=== PATIENT | male | born 1990 | race African-American/Black ===

== ENCOUNTER 2017-01-01 21:02 | Emergency (ER) | payer MEDICARE ==
[~2017-01-01 21:02] MED LIST: DILA4TAB10 PO; OXYC-360 PO
[2017-01-01 21:05] VITALS: BP 127/58; PULSE 98; RESP 22; TEMP 97.6; O2SAT 98
[2017-01-01 21:33] VITALS: BP 87/51; PULSE 105; RESP 23; O2SAT 92
[2017-01-01] MEDS ORDERED: SODIUM CHLOR 0.9% 1000 ML INJ 1,000 ML IV ONE (21:33)
[2017-01-01 21:36] VITALS: RESP 23; O2SAT 92
[2017-01-01] MEDS ORDERED: SODIUM CHLORIDE 0.9% FLUSH 10 ML FLUSH IVF PRN (21:45)
[2017-01-01] MEDS ORDERED: HYDROmorphone HCL PF 1 MG/ML VIAL IVS ONE (21:45)
[2017-01-01 22:04] LABS: AUTOMATED NEUTROPHIL # 13.7 TH/MM3 (1.8-7.7); BASOPHIL # 0.1 TH/MM3 (0-0.2); BASOPHIL % 0.7 % (0.0-2.0); EOSINOPHIL # 0.1 TH/MM3 (0-0.4); EOSINOPHIL % 0.3 % (0.0-4.0); HEMATOCRIT 22.1 % (39.0-51.0); LYMPH % 11.4 % (9.0-44.0); MEAN CELL VOLUME 80.8 FL (80.0-100.0); MEAN CORPUSCULAR HEMOGLOBIN 27.4 PG (27.0-34.0); MEAN CORPUSCULAR HGB CONC 33.9 % (32.0-36.0); MONO % 9.1 % (0.0-8.0); NEUT % 78.5 % (16.0-70.0); PLATELET COUNT 313 TH/MM3 (150-450); RED BLOOD COUNT 2.73 MIL/MM3 (4.50-5.90); RED CELL DISTRIBUTION WIDTH 21.6 % (11.6-17.2); RETIC % 10.3 % (0.4-3.0); WHITE BLOOD COUNT 17.5 TH/MM3 (4.0-11.0)
[2017-01-01 22:06] LABS: HEMO FLAGS AUTO DIFF; REVIEW FLAG AUTO DIFF
[2017-01-01 22:23] LABS: ANION GAP 8 MEQ/L (5-15); AST (GOT) 105 U/L (15-37); BICARBONATE 25.2 MEQ/L (21.0-32.0); BLOOD UREA NITROGEN 6 MG/DL (7-18); CHLORIDE 105 MEQ/L (98-107); GLOMERULAR FILTRATION RATE 139 ML/MIN (>89); POTASSIUM 3.8 MEQ/L (3.5-5.1); SODIUM (NA) 138 MEQ/L (136-145)
[2017-01-01 22:28] LABS: ALKALINE PHOSPHATASE 114 U/L (45-117); ALT (GPT) 90 U/L (12-78); TOTAL BILIRUBIN ADULT 3.7 MG/DL (0.2-1.0)
[2017-01-01 22:53] LABS: BANDS 3 % (0-6); CORRECTED NUCLEATED RBC 12 /100 WBC (0-0); NEUTROPHIL # MANUAL DIFF 15.2 TH/MM3 (1.8-7.7); POLYS (SEG NEUTROPHILS) 84 % (16-70); WBC DIFF SAMPLE 100
[2017-01-01 22:54] LABS: OVALOCYTES 1+ (NORMAL); PLATELET ESTIMATE SMEAR NORMAL (NORMAL); PLATELET MORPHOLOGY NORMAL (NORMAL); SCAN/DIFF FINAL DIFF MANUAL; SICKLE CELLS 2+ (NORMAL); TARGET CELLS 1+ (NORMAL); TEARDROP RBCS 1+ (NORMAL)
[2017-01-01] MEDS ORDERED: HYDROmorphone HCL PF 1 MG/ML VIAL IV PUSH ONE (23:30)
[2017-01-02] VITALS: BP 124/66; PULSE 89; RESP 19; O2SAT 96
--- NOTE | 2017-01-02 00:12 | PD ---
HPI Chief Complaint: Sickle Cell Time Seen by Provider: 21:23 Travel History International Travel<30 days: No Contact w/Intl Traveler<30days: No Traveled to known affect area: No History of Present Illness HPI This is a 26-year-old male who has a history of sickle cell disease who presents to the emergency department with pain all over his body, worse in his joints, constant, severe that been going on for 2 days. Patient says he was taking Percocet at home but that wasn't helping. He denies any shortness of breath, chest pain or fever. 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 PFSH Past Medical History Anemia: Yes Blood Disorders: No Anxiety: No Depression: No Cancer: No Cardiovascular Problems: No Diabetes: No Endocrine: No Gastrointestinal Disorders: No Genitourinary: No Immune Disorder: No Implanted Vascular Access Dvce: No Musculoskeletal: No Neurologic: No Psychiatric: No Reproductive: No Respiratory: No Immunizations Current: Yes Sickle Cell Disease: Yes PNEUMOCCOCAL Vaccine (Year): 2 Past Surgical History Cholecystectomy: Yes Other Surgery: No Social History Alcohol Use: No Tobacco Use: No Substance Use: Yes (MARIJUANA) Allergies-Medications (Allergen,Severity, Reaction): Coded Allergies: No Known Allergies (Verified , 11/30/15) Reported Meds & Prescriptions Reported Meds & Active Scripts Active No Active Prescriptions or Reported Medications Review of Systems Except as stated in HPI: all other systems reviewed are Neg Physical Exam Narrative GENERAL: Uncomfortable appearing. SKIN: Focused skin assessment warm and dry. HEAD: Atraumatic. Normocephalic. EYES: Pupils equal and round. No injection or drainage. ENT: Moist mucous membranes NECK: Trachea midline. CARDIOVASCULAR: Regular rate and rhythm. No murmur appreciated. RESPIRATORY: 3/6 systolic murmur. GASTROINTESTINAL: Abdomen soft, non-tender, nondistended. MUSCULOSKELETAL: No obvious deformities. NEUROLOGICAL: Awake and alert. No obvious cranial nerve deficits. Moving all extremities. PSYCHIATRIC: Appropriate mood and affect; insight and judgment normal. Data Data Last Documented VS Vital Signs Date Time Temp Pulse Resp B/P Pulse Ox O2 Delivery O2 Flow Rate FiO2 01/01/17 21:36 23 92 Room Air 01/01/17 21:33 105 87/51 01/01/17 21:05 97.6 Orders Complete Blood Count With Diff (01/01/17 21:33) Comprehensive Metabolic Panel (01/01/17 21:33) Retic Count (01/01/17 21:33) Ecg Monitoring (01/01/17 21:33) Iv Access Insert/Monitor (01/01/17 21:33) Oximetry (01/01/17 21:33) Sodium Chloride 0.9% Flush (Ns Flush) (01/01/17 21:45) Sodium Chlor 0.9% 1000 Ml Inj (Ns 1000 M (01/01/17 21:33) Hydromorphone Pf Inj (Dilaudid Pf Inj) (01/01/17 21:45) Hydromorphone Pf Inj (Dilaudid Pf Inj) (01/01/17 23:30) Chest, Single Ap (01/02/17 ) Urinalysis - C+S If Indicated (01/02/17 00:12) Sodium Chlor 0.9% 1000 Ml Inj (Ns 1000 M (01/02/17 00:15) Lactic Acid (01/02/17 00:12) Cath For Specimen (01/02/17 01:16) Labs Laboratory Tests Test 01/01/17 01/02/17 01/02/17 21:30 00:25 01:15 White Blood Count 17.5 TH/MM3 Red Blood Count 2.73 MIL/MM3 Hemoglobin 7.5 GM/DL Hematocrit 22.1 % Mean Corpuscular Volume 80.8 FL Mean Corpuscular Hemoglobin 27.4 PG Mean Corpuscular Hemoglobin 33.9 % Concent Red Cell Distribution Width 21.6 % Platelet Count 313 TH/MM3 Mean Platelet Volume 9.3 FL Neutrophils (%) (Auto) 78.5 % Lymphocytes (%) (Auto) 11.4 % Monocytes (%) (Auto) 9.1 % Eosinophils (%) (Auto) 0.3 % Basophils (%) (Auto) 0.7 % Neutrophils # (Auto) 13.7 TH/MM3 Lymphocytes # (Auto) 2.0 TH/MM3 Monocytes # (Auto) 1.6 TH/MM3 Eosinophils # (Auto) 0.1 TH/MM3 Basophils # (Auto) 0.1 TH/MM3 CBC Comment AUTO DIFF Differential Total Cells 100 Counted Neutrophils % (Manual) 84 % Band Neutrophils % 3 % Lymphocytes % 9 % Monocytes % 4 % Neutrophils # (Manual) 15.2 TH/MM3 Nucleated Red Blood Cells 12 /100 WBC Differential Comment FINAL DIFF MANUAL Platelet Estimate NORMAL Platelet Morphology Comment NORMAL Sickle Cells 2+ Target Cells 1+ Tear Drop Cells 1+ Ovalocytes 1+ Reticulocyte Count 10.3 % Absolute Reticulocyte Count 280.5 MIL/L Sodium Level 138 MEQ/L Potassium Level 3.8 MEQ/L Chloride Level 105 MEQ/L Carbon Dioxide Level 25.2 MEQ/L Anion Gap 8 MEQ/L Blood Urea Nitrogen 6 MG/DL Creatinine 0.81 MG/DL Estimat Glomerular Filtration 139 ML/MIN Rate Random Glucose 127 MG/DL Calcium Level 8.7 MG/DL Total Bilirubin 3.7 MG/DL Aspartate Amino Transf 105 U/L (AST/SGOT) Alanine Aminotransferase 90 U/L (ALT/SGPT) Alkaline Phosphatase 114 U/L Total Protein 7.7 GM/DL Albumin 4.0 GM/DL Lactic Acid Level 0.8 mmol/L Urine Color YELLOW Urine Turbidity CLEAR Urine pH 6.5 Urine Specific Scott 1.008 Urine Protein NEG mg/dL Urine Glucose (UA) NEG mg/dL Urine Ketones NEG mg/dL Urine Occult Blood TRACE Urine Nitrite NEG Urine Bilirubin NEG Urine Urobilinogen LESS THAN 2.0 MG/DL Urine Leukocyte Esterase NEG Urine RBC LESS THAN 1 /hpf Urine WBC 1 /hpf Microscopic Urinalysis Comment CULT NOT INDICATED MDM Medical Decision Making Medical Screen Exam Complete: Yes Emergency Medical Condition: Yes Interpretation(s) Leukocytosis, likely stress response in the absence of fever or localized infectious symptoms Hemoglobin is 7.5 Total bilirubin is 3.7 Mild transaminitis Differential Diagnosis Sickle cell vaso-occlusive crisis, acute chest syndrome, sepsis Narrative Course This is a 26-year-old male who presents to the emergency department with pain all over his body in the setting of a sickle cell crisis. He was placed on a monitor and an IV was established. Labs demonstrate a leukocytosis which I suspect his stress response. He is afebrile, has a normal chest x-ray and a normal urinalysis with no localizing infectious symptoms. Patient was given IV fluids. He received 2 doses of IV Dilaudid and his symptoms improved. Patient will be discharged home on pain control. Diagnosis Primary Impression: Vaso-occlusive sickle cell crisis Patient Instructions: General Instructions Additional Instructions: If you develop severe chest pain, shortness of breath, sweating, lightheadedness , dizziness or difficulty breathing return to the emergency department immediately. Followup with your primary care physician in 2-3 days if your symptoms are not resolved. Med/Other Pt SpecificInfo: Prescription(s) given Scripts Ondansetron Odt (Zofran Odt)4 Mg Tab4 Mg SL Q6HR PRN (Nausea/Vomiting) #14 TAB Ref 0 Prov:Marta Morales MD 01/02/17 Oxycodone-Acetaminophen (Percocet)5-325 mg Tab1-2 Tab PO Q6H PRN (PAIN) #15 TAB Ref 0 Prov:Marta Morales MD 01/02/17 Disposition: 01 DISCHARGE HOME Condition: Stable Marta Morales MD January 02, 2017 00:11
[2017-01-02] MEDS ORDERED: SODIUM CHLOR 0.9% 1000 ML INJ 1,000 ML IV ONE (00:15)
--- NOTE | 2017-01-02 01:12 | RADRPT ---
EXAM DATE/TIME: 01/02/2017 00:29 [facility] COMPARISON: CHEST SINGLE AP, August 21, 2014, 7:01. INDICATIONS : Chest and body pain. MEDICAL HISTORY : Sickle Cell disease. SURGICAL HISTORY : None. ENCOUNTER: Initial ACUITY: 1 day PAIN SCORE: 10/10 LOCATION: Bilateral chest FINDINGS: A single view of the chest demonstrates the lungs to be symmetrically aerated without evidence of mas s, infiltrate or effusion. The cardiomediastinal contours are unremarkable. Osseous structures are intact. CONCLUSION: Normal examination. Brandin Masters Jr., MD on January 02, 2017 at 1:11 Board Certified Radiologist. This report was verified electronically.
[2017-01-02 01:28] LABS: BLOOD, URINE TRACE (NEG); GLUCOSE,URINE NEG (NEG); KETONE, URINE NEG (NEG); NITRITE,URINE NEG (NEG); PH, URINE 6.5 (5.0-8.5); URINE COLOR YELLOW (YELLW/STRAW)
[2017-01-02 01:38] LABS: COMMENT (UR) CULT NOT INDICATED; CULTURE IF INDICATED CULT NOT INDICATED
[2017-01-02] MEDS ORDERED: HYDROmorphone HCL PF 1 MG/ML VIAL IV PUSH ONE (01:45)
[2017-01-02] MEDS ORDERED: PERC5TAB12 PO (01:46)
[2017-01-02] MEDS ORDERED: ZOFR4TAB3 SL (01:46)
[2017-01-02 02:00] VITALS: BP 112/59; PULSE 98; RESP 20; O2SAT 98
== END 2017-01-02 02:27 | disposition home or self-care (01) ==
LOC: NEPC 21:02
DX: D57.00 Hb-SS disease with crisis, unspecified (principal)
CPT/HCPCS: 71010; 80053; 81001; 83605; 85007; 85027; 85044; 96361; 96374; 96376; 99285; J1170; J7030

== ENCOUNTER 2017-01-02 10:36 | Inpatient (IN) | payer MEDICARE ==
[~2017-01-02] VITALS: Ht 165.1 cm; Wt 50.3 kg
[2017-01-02] VITALS (7 sets, daily range): BP systolic 104–139; BP diastolic 51–62; PULSE 88–161; RESP 14–18; TEMP 97.8–102.1; O2SAT 92–100
[~2017-01-02 10:36] MED LIST changes: -DILA4TAB10 PO; -OXYC-360 PO; +PERC5TAB12 PO; +ZOFR4TAB3 SL
[2017-01-02] MEDS ORDERED: HYDROmorphone HCL PF 1 MG/ML VIAL IV PUSH ONE ×2 (11:00→13:00)
[2017-01-02] MEDS ORDERED: SODIUM CHLOR 0.9% 1000 ML INJ 1,000 ML IV ONE (11:00)
[2017-01-02 11:32] LABS: AUTOMATED NEUTROPHIL # 10.7 TH/MM3 (1.8-7.7); BASOPHIL # 0.1 TH/MM3 (0-0.2); BASOPHIL % 0.6 % (0.0-2.0); EOSINOPHIL # 0.1 TH/MM3 (0-0.4); EOSINOPHIL % 0.5 % (0.0-4.0); HEMATOCRIT 22.8 % (39.0-51.0); LYMPH % 15.9 % (9.0-44.0); LYMPHOCYTE # 2.4 TH/MM3 (1.0-4.8); MEAN CELL VOLUME 80.7 FL (80.0-100.0); MEAN CORPUSCULAR HEMOGLOBIN 27.7 PG (27.0-34.0); MEAN CORPUSCULAR HGB CONC 34.3 % (32.0-36.0); MONO % 10.8 % (0.0-8.0); NEUT % 72.2 % (16.0-70.0); PLATELET COUNT 311 TH/MM3 (150-450); RED BLOOD COUNT 2.82 MIL/MM3 (4.50-5.90); RED CELL DISTRIBUTION WIDTH 21.8 % (11.6-17.2); RETIC % 12.5 % (0.4-3.0); WHITE BLOOD COUNT 14.9 TH/MM3 (4.0-11.0)
[2017-01-02 11:36] LABS: HEMO FLAGS AUTO DIFF
[2017-01-02 11:43] LABS: BICARBONATE 24.4 MEQ/L (21.0-32.0); POTASSIUM 3.7 MEQ/L (3.5-5.1)
--- NOTE | 2017-01-02 12:31 | PD ---
HPI Chief Complaint: Sickle Cell Time Seen by Provider: 10:42 Travel History International Travel<30 days: No Contact w/Intl Traveler<30days: No Traveled to known affect area: No History of Present Illness HPI 26yo M with PMH of sickle cell disease presents to the ED with c/o generalized pain. Pt was just discharged from [place] this morning after 2 doses of dilaudid. Pt states he was instructed to return to the ED if pain returned. Denies any fever, chest pain, sob, n/v, abdominal pain, focal weakness or numbness. PFSH Past Medical History Anemia: Yes (SICKLE CELL ANEMIA) Blood Disorders: No Anxiety: No Depression: No Cancer: No Cardiovascular Problems: No Diabetes: No Endocrine: No Gastrointestinal Disorders: No Genitourinary: No Immune Disorder: No Implanted Vascular Access Dvce: No Musculoskeletal: No Neurologic: No Psychiatric: No Reproductive: No Respiratory: No Immunizations Current: Yes Sickle Cell Disease: Yes Influenza Vaccination: No PNEUMOCCOCAL Vaccine (Year): 2 ?: Not Past Surgical History Cholecystectomy: Yes Other Surgery: No Social History Alcohol Use: No Tobacco Use: No Substance Use: Yes (MARIJUANA) Allergies-Medications (Allergen,Severity, Reaction): Coded Allergies: No Known Allergies (Verified , 01/02/17) Reported Meds & Prescriptions Reported Meds & Active Scripts Active Zofran Odt (Ondansetron Odt) 4 Mg Tab 4 Mg SL Q6HR PRN Percocet (Oxycodone-Acetaminophen) 5-325 mg Tab 1-2 Tab PO Q6H PRN Review of Systems Except as stated in HPI: all other systems reviewed are Neg Physical Exam Narrative GENERAL: 26yo M in moderate distress. SKIN: Focused skin assessment warm/dry. HEAD: Atraumatic. Normocephalic. CARDIOVASCULAR: Regular rate and rhythm. No murmur appreciated. RESPIRATORY: No accessory muscle use. Clear to auscultation. Breath sounds equal bilaterally. GASTROINTESTINAL: Abdomen soft, non-tender, nondistended. No rebound tenderness or guarding. MUSCULOSKELETAL: No obvious deformities. No clubbing. No cyanosis. No edema. NEUROLOGICAL: Awake and alert. No obvious cranial nerve deficits. Motor grossly within normal limits. Normal speech. PSYCHIATRIC: Appropriate mood and affect; insight and judgment normal. Data Data Last Documented VS Vital Signs Date Time Temp Pulse Resp B/P Pulse Ox O2 Delivery O2 Flow Rate FiO2 01/02/17 11:38 93 14 118/62 99 Nasal Cannula 2 01/02/17 10:37 97.8 Orders Hydromorphone Pf Inj (Dilaudid Pf Inj) (01/02/17 11:00) Sodium Chlor 0.9% 1000 Ml Inj (Ns 1000 M (01/02/17 11:00) Basic Metabolic Panel (Bmp) (01/02/17 10:52) Complete Blood Count With Diff (01/02/17 10:52) Retic Count (01/02/17 10:52) Admit Order (Ed Use Only) (01/02/17 12:50) Hydromorphone Pf Inj (Dilaudid Pf Inj) (01/02/17 13:00) Labs Laboratory Tests Test 01/02/17 11:00 White Blood Count 14.9 TH/MM3 Red Blood Count 2.82 MIL/MM3 Hemoglobin 7.8 GM/DL Hematocrit 22.8 % Mean Corpuscular Volume 80.7 FL Mean Corpuscular Hemoglobin 27.7 PG Mean Corpuscular Hemoglobin 34.3 % Concent Red Cell Distribution Width 21.8 % Platelet Count 311 TH/MM3 Mean Platelet Volume 9.6 FL Neutrophils (%) (Auto) 72.2 % Lymphocytes (%) (Auto) 15.9 % Monocytes (%) (Auto) 10.8 % Eosinophils (%) (Auto) 0.5 % Basophils (%) (Auto) 0.6 % Neutrophils # (Auto) 10.7 TH/MM3 Lymphocytes # (Auto) 2.4 TH/MM3 Monocytes # (Auto) 1.6 TH/MM3 Eosinophils # (Auto) 0.1 TH/MM3 Basophils # (Auto) 0.1 TH/MM3 CBC Comment AUTO DIFF Differential Total Cells 100 Counted Neutrophils % (Manual) 59 % Band Neutrophils % 3 % Lymphocytes % 29 % Monocytes % 8 % Eosinophils % 1 % Neutrophils # (Manual) 9.2 TH/MM3 Nucleated Red Blood Cells 9 /100 WBC Differential Comment FINAL DIFF MANUAL Platelet Estimate NORMAL Platelet Morphology Comment NORMAL Polychromasia 2.4 % Sickle Cells 1+ Target Cells 2+ Red Cell Morphology Comment Reticulocyte Count 12.5 % Absolute Reticulocyte Count 351.5 MIL/L Sodium Level 138 MEQ/L Potassium Level 3.7 MEQ/L Chloride Level 105 MEQ/L Carbon Dioxide Level 24.4 MEQ/L Anion Gap 9 MEQ/L Blood Urea Nitrogen 5 MG/DL Creatinine 0.64 MG/DL Estimat Glomerular Filtration 182 ML/MIN Rate Random Glucose 101 MG/DL Calcium Level 8.6 MG/DL Total Bilirubin 5.1 MG/DL Direct Bilirubin 0.8 MG/DL Indirect Bilirubin 4.3 MG/DL Aspartate Amino Transf 91 U/L (AST/SGOT) Alanine Aminotransferase 80 U/L (ALT/SGPT) Alkaline Phosphatase 114 U/L Total Protein 7.2 GM/DL Albumin 3.6 GM/DL 25-Hydroxy Vitamin D Total 5.9 ng/ML MDM Medical Decision Making Medical Screen Exam Complete: Yes Emergency Medical Condition: Yes Differential Diagnosis Vasoocclusive crisis Narrative Course 26yo M with sickle cell disease here with generalized pain that feels like his sickle cell. Pt was here today and had negative CXR and UA. Labs reviewed, leukocytosis at 14.9 which is improved from 17.5 yesterday. H/H is at baseline at 7.8/22.8. Pt does have elevated absolute reticulocyte count at 351.5. Pt given dilaudid 1mg IV and NS IVF. Pt reevaluated at bedside and states he is still in pain. Pt given another dose of dilaudid IV. Discussed case with resident physician. Will admit for observation for vasoocclusive crisis. Diagnosis Primary Impression: Vaso-occlusive sickle cell crisis Admitting Information Admitting Physician Requests: Observation Krupa Phelps DO January 02, 2017 12:31
[2017-01-02 12:32] LABS: BANDS 3 % (0-6); CORRECTED NUCLEATED RBC 9 /100 WBC (0-0); EOSINOPHILS 1 % (0-4); NEUTROPHIL # MANUAL DIFF 9.2 TH/MM3 (1.8-7.7); PLATELET ESTIMATE SMEAR NORMAL (NORMAL); POLYS (SEG NEUTROPHILS) 59 % (16-70); SICKLE CELLS 1+ (NORMAL); WBC DIFF SAMPLE 100
[2017-01-02 12:33] LABS: PLATELET MORPHOLOGY NORMAL (NORMAL); POLYCHROMASIA 2.4 % (0.0-1.9); SCAN/DIFF FINAL DIFF MANUAL; TARGET CELLS 2+ (NORMAL)
[2017-01-02] MEDS ORDERED: ACETAMINOPHEN 325 MG TAB PO PRN (13:00)
[2017-01-02] MEDS ORDERED: ONDANSETRON HCL 4 MG/2 ML VIAL IV PRN (13:00)
[2017-01-02] MEDS ORDERED: HYDROmorphone HCL PF 1 MG/ML VIAL IV PRN (13:00)
[2017-01-02] MEDS: SODIUM CHLOR 0.9% 1000 ML INJ 1,000 ML IV SCH ×2 (13:34→21:54)
[2017-01-02] MEDS: HEPARIN SODIUM - SQ 10,000 UNITS/ML VIAL SQ SCH ×2 (13:34→21:53)
--- NOTE | 2017-01-02 13:46 | HHI.HP ---
HPI Service Family Medicine Primary Care Physician Unknown Admission Diagnosis Vasooclussive crisis Diagnoses: International Travel<30 Days: No Contact w/Intl Traveler<30days: No Known Affected Area: No History of Present Illness Patient is a 26 year old male with history of sickle cell disease who presents with an possibly 2 day history of extremity and low back pain. He states the pain is localized to his knees bilaterally, elbows bilaterally, and lower back. He has had multiple vaso-occlusive crises in the past and his has occurred in multiple locations and this feels similar. No chest pain, shortness of breath. No recent illnesses. No sick contacts. He also denies headache, vision changes, dizziness, abdominal pain. He did have Percocet from a previous hospitalization at [facility] and he states taking 12 of these over the day's time prior to presenting to [facility] yesterday. He presented to the [facility] ED on 01/01 for the symptoms, received 2 doses of IV Dilaudid, and was discharged early this morning. He was given prescription for Percocet 5s but he did not fill this. The pain did not subside despite so he decided to return to the hospital. He states that between his vaso -occlusive crises he doesn't generally take much pain medication so he does not know what his baseline requirements are. In regard to his sickle cell history, patient did not have his first episode of crisis center after high school. He is unsure of the preventative measures that were taken when he was a child, and it is unknown if he has been. He is currently not on any medications aside from occasional pain medications. He denies having history of acute chest, stroke, ACS. 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 (Terri Wilson MD R1) Review of Systems Constitutional: DENIES: Fever, Weight loss, Chills, Dizziness, Change in appetite Endocrine: DENIES: Polyuria Eyes: DENIES: Blurred vision, Diplopia, Eye pain Ears, nose, mouth, throat: DENIES: Hearing loss, Vertigo Respiratory: DENIES: Cough, Snoring, Wheezing, Sputum production, Shortness of breath Cardiovascular: DENIES: Chest pain, Syncope Gastrointestinal: DENIES: Abdominal pain, Black stools, Bloody stools, Constipation, Diarrhea, Nausea, Vomiting Genitourinary: DENIES: Urinary frequency, Urgency, Hematuria, Dysuria Musculoskeletal: COMPLAINS OF: Joint pain (knees, elbows, lower back), Back pain, DENIES: Stiffness Integumentary: DENIES: Pruritus, Rash Neurologic: DENIES: Abnormal gait, Headache, Localized weakness Psychiatric: DENIES: Anxiety, Mood changes, Depression (Terri Wilson MD R1) Past Family Social History Past Medical History Sickle Cell Disease Past Surgical History Cholecystectomy age 12 Still has his spleen Reported Medications Reported Meds & Active Scripts Active Zofran Odt (Ondansetron Odt) 4 Mg Tab 4 Mg SL Q6HR PRN Percocet (Oxycodone-Acetaminophen) 5-325 mg Tab 1-2 Tab PO Q6H PRN (Terri Wilson MD R1) Allergies: Coded Allergies: No Known Allergies (Verified , 01/02/17) Family History Maternal Cousin with SSD Social History Cigarettes: never Alcohol: occasional Illicit: marijuana Lives with mom (Terri Wilson MD R1) Physical Exam Vital Signs Vital Signs Date Time Temp Pulse Resp B/P Pulse Ox O2 Delivery O2 Flow Rate FiO2 01/02/17 11:38 93 14 118/62 99 Nasal Cannula 2 01/02/17 11:02 93 16 104/51 100 Nasal Cannula 2 01/02/17 10:37 97.8 89 16 113/57 99 Physical Exam GENERAL: Thin -Burmese male lying in bed with eyes closed, not moving. He is alert but appears to be in pain. SKIN: Warm and dry. No rashes or bruises. HEAD: Atraumatic. Normocephalic. EYES: PERRL. scleral icterus noted, mild. No injection or drainage. Conjunctival pallor noted. ENT: No nasal bleeding or discharge. Mucous membranes pink and moist. NECK: Trachea midline. No JVD. CARDIOVASCULAR: Regular rate and rhythm. NICKI noted throughout cardiac field. 2+ pulses noted in the upper extremities bilaterally. RESPIRATORY: No accessory muscle use. Clear to auscultation. No wheezes, rales, or rhonchi noted. GASTROINTESTINAL: Abdomen soft, think, non-tender, nondistended. Hepatic and splenic margins not palpable. : Hemoconcentrated urine. MUSCULOSKELETAL: Joint exam is unremarkable with no evidence of swelling, erythema, warmth, or pain. Extremities without clubbing, cyanosis, or edema. No obvious deformities. NEUROLOGICAL: Awake and alert. No obvious cranial nerve deficits. Motor grossly within normal limits. Five out of 5 muscle strength in the arms and legs. Normal speech. PSYCHIATRIC: Appropriate mood and affect; insight and judgment normal. Laboratory Laboratory Tests Test 01/02/17 11:00 White Blood Count 14.9 Red Blood Count 2.82 Hemoglobin 7.8 Hematocrit 22.8 Mean Corpuscular Volume 80.7 Mean Corpuscular Hemoglobin 27.7 Mean Corpuscular Hemoglobin 34.3 Concent Red Cell Distribution Width 21.8 Platelet Count 311 Mean Platelet Volume 9.6 Neutrophils (%) (Auto) 72.2 Lymphocytes (%) (Auto) 15.9 Monocytes (%) (Auto) 10.8 Eosinophils (%) (Auto) 0.5 Basophils (%) (Auto) 0.6 Neutrophils # (Auto) 10.7 Lymphocytes # (Auto) 2.4 Monocytes # (Auto) 1.6 Eosinophils # (Auto) 0.1 Basophils # (Auto) 0.1 CBC Comment AUTO DIFF Differential Total Cells 100 Counted Neutrophils % (Manual) 59 Band Neutrophils % 3 Lymphocytes % 29 Monocytes % 8 Eosinophils % 1 Neutrophils # (Manual) 9.2 Nucleated Red Blood Cells 9 Differential Comment FINAL DIFF MANUAL Platelet Estimate NORMAL Platelet Morphology Comment NORMAL Polychromasia 2.4 Sickle Cells 1+ Target Cells 2+ Red Cell Morphology Comment Reticulocyte Count 12.5 Absolute Reticulocyte Count 351.5 Sodium Level 138 Potassium Level 3.7 Chloride Level 105 Carbon Dioxide Level 24.4 Anion Gap 9 Blood Urea Nitrogen 5 Creatinine 0.64 Estimat Glomerular Filtration 182 Rate Random Glucose 101 Calcium Level 8.6 (Terri Wilson MD R1) Result Diagram: 01/02/17 1100 01/02/17 1100 Imaging CXR performed 01/02 at 0029 - normal examination (Terri Wilson MD R1) Assessment and Plan Assessment and Plan 26-year-old male with a history of sickle cell anemia who presents with acute vaso-occlusive crisis without evidence of stroke, ACS, or acute chest syndrome. Admit to inpatient for further monitoring and pain control. Code Status Full code Discussed Condition With Seen and discussed with Dr. Hinson and Dr. Elena (Terri Wilson MD R1) Attending Attestation Patient seen and examined. Case reviewed and discussed with the resident team. Agree with plan of care as discussed with me and documented in the resident note. pt seen on admission in the ED (Cheyenne Hinson MD) Problem List: (1) Vaso-occlusive sickle cell crisis Status: Acute Plan: Patient presents with acute vaso-occlusive crisis. His reticulocyte count is noted to be greater than 15, and it is increased from evaluation yesterday. His H&H is 7.8/22.8. On review of EMR, it appears patient's baseline is approximately 78. Highest hemoglobin on record is 9.4 after transfusion. CXR performed early this morning was unremarkable. CBC to be at approximately patient's baseline. There is no evidence of infection on patient's history or physical exam. Plan: * Aggressive IV fluid resuscitation is indicated-->isotonic IV fluids at 100 mL/ h, may decrease in the next 24h or as needed. * Monitor H&H. Avoid transfusions given increased mortality with these * Pain management with Dilaudid 0.5 mg IV q4h for pain 1-5, Dilaudid 1 mg IV q4h for pain 6-10. We'll give laxative and antiemetics to manage side effects * Hematology consult. Patient has not had any outpatient follow-up in adulthood , likely would benefit from vaccinations and Hydroxyurea * Case management consult to assist in setting up with PCP * Hepatic function panel ordered given patient has mild jaundice (2) Fluids/Electrolytes/Nutrition/Prophylaxis Status: Acute Plan: Fluids: NS @ 100ml/hr Electrolytes: monitor and replete as needed Nutrition: Regular diet DVT Prophylaxis: Heparin 5000U subQ q8hr/bilateral SCDs GI Prophylaxis: None indicated (Terri Wilson MD R1) Physician Certification 2 Midnight Certification Type: Admission for Inpatient Services Order for Inpatient Services The services are ordered in accordance with Medicare regulations or non- Medicare payer requirements, as applicable. In the case of services not specified as inpatient-only, they are appropriately provided as inpatient services in accordance with the 2-midnight benchmark. Estimated LOS (days): 3 days is the estimated time the patient will need to remain in the hospital, assuming treatment plan goals are met and no additional complications. Post-Hospital Plan: Home (Terri Wilson MD R1) Terri Wilson MD R1 January 02, 2017 13:46 Cheyenne Hinson MD January 03, 2017 10:44
[2017-01-02] MEDS: HYDROmorphone HCL PF 2 MG/ML VIAL IV PRN ×2 (15:00→19:45)
[2017-01-02 16:47] LABS: TOTAL BILIRUBIN ADULT 5.1 MG/DL (0.2-1.0)
[2017-01-02 16:51] LABS: INDIRECT BILIRUBIN 4.3 MG/DL (0.0-0.8)
[2017-01-02] MEDS: SODIUM CHLORIDE 0.9% FLUSH 10 ML FLUSH IV FLUSH SCH (19:46)
--- NOTE | 2017-01-02 21:08 | HHI.FPPN ---
Addendum to progress note ADDENDUM Reason for addendum: Additonal documentation Additional information S: Paged regarding oral temperature of 102.1F. Patient was seen and examined. Patient was resting comfortably in bed. Denied any new symptoms since presenting to the ED. Denied feeling feverish, denied malaise, chest pain, shortness of breath, cough, sputum production, belly pain, headache, visual changes, urinary symptoms, denied any new pain around body. He stated his pain was better controlled now at a 4/10 improved from 8/10 on admission. O: GENERAL: -Kittitian male lying in bed in NAD SKIN: Warm and dry. No rashes or bruises. EYES: Mild scleral icterus. No injection or drainage. Conjunctival pallor. CARDIOVASCULAR: Regular rate and rhythm. NICKI noted throughout cardiac field. Peripheral pulses 2+. RESPIRATORY: No accessory muscle use. Clear to auscultation throughout. No wheezes, rales, or rhonchi. GASTROINTESTINAL: Abdomen soft, non-tender, nondistended, +BS. Hepatic and splenic margins not palpable. MUSCULOSKELETAL: Joint exam is unremarkable with no evidence of swelling, erythema, warmth, or pain. Extremities without edema. No obvious deformities. NEUROLOGICAL: Awake and alert. criminalist technician grossly intact. Motor grossly within normal limits. Normal speech. A/P: Patient is a 26 year old male with sickle cell anemia presented with acute vaso-occlusive crisis without evidence of stroke, ACS, or acute chest syndrome now with a febrile episode up to 102.1F - Patient is well-appearing with no acute symptoms - Exam is reassuring at this time with clear lung oates, benign abdomen and no new bony pain - Patient does have a leukocytosis to 14.9 but improved from 17.5 on previous presentation yesterday, will continue to monitor - Will obtain blood cultures and urine culture - Instructed patient that if he have any new symptoms particularly fever, chest pain, SOB, cough, BISHOP, neck stiffness, localized weakness, abdominal pain to let his nurse know and patient will be reevaluated Aramis Izquierdo MD R1 January 02, 2017 21:08
[2017-01-02] MEDS: DOCUSATE SODIUM 100 MG CAP PO SCH (21:54)
[2017-01-02 22:55] LABS: BLOOD, URINE NEG (NEG); GLUCOSE,URINE NEG (NEG); KETONE, URINE NEG (NEG); NITRITE,URINE NEG (NEG); URINE COLOR YELLOW (YELLW/STRAW)
[2017-01-02 22:56] LABS: COMMENT (UR) CULT NOT INDICATED; CULTURE IF INDICATED CULT NOT INDICATED
[2017-01-02] MEDS: HYDROmorphone HCL PF 1 MG/ML VIAL IV PUSH PRN (23:44)
[2017-01-02] MEDS: SODIUM CHLORIDE 0.9% FLUSH 10 ML FLUSH IV FLUSH PRN (23:46)
[2017-01-03] VITALS (10 sets, daily range): BP systolic 108–144; BP diastolic 53–65; PULSE 74–108; RESP 16–18; TEMP 98.8–102.3; O2SAT 96–99
[2017-01-03] MEDS: HYDROmorphone HCL PF 1 MG/ML VIAL IV PUSH PRN ×5 (04:42→23:31)
[2017-01-03] MEDS: HEPARIN SODIUM - SQ 10,000 UNITS/ML VIAL SQ SCH ×3 (04:42→20:03)
[2017-01-03 07:05] LABS: RETIC % 14.8 % (0.4-3.0)
[2017-01-03 07:07] LABS: AUTOMATED NEUTROPHIL # 8.5 TH/MM3 (1.8-7.7); BASOPHIL # 0.1 TH/MM3 (0-0.2); BASOPHIL % 0.6 % (0.0-2.0); EOSINOPHIL # 0.1 TH/MM3 (0-0.4); EOSINOPHIL % 0.5 % (0.0-4.0); LYMPH % 17.2 % (9.0-44.0); LYMPHOCYTE # 2.2 TH/MM3 (1.0-4.8); MEAN CELL VOLUME 82.5 FL (80.0-100.0); MEAN CORPUSCULAR HEMOGLOBIN 27.2 PG (27.0-34.0); MEAN CORPUSCULAR HGB CONC 32.9 % (32.0-36.0); MONO % 14.8 % (0.0-8.0); NEUT % 66.9 % (16.0-70.0); PLATELET COUNT 263 TH/MM3 (150-450); RED CELL DISTRIBUTION WIDTH 20.2 % (11.6-17.2); WHITE BLOOD COUNT 12.8 TH/MM3 (4.0-11.0)
[2017-01-03 07:09] LABS: REVIEW FLAG FINAL
[2017-01-03] MEDS: SODIUM CHLOR 0.9% 1000 ML INJ 1,000 ML IV SCH ×2 (07:10→18:10)
[2017-01-03 07:15] LABS: HEMO FLAGS AUTO DIFF
[2017-01-03 07:20] LABS: HEMATOCRIT 21.5 % (39.0-51.0)
--- NOTE | 2017-01-03 07:30 | MB ---
cc: ANGELA BARGER M.D. DATE OF CONSULTATION 01/02/2017 REASON FOR CONSULTATION Consult requested by family practice resident for evaluation of sickle cell painful crisis. HISTORY OF PRESENT ILLNESS Codie is a 26-year-old male. He has a history of sickle-cell disease with multiple painful crisis. He does not have any local ply cutter. He states that he goes to the emergency room whenever he gets the painful crisis. He states that he gets a painful crisis three to four times a year. He came to the emergency room complaining of back pain and leg pain consistent with his painful crisis. The patient is now admitted to the hospital. I have been asked to see him for further evaluation. The patient is not taking any Hydrea or any folic acid. He uses narcotics whenever he can get it from the emergency room. He is not established with any primary physician as well. The patient denies any chest pain. He denies any fevers. The rest of the review of systems is negative. PAST MEDICAL HISTORY Sickle-cell disease with multiple painful crisis. PAST SURGICAL HISTORY Cholecystectomy at age of 12. ALLERGIES None MEDICATIONS Prior to coming to the hospital: 1. Percocet 2. Zofran FAMILY HISTORY Maternal cousin has sickle-cell disease. SOCIAL HISTORY The patient does not smoke cigarettes and does not drink alcohol. PHYSICAL EXAM This is a well-developed Afro-Q[place] male in moderate distress due to the pain. VITAL SIGNS: Temperature 100, heart rate is 88, blood pressure 139/55, O2 suture saturation 98% on room air. HEENT: PERRLA, EOMI, sclerae is deeply icteric. Oral mucosa is dry. NECK: No lymphadenopathy noted. LUNGS: Clear. No wheezing or rales. HEART: Regular rate and rhythm. ABDOMEN: Soft and nontender. No hepatosplenomegaly. EXTREMITIES: No pedal edema. NEUROLOGIC: Awake, alert, and oriented times three. SKIN: No significant lesions are noted. ASSESSMENT 1. History of sickle-cell disease now admitted with a painful crisis. 2. Hemolytic painful crisis. PLAN I have reviewed his available records and I have discussed with the patient regarding the painful crisis. His CBC today showed a white count of 14.9, hemoglobin 7.8, hematocrit 22.8, platelet count is 311. The compressive metabolic profile is significant for bilirubin of 5.1 and direct lumen 4.3, AST is 91, ALT is 80. The patient has hemolytic anemia. The patient is receiving hydration, folic acid, and Dilaudid. I agree with the present management. He does not require any blood transfusion. I will give him one unit of blood transfusion if his hemoglobin dropped below seven. I will get the hemoglobin electrophoresis to confirm sickle-cell disease as well as to evaluate for the hemoglobin F. If the hemoglobin-F is low, then I recommend Hydrea to decrease the incidence of painful crisis. Further recommendations based on his hospital stay. Thank you for asking my opinion. MD RIANNA Henderson/ESPERANZA /7:30 PM /7:23 AM
[2017-01-03 07:39] LABS: POTASSIUM 3.4 MEQ/L (3.5-5.1)
--- NOTE | 2017-01-03 08:53 | PD.ONC.PN ---
Subjective Subjective Remarks Tmax 102.3 overnight. Blood cutures, UA pending. Pt c/o lower back pain Overall pain minimally improved Denies SOB, chest pain Objective Data Date Time Temp Pulse Resp B/P Pulse Ox O2 Delivery O2 Flow Rate FiO2 01/03/17 05:00 99.5 79 16 122/55 99 01/03/17 03:54 96 21 01/03/17 00:17 107 01/03/17 00:00 102.3 108 18 108/53 96 01/02/17 23:28 161 01/02/17 20:00 102.1 98 16 117/58 94 01/02/17 20:00 100 01/02/17 18:00 92 21 01/02/17 16:00 100.0 88 18 139/55 98 01/02/17 11:38 93 14 118/62 99 Nasal Cannula 2 01/02/17 11:02 93 16 104/51 100 Nasal Cannula 2 01/02/17 10:37 97.8 89 16 113/57 99 Result Diagram: 01/03/17 0613 01/03/1713 Laboratory Results Laboratory Tests Test 01/02/17 01/02/17 01/03/17 11:00 21:50 06:13 White Blood Count 14.9 TH/MM3 12.8 TH/MM3 Red Blood Count 2.82 MIL/MM3 2.60 MIL/MM3 Hemoglobin 7.8 GM/DL 7.1 GM/DL Hematocrit 22.8 % 21.5 % Mean Corpuscular Volume 80.7 FL 82.5 FL Mean Corpuscular Hemoglobin 27.7 PG 27.2 PG Mean Corpuscular Hemoglobin 34.3 % 32.9 % Concent Red Cell Distribution Width 21.8 % 20.2 % Platelet Count 311 TH/MM3 263 TH/MM3 Mean Platelet Volume 9.6 FL 9.6 FL Neutrophils (%) (Auto) 72.2 % 66.9 % Lymphocytes (%) (Auto) 15.9 % 17.2 % Monocytes (%) (Auto) 10.8 % 14.8 % Eosinophils (%) (Auto) 0.5 % 0.5 % Basophils (%) (Auto) 0.6 % 0.6 % Neutrophils # (Auto) 10.7 TH/MM3 8.5 TH/MM3 Lymphocytes # (Auto) 2.4 TH/MM3 2.2 TH/MM3 Monocytes # (Auto) 1.6 TH/MM3 1.9 TH/MM3 Eosinophils # (Auto) 0.1 TH/MM3 0.1 TH/MM3 Basophils # (Auto) 0.1 TH/MM3 0.1 TH/MM3 CBC Comment AUTO DIFF AUTO DIFF Differential Total Cells 100 Counted Neutrophils % (Manual) 59 % Band Neutrophils % 3 % Lymphocytes % 29 % Monocytes % 8 % Eosinophils % 1 % Neutrophils # (Manual) 9.2 TH/MM3 Nucleated Red Blood Cells 9 /100 WBC Differential Comment FINAL DIFF MANUAL Platelet Estimate NORMAL Platelet Morphology Comment NORMAL Polychromasia 2.4 % Sickle Cells 1+ Target Cells 2+ Red Cell Morphology Comment Reticulocyte Count 12.5 % 14.8 % Absolute Reticulocyte Count 351.5 MIL/L 377.9 MIL/L Sodium Level 138 MEQ/L 141 MEQ/L Potassium Level 3.7 MEQ/L 3.4 MEQ/L Chloride Level 105 MEQ/L 106 MEQ/L Carbon Dioxide Level 24.4 MEQ/L 27.0 MEQ/L Anion Gap 9 MEQ/L 8 MEQ/L Blood Urea Nitrogen 5 MG/DL 5 MG/DL Creatinine 0.64 MG/DL 0.58 MG/DL Estimat Glomerular Filtration 182 ML/MIN 204 ML/MIN Rate Random Glucose 101 MG/DL 104 MG/DL Calcium Level 8.6 MG/DL 8.4 MG/DL Total Bilirubin 5.1 MG/DL Direct Bilirubin 0.8 MG/DL Indirect Bilirubin 4.3 MG/DL Aspartate Amino Transf 91 U/L (AST/SGOT) Alanine Aminotransferase 80 U/L (ALT/SGPT) Alkaline Phosphatase 114 U/L Total Protein 7.2 GM/DL Albumin 3.6 GM/DL 25-Hydroxy Vitamin D Total 5.9 ng/ML Urine Color YELLOW Urine Turbidity CLEAR Urine pH 7.0 Urine Specific [place] 1.005 Urine Protein NEG mg/dL Urine Glucose (UA) NEG mg/dL Urine Ketones NEG mg/dL Urine Occult Blood NEG Urine Nitrite NEG Urine Bilirubin NEG Urine Urobilinogen 2.0 MG/DL Urine Leukocyte Esterase NEG Urine WBC LESS THAN 1 /hpf Microscopic Urinalysis Comment CULT NOT INDICATED Culture Results Microbiology Date/Time Procedure Status Source Growth 01/02/17 21:50 Urine Culture Received Urine Clean Catch Pending 01/02/17 22:25 Aerobic Blood Culture Received Blood Peripheral Pending 01/02/17 22:25 Anaerobic Blood Culture Received Blood Peripheral Pending 01/02/17 22:30 Aerobic Blood Culture Received Blood Peripheral Pending 01/02/17 22:30 Anaerobic Blood Culture Received Blood Peripheral Pending Administered Medications Medications (Trade) Dose Ordered Sig/Jorge Luis Route PRN Reason Start Time Stop Time Status Last Admin Dose Admin Sodium Chloride (NS 1000 ml Inj) 1,000 ml @ 100 mls/hr Q10H IV 01/02/17 13:00 01/03/17 07:10 Sodium Chloride (NS Flush) 2 ml UNSCH PRN IV FLUSH FLUSH AFTER USING IV ACCESS 01/02/17 13:00 01/02/17 23:46 Sodium Chloride (NS Flush) 2 ml BID IV FLUSH 01/02/17 21:00 01/02/17 19:46 Acetaminophen (Tylenol) 650 mg Q4H PRN PO FEVER 01/02/17 13:00 01/02/17 23:41 Docusate Sodium (Colace) 100 mg BID PO 01/02/17 21:00 01/02/17 21:54 Heparin Sodium (Porcine) (Heparin Inj) 5,000 units Q8H SQ 01/02/17 13:00 01/03/17 04:42 Hydromorphone HCl (Dilaudid Pf Inj) 1 mg Q4H PRN IV PUSH PAIN SCALE 6 TO 10 01/02/17 23:40 01/03/17 04:42 Objective Remarks GENERAL: Young male, asleep in bed on approach. Awakens easily. SKIN: Warm and dry. HEAD: Normocephalic. EYES: No injection or drainage. NECK: Supple, trachea midline. No JVD or lymphadenopathy. CARDIOVASCULAR: Regular rate and rhythm without murmurs. RESPIRATORY: Breath sounds equal bilaterally. No accessory muscle use. GASTROINTESTINAL: Abdomen soft, non-tender, nondistended. EXTREMITIES: No cyanosis, or edema. NEUROLOGICAL: Awakens easily. Moving all extremities. Normal speech. Assessment/Plan Problem List: (1) Vaso-occlusive sickle cell crisis Status: Acute Plan: 01/03/17: Continue IVF, pain medications. Await results of blood cultures, UA and Hgb electrophoresis. Pain is overall slightly improved. Plan to transfuse for Hgb less than 7. Assessment 26 y/o male with history of sickle cell disease presents to the ER with c/o acute vasoocclusive pain crises. Attending Statement c/o back pain Control with dilaudid 1 mg q 4hrs. Does not want to increase it. D/W about hydrea. BC result pending. The exam, history, and the medical decision-making described in the above note were completed with the assistance of the mid-level provider. I reviewed and agree with the findings presented. I attest that I had a [id number] encounter with the patient on the same day, and personally performed and documented my assessment and findings in the medical record. Lisa Pickard January 03, 2017 08:53 Dominic Land MD January 03, 2017 22:08
[2017-01-03] MEDS: MULTIVITAMIN TAB PO SCH (08:54)
[2017-01-03] MEDS: DOCUSATE SODIUM 100 MG CAP PO SCH ×2 (08:54→20:02)
[2017-01-03] MEDS: FOLIC ACID 1 MG TAB PO SCH (08:54)
[2017-01-03] MEDS: SODIUM CHLORIDE 0.9% FLUSH 10 ML FLUSH IV FLUSH SCH ×2 (08:58→20:05)
[2017-01-03 09:17] LABS: BANDS 13 % (0-6); CORRECTED NUCLEATED RBC 3 /100 WBC (0-0); EOSINOPHILS 1 % (0-4); HOWELL-JOLLY BODIES PRESENT (NONE SEEN); NEUTROPHIL # MANUAL DIFF 8.2 TH/MM3 (1.8-7.7); POLYCHROMASIA 2.9 % (0.0-1.9); POLYS (SEG NEUTROPHILS) 51 % (16-70); SICKLE CELLS 2+ (NORMAL); TARGET CELLS 2+ (NORMAL); WBC DIFF SAMPLE 100
[2017-01-03 09:18] LABS: PLATELET ESTIMATE SMEAR NORMAL (NORMAL); PLATELET MORPHOLOGY NORMAL (NORMAL); SCAN/DIFF FINAL DIFF MANUAL
--- NOTE | 2017-01-03 10:30 | HHI.HP ---
[facility] Service Family Medicine Primary Care Physician Unknown Admission Diagnosis Vasooclussive crisis Diagnoses: (1) Vaso-occlusive sickle cell crisis Diagnosis: Principal (2) Fluids/Electrolytes/Nutrition/Prophylaxis Diagnosis: Principal International Travel<30 Days: No Contact w/Intl Traveler<30days: No Known Affected Area: No History of Present Illness Mr Shaw is a 26 year old male with history of sickle cell disease who presented with a 2 day history of extremity and low back pain. He states the pain is localized to his knees bilaterally, elbows bilaterally, and lower back and shoulders bilaterally. He has had multiple vaso-occlusive crises in the past and his has occurred in multiple locations and this feels similar. No chest pain, shortness of breath. No recent illnesses. No sick contacts. He also denies headache, vision changes, dizziness, abdominal pain. He did have Percocet from a previous hospitalization at [facility] and he states taking 12 of these over the day's time prior to presenting to [facility] yesterday. He presented to the [facility] ED on 01/01 for the symptoms, received 2 doses of IV Dilaudid, and was discharged early the morning of admission. He was given prescription for Percocet 5s but he did not fill this. The pain did not subside so he decided to return to the hospital. He states that between his vaso -occlusive crises he doesn't generally take much pain medication so he does not know what his baseline requirements are. In regard to his sickle cell history, patient did not have his first episode of crisis center after high school. He is unsure of the preventative measures that were taken when he was a child, and it is unknown if he has been. He is currently not on any medications aside from occasional pain medications. He denies having history of acute chest, stroke, ACS. He currently has no PCP or animal nutrition teacher with which he follows. He reports feeling improved overnight with the pain meds. However, they only last about 3 hours instead of 4. He declines changes to his pain regimen at this time though a GRAPHICS EDIT TECHNICIAN pump was suggested, toradol or po meds plus iv. His pain is mainly low back and shoulders at this time. He has a fever overnight but no cough or chest sxs. Review of Systems Other Constitutional: DENIES: Fever, Weight loss, Chills, Dizziness, Change in appetite Endocrine: DENIES: Polyuria Eyes: DENIES: Blurred vision, Diplopia, Eye pain Ears, nose, mouth, throat: DENIES: Hearing loss, Vertigo Respiratory: DENIES: Cough, Snoring, Wheezing, Sputum production, Shortness of breath Cardiovascular: DENIES: Chest pain, Syncope Gastrointestinal: DENIES: Abdominal pain, Black stools, Bloody stools, Constipation, Diarrhea, Nausea, Vomiting Genitourinary: DENIES: Urinary frequency, Urgency, Hematuria, Dysuria Musculoskeletal: COMPLAINS OF: Joint pain (knees, elbows, lower back), Back pain, DENIES: Stiffness Integumentary: DENIES: Pruritus, Rash Neurologic: DENIES: Abnormal gait, Headache, Localized weakness Psychiatric: DENIES: Anxiety, Mood changes, Depression Past Family Social History Past Medical History Sickle Cell Disease Past Surgical History Cholecystectomy age 12 Still has his spleen Allergies: Coded Allergies: No Known Allergies (Verified , 01/02/17) Family History Maternal Cousin with SSD Social History Cigarettes: never Alcohol: occasional Illicit: marijuana Lives with mom Physical Exam Vital Signs Vital Signs Date Time Temp Pulse Resp B/P Pulse Ox O2 Delivery O2 Flow Rate FiO2 01/03/17 08:00 99.8 105 16 144/65 99 01/03/17 05:00 99.5 79 16 122/55 99 01/03/17 03:54 96 21 01/03/17 00:17 107 01/03/17 00:00 102.3 108 18 108/53 96 01/02/17 23:28 161 01/02/17 20:00 102.1 98 16 117/58 94 01/02/17 20:00 100 01/02/17 18:00 92 21 01/02/17 16:00 100.0 88 18 139/55 98 01/02/17 11:38 93 14 118/62 99 Nasal Cannula 2 01/02/17 11:02 93 16 104/51 100 Nasal Cannula 2 01/02/17 10:37 97.8 89 16 113/57 99 Physical Exam GENERAL: Thin -Scottish male lying in bed with eyes closed, not moving in position. He is alert but appears to be in some pain. SKIN: Warm and dry. No rashes or bruises. HEAD: Atraumatic. Normocephalic. EYES: PERRL. scleral icterus noted, mild. No injection or drainage. Conjunctival pallor noted. ENT: No nasal bleeding or discharge. Mucous membranes pink and moist. NECK: Trachea midline. No JVD. CARDIOVASCULAR: Regular rate and rhythm. NICKI noted throughout cardiac field. 2+ pulses noted in the upper extremities bilaterally. RESPIRATORY: No accessory muscle use. Clear to auscultation. No wheezes, rales, or rhonchi noted. GASTROINTESTINAL: Abdomen soft, think, non-tender, nondistended. Hepatic and splenic margins not palpable. : Hemoconcentrated urine. MUSCULOSKELETAL: Joint exam is unremarkable with no evidence of swelling, erythema, warmth, or pain. Extremities without clubbing, cyanosis, or edema. No obvious deformities. NEUROLOGICAL: Awake and alert. No obvious cranial nerve deficits. Motor grossly within normal limits. Five out of 5 muscle strength in the arms and legs. Normal speech. PSYCHIATRIC: Appropriate mood and affect; insight and judgment normal. Laboratory Laboratory Tests Test 01/02/17 01/02/17 01/03/17 11:00 21:50 06:13 White Blood Count 14.9 12.8 Red Blood Count 2.82 2.60 Hemoglobin 7.8 7.1 Hematocrit 22.8 21.5 Mean Corpuscular Volume 80.7 82.5 Mean Corpuscular Hemoglobin 27.7 27.2 Mean Corpuscular Hemoglobin 34.3 32.9 Concent Red Cell Distribution Width 21.8 20.2 Platelet Count 311 263 Mean Platelet Volume 9.6 9.6 Neutrophils (%) (Auto) 72.2 66.9 Lymphocytes (%) (Auto) 15.9 17.2 Monocytes (%) (Auto) 10.8 14.8 Eosinophils (%) (Auto) 0.5 0.5 Basophils (%) (Auto) 0.6 0.6 Neutrophils # (Auto) 10.7 8.5 Lymphocytes # (Auto) 2.4 2.2 Monocytes # (Auto) 1.6 1.9 Eosinophils # (Auto) 0.1 0.1 Basophils # (Auto) 0.1 0.1 CBC Comment AUTO DIFF AUTO DIFF Differential Total Cells 100 100 Counted Neutrophils % (Manual) 59 51 Band Neutrophils % 3 13 Lymphocytes % 29 25 Monocytes % 8 10 Eosinophils % 1 1 Neutrophils # (Manual) 9.2 8.2 Nucleated Red Blood Cells 9 3 Differential Comment FINAL DIFF FINAL DIFF MANUAL MANUAL Platelet Estimate NORMAL NORMAL Platelet Morphology Comment NORMAL NORMAL Polychromasia 2.4 2.9 Sickle Cells 1+ 2+ Target Cells 2+ 2+ Red Cell Morphology Comment Reticulocyte Count 12.5 14.8 Absolute Reticulocyte Count 351.5 377.9 Sodium Level 138 141 Potassium Level 3.7 3.4 Chloride Level 105 106 Carbon Dioxide Level 24.4 27.0 Anion Gap 9 8 Blood Urea Nitrogen 5 5 Creatinine 0.64 0.58 Estimat Glomerular Filtration 182 204 Rate Random Glucose 101 104 Calcium Level 8.6 8.4 Total Bilirubin 5.1 Direct Bilirubin 0.8 Indirect Bilirubin 4.3 Aspartate Amino Transf 91 (AST/SGOT) Alanine Aminotransferase 80 (ALT/SGPT) Alkaline Phosphatase 114 Total Protein 7.2 Albumin 3.6 25-Hydroxy Vitamin D Total 5.9 Urine Color YELLOW Urine Turbidity CLEAR Urine pH 7.0 Urine Specific [place] 1.005 Urine Protein NEG Urine Glucose (UA) NEG Urine Ketones NEG Urine Occult Blood NEG Urine Nitrite NEG Urine Bilirubin NEG Urine Urobilinogen 2.0 Urine Leukocyte Esterase NEG Urine WBC LESS THAN 1 Microscopic Urinalysis Comment CULT NOT INDICATED Street-[place] Bodies PRESENT Date/Time Procedure Status Source Growth 01/02/17 22:30 Aerobic Blood Culture Received Blood Peripheral Pending 01/02/17 22:30 Anaerobic Blood Culture Received Blood Peripheral Pending 01/02/17 21:50 Urine Culture Received Urine Clean Catch Pending Result Diagram: 01/03/17 0613 01/03/17 0613 Imaging CXR performed 01/02 at 0029 - normal examination Assessment and Plan Assessment and Plan 26-year-old male with a history of sickle cell anemia who presents with acute vaso-occlusive crisis without evidence of stroke, ACS, or acute chest syndrome. Admit to inpatient for further monitoring and pain control. Problem List: (1) Vaso-occlusive sickle cell crisis Status: Acute Plan: Patient presents with acute vaso-occlusive crisis. His reticulocyte count is noted to be greater than 15, and it is increased from evaluation yesterday. His H&H is 7.8/22.8. On review of EMR, it appears patient's baseline is approximately 78. Highest hemoglobin on record is 9.4 after transfusion. CXR performed early this morning was unremarkable. CBC to be at approximately patient's baseline. There is no evidence of infection on patient's history or physical exam. Plan: * Aggressive IV fluid resuscitation is indicated-->isotonic IV fluids at 100 mL/ h, may decrease in the next 24h or as needed. * Monitor H&H. Avoid transfusions given increased mortality with these * Pain management with Dilaudid 0.5 mg IV q4h for pain 1-5, Dilaudid 1 mg IV q4h for pain 6-10. We'll give laxative and antiemetics to manage side effects. discussed pain options for him and will respect his wishes to continue current pain regimen * Hematology consult. Patient has not had any outpatient follow-up in adulthood , likely would benefit from vaccinations and Hydroxyurea * Case management consult to assist in setting up with PCP * Hepatic function panel ordered given patient has mild jaundice (2) Fluids/Electrolytes/Nutrition/Prophylaxis Status: Acute Plan: Fluids: NS @ 100ml/hr Electrolytes: monitor and replete as needed Nutrition: Regular diet DVT Prophylaxis: Heparin 5000U subQ q8hr/bilateral SCDs GI Prophylaxis: None indicated Physician Certification 2 Midnight Certification Type: Admission for Inpatient Services Order for Inpatient Services The services are ordered in accordance with Medicare regulations or non- Medicare payer requirements, as applicable. In the case of services not specified as inpatient-only, they are appropriately provided as inpatient services in accordance with the 2-midnight benchmark. Estimated LOS (days): 3 3 days is the estimated time the patient will need to remain in the hospital, assuming treatment plan goals are met and no additional complications. Post-Hospital Plan: Home Cheyenne Hinson MD January 03, 2017 10:30
[2017-01-03] MEDS: CHOLECALCIFEROL (VIT D3) 5000 UNIT CAP PO SCH (18:10)
[2017-01-03] MEDS: SODIUM CHLORIDE 0.9% FLUSH 10 ML FLUSH IV FLUSH PRN (23:36)
[2017-01-04] VITALS (10 sets, daily range): BP systolic 105–129; BP diastolic 52–57; PULSE 60–88; RESP 16–20; TEMP 96.7–99.8; O2SAT 95–99
[2017-01-04] MEDS: HYDROmorphone HCL PF 1 MG/ML VIAL IV PUSH PRN ×7 (02:35→21:18)
[2017-01-04] MEDS: SODIUM CHLOR 0.9% 1000 ML INJ 1,000 ML IV SCH ×2 (02:38→23:42)
[2017-01-04] MEDS: HEPARIN SODIUM - SQ 10,000 UNITS/ML VIAL SQ SCH ×3 (05:37→19:46)
[2017-01-04 07:59] LABS: AUTOMATED NEUTROPHIL # 5.2 TH/MM3 (1.8-7.7); BASOPHIL # 0.1 TH/MM3 (0-0.2); BASOPHIL % 0.9 % (0.0-2.0); EOSINOPHIL # 0.3 TH/MM3 (0-0.4); LYMPH % 39.9 % (9.0-44.0); LYMPHOCYTE # 4.5 TH/MM3 (1.0-4.8); MEAN CELL VOLUME 82.7 FL (80.0-100.0); MEAN CORPUSCULAR HEMOGLOBIN 26.8 PG (27.0-34.0); MEAN CORPUSCULAR HGB CONC 32.4 % (32.0-36.0); MONO % 10.2 % (0.0-8.0); PLATELET COUNT 245 TH/MM3 (150-450); RED BLOOD COUNT 2.42 MIL/MM3 (4.50-5.90); RED CELL DISTRIBUTION WIDTH 18.9 % (11.6-17.2); RETIC % 14.9 % (0.4-3.0); WHITE BLOOD COUNT 11.3 TH/MM3 (4.0-11.0)
[2017-01-04 08:13] LABS: HEMO FLAGS AUTO DIFF; REVIEW FLAG FINAL
[2017-01-04 08:31] LABS: ALKALINE PHOSPHATASE 137 U/L (45-117); ALT (GPT) 90 U/L (12-78); ANION GAP 7 MEQ/L (5-15); AST (GOT) 69 U/L (15-37); BICARBONATE 26.7 MEQ/L (21.0-32.0); BLOOD UREA NITROGEN 3 MG/DL (7-18); CHLORIDE 106 MEQ/L (98-107); GLOMERULAR FILTRATION RATE 266 ML/MIN (>89); POTASSIUM 3.4 MEQ/L (3.5-5.1); SODIUM (NA) 140 MEQ/L (136-145); TOTAL BILIRUBIN ADULT 3.1 MG/DL (0.2-1.0)
[2017-01-04] MEDS ORDERED: ACETAMINOPHEN 325 MG TAB PO PRN (09:00)
[2017-01-04] MEDS ORDERED: diphenhydrAMINE HCL 25 MG CAP PO PRN (09:00)
[2017-01-04] MEDS ORDERED: SODIUM CHLOR 0.9% 250 ML INJ 250 ML IV ONE (09:00)
[2017-01-04] MEDS: MULTIVITAMIN TAB PO SCH (09:12)
[2017-01-04] MEDS: DOCUSATE SODIUM 100 MG CAP PO SCH ×2 (09:13→19:46)
[2017-01-04] MEDS: FOLIC ACID 1 MG TAB PO SCH (09:13)
[2017-01-04] MEDS: CHOLECALCIFEROL (VIT D3) 5000 UNIT CAP PO SCH (09:13)
[2017-01-04] MEDS: SODIUM CHLORIDE 0.9% FLUSH 10 ML FLUSH IV FLUSH SCH ×2 (09:14→19:48)
[2017-01-04] MEDS: POTASSIUM CHLORIDE 20 MEQ CONTROLLED RELEASE TAB PO ONE ×2 (09:17→09:19)
[2017-01-04] MEDS ORDERED: ACETAMINOPHEN/HYDROcodone 325 MG/5 MG TAB PO PRN (09:45)
[2017-01-04 09:50] LABS: SICKLE CELLS 1+ (NORMAL); TARGET CELLS 2+ (NORMAL)
--- NOTE | 2017-01-04 09:50 | HHI.FPPN ---
Subjective Remarks Patient seen and examined this morning. Vital signs stable. Still complaining of pain. Able to sleep after pain medication, now every 3 hours. Appetite is good. Review of systems: Positive: pain Negative: headache, shortness of breath, chest pain, nausea, diarrhea (Crispin Elena MD R2) Objective Vitals Vital Signs Date Time Temp Pulse Resp B/P Pulse Ox O2 Delivery O2 Flow Rate FiO2 01/04/17 08:14 84 01/04/17 07:50 99.2 86 20 112/56 96 01/04/17 07:22 98 21 01/04/17 04:00 98.6 69 16 118/52 98 01/04/17 00:30 99.8 88 16 112/55 96 01/03/17 20:05 95 01/03/17 20:00 99.5 74 16 113/53 99 01/03/17 17:25 99 21 01/03/17 16:00 98.8 98 18 125/59 99 01/03/17 12:00 99.5 96 18 126/58 97 I/O 01/03/17 01/03/17 01/03/17 01/04/17 01/04/17 01/04/17 07:00 15:00 23:00 07:00 15:00 23:00 Intake Total 1305 ml 480 ml 2164 ml 1370 ml Output Total 1650 ml 1925 ml 800 ml 1300 ml Balance -345 ml -1445 ml 1364 ml 70 ml Intake Oral 480 ml 480 ml 480 ml 580 ml IV Total 825 ml 1684 ml 790 ml Output Urine Total 1650 ml 1925 ml 800 ml 1300 ml (Crispin Elena MD R2) Result Diagram: 01/04/1762601/04/17626 Objective Remarks GENERAL: Thin -Honduran male lying in bed with eyes closed, not moving. He is alert but appears to be in pain. SKIN: Warm and dry. No rashes or bruises. HEAD: Atraumatic. Normocephalic. EYES: PERRL. scleral icterus noted, mild. No injection or drainage. Conjunctival pallor noted. ENT: No nasal bleeding or discharge. Mucous membranes pink and moist. NECK: Trachea midline. No JVD. CARDIOVASCULAR: Regular rate and rhythm. NICKI noted throughout cardiac field. 2+ pulses noted in the upper extremities bilaterally. RESPIRATORY: No accessory muscle use. Clear to auscultation. No wheezes, rales, or rhonchi noted. GASTROINTESTINAL: Abdomen soft, think, non-tender, nondistended. Hepatic and splenic margins not palpable. : Hemoconcentrated urine. MUSCULOSKELETAL: Joint exam is unremarkable with no evidence of swelling, erythema, warmth, or pain. Extremities without clubbing, cyanosis, or edema. No obvious deformities. NEUROLOGICAL: Awake and alert. No obvious cranial nerve deficits. Motor grossly within normal limits. Five out of 5 muscle strength in the arms and legs. Normal speech. PSYCHIATRIC: Appropriate mood and affect; insight and judgment normal. Medications and IVs Current Medications Medications (Trade) Dose Ordered Sig/Jorge Luis Route Start Time Stop Time Status Last Admin (NS 1000 ml Inj) 1,000 ml @ 100 mls/hr Q10H IV 01/02/17 13:00 01/04/17 02:38 (NS Flush) 2 ml UNSCH PRN IV FLUSH 01/02/17 13:00 01/03/17 23:36 (NS Flush) 2 ml BID IV FLUSH 01/02/17 21:00 01/03/17 08:58 (Dilaudid Pf Inj) 0.5 mg Q4H PRN IV 01/02/17 13:00 01/03/17 12:42 (Zofran Inj) 4 mg Q6H PRN IV 01/02/17 13:00 (Tylenol) 650 mg Q4H PRN PO 01/02/17 13:00 01/02/17 23:41 (Folate) 1 mg DAILY PO 01/03/17 09:00 01/04/17 09:13 (Theragran) 1 tab DAILY PO 01/03/17 09:00 01/04/17 09:12 (Colace) 100 mg BID PO 01/02/17 21:00 01/04/17 09:13 (Heparin Inj) 5,000 units Q8H SQ 01/02/17 13:00 01/04/17 05:37 (Vitamin D3) 5,000 units DAILY PO 01/03/17 11:00 01/04/17 09:13 Hydromorphone HCl 1 mg 1 mg Q3HR PRN IV PUSH 01/03/17 20:23 01/04/17 09:26 (NS 250 ml Inj) 250 ml @ 15 mls/hr ONCE ONCE IV 01/04/17 09:00 01/05/17 01:39 (Tylenol) 650 mg Q4H PRN PO 01/04/17 09:00 01/04/17 13:01 (Benadryl) 25 mg Q4H PRN PO 01/04/17 09:00 01/04/17 13:01 (Crispin Elena MD R2) A/P Assessment and Plan 26-year-old male with a history of sickle cell anemia who presents with acute vaso-occlusive crisis without evidence of stroke, ACS, or acute chest syndrome. Admit to inpatient for further monitoring and pain control. Discharge Planning Anticipate discharge in next 1-2 days (Crispin Elena MD R2) Attending Attestation Patient seen and examined. Case reviewed and discussed with the resident team. Agree with plan of care as discussed with me and documented in the resident note. improved today with more energy and less pain overall (Cheyenne Hinson MD) Problem List: (1) Vaso-occlusive sickle cell crisis Status: Acute Plan: Patient presents with acute vaso-occlusive crisis. His reticulocyte count is noted to be greater than 15, and it is increased from evaluation yesterday. His H&H is 7.8/22.8. On review of EMR, it appears patient's baseline is approximately 78. Highest hemoglobin on record is 9.4 after transfusion. CXR performed early this morning was unremarkable. CBC to be at approximately patient's baseline. There is no evidence of infection on patient's history or physical exam. Plan: * Aggressive IV fluid resuscitation is indicated-->isotonic IV fluids at 100 mL/ h, may decrease in the next 24h or as needed. * Monitor H&H. Avoid transfusions given increased mortality with these * Pain management with [place] 5/325 for pain 1-5, [place] 10/325 for pain 6-10, Dilaudid 1mg q3 for breakthrough pain. * Hematology consult. Patient has not had any outpatient follow-up in adulthood , likely would benefit from vaccinations and Hydroxyurea * Case management consult to assist in setting up with PCP * Hepatic function panel ordered given patient has mild jaundice (2) Fluids/Electrolytes/Nutrition/Prophylaxis Status: Acute Plan: Fluids: NS @ 100ml/hr Electrolytes: monitor and replete as needed Nutrition: Regular diet DVT Prophylaxis: Heparin 5000U subQ q8hr/bilateral SCDs GI Prophylaxis: None indicated (Crispin Elena MD R2) Crispin Elena MD R2 January 04, 2017 09:50 Cheyenne Hinson MD January 05, 2017 13:03
[2017-01-04 09:51] LABS: PLATELET ESTIMATE SMEAR NORMAL (NORMAL); PLATELET MORPHOLOGY ENLARGED (NORMAL); SCAN/DIFF AUTO DIFF CONFIRMED
[2017-01-04] MEDS ORDERED: FOLI1TAB4 PO (11:23)
[2017-01-04] MEDS ORDERED: THERTAB15 PO (11:23)
[2017-01-04] MEDS ORDERED: HYDR-3516 PO (11:23)
--- NOTE | 2017-01-04 11:24 | HHI.DCPOC ---
Discharge Care Plan Diagnosis: (1) Sickle cell crisis (2) Vaso-occlusive sickle cell crisis (3) Anemia Goals to Promote Your Health * To prevent worsening of your condition and complications * To maintain your health at the optimal level Follow up with Hematology Directions to Meet Your Goals Take your medications as prescribed Follow your dietary instruction Follow activity as directed Keep your appointments as scheduled Take your immunizations and boosters as scheduled If your symptoms worsen call your PCP, if no PCP go to Urgent Care Center or Emergency Room Smoking is Dangerous to Your Health. Avoid second hand smoke Call the 24-hour hour crisis hotline for domestic abuse at Crispin Elena MD R2 January 04, 2017 11:24
[2017-01-04] MEDS: ACETAMINOPHEN/HYDROcodone 325 MG/10 MG TAB PO PRN ×4 (11:43→23:47)
--- NOTE | 2017-01-04 13:35 | PD.ONC.PN ---
Subjective Subjective Remarks Tmax 99.8 overnight. Pt resting in bed in no distress. He is currently getting his PRBC infusion. He continues to have pain. Denies worsening pain or SOB. Objective Data Date Time Temp Pulse Resp B/P Pulse Ox O2 Delivery O2 Flow Rate FiO2 01/04/17 12:55 96.9 60 16 110/53 95 01/04/17 08:14 84 01/04/17 07:50 99.2 86 20 112/56 96 01/04/17 07:22 98 21 01/04/17 04:00 98.6 69 16 118/52 98 01/04/17 00:30 99.8 88 16 112/55 96 01/03/17 20:05 95 01/03/17 20:00 99.5 74 16 113/53 99 01/03/17 17:25 99 21 01/03/17 16:00 98.8 98 18 125/59 99 01/04/17 01/04/17 01/04/17 07:00 15:00 23:00 Intake Total 1370 ml Output Total 1300 ml Balance 70 ml Result Diagram: 01/04/17 0627 01/04/1727 Laboratory Results Laboratory Tests Test 01/04/17 01/04/17 06:27 10:53 White Blood Count 11.3 TH/MM3 Red Blood Count 2.42 MIL/MM3 Hemoglobin 6.5 GM/DL Hematocrit 20.0 % Mean Corpuscular Volume 82.7 FL Mean Corpuscular Hemoglobin 26.8 PG Mean Corpuscular Hemoglobin 32.4 % Concent Red Cell Distribution Width 18.9 % Platelet Count 245 TH/MM3 Mean Platelet Volume 10.2 FL Neutrophils (%) (Auto) 46.0 % Lymphocytes (%) (Auto) 39.9 % Monocytes (%) (Auto) 10.2 % Eosinophils (%) (Auto) 3.0 % Basophils (%) (Auto) 0.9 % Neutrophils # (Auto) 5.2 TH/MM3 Lymphocytes # (Auto) 4.5 TH/MM3 Monocytes # (Auto) 1.1 TH/MM3 Eosinophils # (Auto) 0.3 TH/MM3 Basophils # (Auto) 0.1 TH/MM3 CBC Comment AUTO DIFF Differential Comment AUTO DIFF CONFIRMED Platelet Estimate NORMAL Platelet Morphology Comment ENLARGED Polychromasia 2.0 % Sickle Cells 1+ Target Cells 2+ Red Cell Morphology Comment Reticulocyte Count 14.9 % Absolute Reticulocyte Count 359.9 MIL/L Sodium Level 140 MEQ/L Potassium Level 3.4 MEQ/L Chloride Level 106 MEQ/L Carbon Dioxide Level 26.7 MEQ/L Anion Gap 7 MEQ/L Blood Urea Nitrogen 3 MG/DL Creatinine 0.46 MG/DL Estimat Glomerular Filtration 266 ML/MIN Rate Random Glucose 67 MG/DL Calcium Level 8.4 MG/DL Total Bilirubin 3.1 MG/DL Aspartate Amino Transf 69 U/L (AST/SGOT) Alanine Aminotransferase 90 U/L (ALT/SGPT) Alkaline Phosphatase 137 U/L Total Protein 6.6 GM/DL Albumin 3.0 GM/DL Blood Type O POSITIVE Antibody Screen NEGATIVE Crossmatch Leukocyte-Reduced Red Blood Cells Blood Bank Comment Culture Results Microbiology Date/Time Procedure Status Source Growth 01/02/17 21:50 Urine Culture - Final Complete Urine Clean Catch 10-50,000 CFU/ML MIXED GRAM POSITIVE ... 01/02/17 22:25 Aerobic Blood Culture - Preliminary Resulted Blood Peripheral NO GROWTH IN 2 DAYS 01/02/17 22:25 Anaerobic Blood Culture - Preliminary Resulted Blood Peripheral NO GROWTH IN 2 DAYS 01/02/17 22:30 Aerobic Blood Culture - Preliminary Resulted Blood Peripheral NO GROWTH IN 2 DAYS 01/02/17 22:30 Anaerobic Blood Culture - Preliminary Resulted Blood Peripheral NO GROWTH IN 2 DAYS Administered Medications Medications (Trade) Dose Ordered Sig/Jorge Luis Route PRN Reason Start Time Stop Time Status Last Admin Dose Admin Sodium Chloride (NS 1000 ml Inj) 1,000 ml @ 100 mls/hr Q10H IV 01/02/17 13:00 01/04/17 02:38 Sodium Chloride (NS Flush) 2 ml UNSCH PRN IV FLUSH FLUSH AFTER USING IV ACCESS 01/02/17 13:00 01/03/17 23:36 Sodium Chloride (NS Flush) 2 ml BID IV FLUSH 01/02/17 21:00 01/03/17 08:58 Acetaminophen (Tylenol) 650 mg Q4H PRN PO FEVER 01/02/17 13:00 01/02/17 23:41 Folic Acid (Folate) 1 mg DAILY PO 01/03/17 09:00 01/04/17 09:13 Multivitamins (Theragran) 1 tab DAILY PO 01/03/17 09:00 01/04/17 09:12 Docusate Sodium (Colace) 100 mg BID PO 01/02/17 21:00 01/04/17 09:13 Heparin Sodium (Porcine) (Heparin Inj) 5,000 units Q8H SQ 01/02/17 13:00 01/04/17 12:49 Cholecalciferol (Vitamin D3) 5,000 units DAILY PO 01/03/17 11:00 01/04/17 09:13 Hydromorphone HCl (Dilaudid Pf Inj) 1 mg Q3HR PRN IV PUSH BREAKTHROUGH PAIN 01/03/17 20:23 01/04/17 12:48 Acetaminophen/ Hydrocodone Bitart ([place] 10-325 Mg) 1 tab Q4H PRN PO PAIN SCALE 6 TO 10 01/04/17 09:45 01/04/17 11:43 Objective Remarks GENERAL: Young male, resting in bed getting PRBC infusion. SKIN: Warm and dry. HEAD: Normocephalic. EYES: No injection or drainage. NECK: Supple, trachea midline. No JVD or lymphadenopathy. CARDIOVASCULAR: Regular rate and rhythm without murmurs. RESPIRATORY: Breath sounds equal bilaterally. No accessory muscle use. GASTROINTESTINAL: Abdomen soft, non-tender, nondistended. EXTREMITIES: No cyanosis, or edema. NEUROLOGICAL: Awakens easily. Moving all extremities. Normal speech. Assessment/Plan Problem List: (1) Vaso-occlusive sickle cell crisis Status: Acute Plan: 01/04/17: Will give 1 unit PRBC's today for Hgb of 6.5. No SOB. Will continue with IVF. BC show no growth. 01/03/17: Continue IVF, pain medications. Await results of blood cultures, UA and Hgb electrophoresis. Pain is overall slightly improved. Plan to transfuse for Hgb less than 7. Assessment 26 y/o male with history of sickle cell disease presents to the ER with c/o acute vasoocclusive pain crises. Attending Statement wants to go home Pain after PRBC continue dilaudid, hydration and a/b HB electro pending The exam, history, and the medical decision-making described in the above note were completed with the assistance of the mid-level provider. I reviewed and agree with the findings presented. I attest that I had a [id number] encounter with the patient on the same day, and personally performed and documented my assessment and findings in the medical record. Lisa Pickard January 04, 2017 13:35 Dominic Land MD January 04, 2017 22:17
[2017-01-05] VITALS: BP_SYST 110; BP_SYST 171; BP_DIAS 55; BP_DIAS 90; PULSE 71; PULSE 93; RESP 16; RESP 18; TEMP 98.1; TEMP 99; O2SAT 96; O2SAT 99
[2017-01-05] MEDS: HYDROmorphone HCL PF 1 MG/ML VIAL IV PUSH PRN ×3 (01:19→08:50)
[2017-01-05] MEDS: ACETAMINOPHEN/HYDROcodone 325 MG/10 MG TAB PO PRN ×2 (03:44→07:46)
[2017-01-05 04:00] VITALS: BP 108/45; PULSE 61; RESP 16; TEMP 97.4; O2SAT 98
[2017-01-05] MEDS: HEPARIN SODIUM - SQ 10,000 UNITS/ML VIAL SQ SCH (05:00)
[2017-01-05 07:15] VITALS: BP 110/56; PULSE 53; RESP 20; TEMP 96.6; O2SAT 99
[2017-01-05 08:28] VITALS: PULSE 74
[2017-01-05] MEDS: FOLIC ACID 1 MG TAB PO SCH (08:49)
[2017-01-05] MEDS: SODIUM CHLORIDE 0.9% FLUSH 10 ML FLUSH IV FLUSH SCH (08:49)
[2017-01-05] MEDS: CHOLECALCIFEROL (VIT D3) 5000 UNIT CAP PO SCH (08:49)
[2017-01-05] MEDS: MULTIVITAMIN TAB PO SCH (08:49)
[2017-01-05] MEDS: DOCUSATE SODIUM 100 MG CAP PO SCH (08:51)
[2017-01-05 09:16] LABS: HEMATOCRIT 23.2 % (39.0-51.0); MEAN CELL VOLUME 81.9 FL (80.0-100.0); MEAN CORPUSCULAR HEMOGLOBIN 28.1 PG (27.0-34.0); MEAN CORPUSCULAR HGB CONC 34.3 % (32.0-36.0); PLATELET COUNT 265 TH/MM3 (150-450); RED BLOOD COUNT 2.83 MIL/MM3 (4.50-5.90); RED CELL DISTRIBUTION WIDTH 18.1 % (11.6-17.2); REVIEW FLAG FINAL
--- NOTE | 2017-01-05 09:25 | HHI.FPPN ---
Subjective Remarks Patient was seen and examined this morning. He says he wants to go home today. He denies any new fevers, chills, nausea, vomiting, chest pain, shortness of breath, joint pains. He is eating without difficulty. No issues voiding. ( Terri Wilson MD R1) Objective Vitals Vital Signs Date Time Temp Pulse Resp B/P Pulse Ox O2 Delivery O2 Flow Rate FiO2 01/05/17 07:15 96.6 53 20 110/56 99 01/05/17 04:00 97.4 61 16 108/45 98 01/05/17 00:00 98.1 71 16 110/55 99 01/04/17 20:09 72 01/04/17 20:00 98.1 69 16 129/57 98 01/04/17 15:50 96.7 62 20 105/55 99 01/04/17 12:55 96.9 60 16 110/53 95 01/04/17 11:50 97.7 76 20 115/56 98 I/O 01/04/17 01/04/17 01/04/17 01/05/17 01/05/17 01/05/17 06:59 14:59 22:59 06:59 14:59 22:59 Intake Total 1370 ml 947 ml 720 ml 1841 ml Output Total 1300 ml 1000 ml Balance 70 ml -53 ml 720 ml 1841 ml Intake Oral 580 ml 240 ml 720 ml 480 ml IV Total 790 ml 707 ml 1361 ml Output Urine Total 1300 ml 1000 ml # Voids 3 2 # Bowel Movements 0 (Terri Wilson MD R1) Result Diagram: 01/05/17 0734 01/04/17 0627 Objective Remarks GENERAL: Thin -Panamanian male lying in bed comfortably. He is in good spirits and joking. SKIN: Warm and dry. No rashes or bruises. HEAD: Atraumatic. Normocephalic. EYES: PERRL. scleral icterus noted, mild. No injection or drainage. Conjunctival pallor noted. ENT: No nasal bleeding or discharge. Mucous membranes pink and moist. NECK: Trachea midline. No JVD. CARDIOVASCULAR: Regular rate and rhythm. NICKI noted throughout cardiac field. 2+ pulses noted in the upper extremities bilaterally. RESPIRATORY: No accessory muscle use. Clear to auscultation. No wheezes, rales, or rhonchi noted. GASTROINTESTINAL: Abdomen soft, think, non-tender, nondistended. Hepatic and splenic margins not palpable. : Patient still has dark urine. NS at 100 mL/h noted to be running MUSCULOSKELETAL: Joint exam is unremarkable with no evidence of swelling, erythema, warmth, or pain. Extremities without clubbing, cyanosis, or edema. No obvious deformities. NEUROLOGICAL: Awake and alert. No obvious cranial nerve deficits. Motor grossly within normal limits. Five out of 5 muscle strength in the arms and legs. Normal speech. PSYCHIATRIC: Appropriate mood and affect; insight and judgment normal. Medications and IVs Inpatient Medications Acetaminophen (Tylenol) 650 mg Q4H PRN PO SEE LABEL COMMENTS Last administered on 01/04/17 11:44; Start 01/04/17 at 09:00; Stop 01/04/17 at 13:01; Status DC Acetaminophen/ Hydrocodone Bitart ([place] 5-325 Mg) 1 tab Q4H PRN PO PAIN SCALE 1 TO 5; Start 01/04/17 at 09:45 Acetaminophen/ Hydrocodone Bitart ([place] 10-325 Mg) 1 tab Q4H PRN PO PAIN SCALE 6 TO 10 Last administered on 01/05/17 07:46; Start 01/04/17 at 09:45 Cholecalciferol (Vitamin D3) 5,000 units DAILY PO Last administered on 09:13; Start 01/03/17 at 11:00 Diphenhydramine HCl (Benadryl) 25 mg Q4H PRN PO SEE LABEL COMMENTS Last administered on 01/04/17 11:44; Start 01/04/17 at 09:00; Stop 01/04/17 at 13:01 ; Status DC Docusate Sodium (Colace) 100 mg BID PO Last administered on 01/05/17 08:51; Start 01/02/17 at 21:00 Folic Acid (Folate) 1 mg DAILY PO Last administered on 01/04/17 09:13; Start 01/03/17 at 09:00 Heparin Sodium (Porcine) (Heparin Inj) 5,000 units Q8H SQ Last administered on 01/04/17 19:46; Start 01/02/17 at 13:00 Hydromorphone HCl (Dilaudid Pf Inj) 1 mg Q4H PRN IV PUSH PAIN SCALE 6 TO 10 Last administered on 01/03/17 17:16; Start 01/02/17 at 23:40; Stop 01/03/17 at 20: 24; Status DC Hydromorphone HCl 1 mg 1 mg Q3HR PRN IV PUSH BREAKTHROUGH PAIN Last administered on 01/05/17 08:50; Start 01/03/17 at 20:23 Multivitamins (Theragran) 1 tab DAILY PO Last administered on 01/04/17 09:12; Start 01/03/17 at 09:00 Ondansetron HCl (Zofran Inj) 4 mg Q6H PRN IV NAUSEA; Start 01/02/17 at 13:00 Potassium Chloride (KCl) 20 meq ONCE ONCE PO ; Start 01/04/17 at 09:00; Stop at 09:01; Status DC Sodium Chloride (NS 1000 ml Inj) 1,000 ml @ 100 mls/hr Q10H IV Last administered on 01/05/17 11:15; Start 01/02/17 at 13:00 Sodium Chloride (NS 250 ml Inj) 250 ml @ 15 mls/hr ONCE ONCE IV ; Start at 09:00; Stop 01/05/17 at 01:39; Status DC Sodium Chloride (NS Flush) 2 ml BID IV FLUSH Last administered on 01/03/17 08: 58; Start 01/02/17 at 21:00 (Terri Wilson MD R1) Urinary Catheter: No (Terri Wilson MD R1) Vascular Central Line Catheter: No (Terri Wilson MD R1) A/P Assessment and Plan 26-year-old male with a history of sickle cell anemia who presents with acute vaso-occlusive crisis without evidence of stroke, ACS, or acute chest syndrome. Admitted to inpatient for further monitoring and pain control. Discharge Planning Discharge home today with PO pain medications. He is to follow up with hematology in 1 week. (Terri Wilson MD R1) Attending Attestation Patient seen and examined. Case reviewed and discussed with the resident team. Agree with plan of care as discussed with me and documented in the resident note. agree with D/C as he is active and feeling well. he agrees to follow up with Hematology (Cheyenne Hinson MD) Problem List: (1) Vaso-occlusive sickle cell crisis Status: Acute Plan: Pain is now well controlled and patient wants to go home this morning. His reticulocyte count was stable on evaluation yesterday. His H&H improved to 8 /23.2 this morning after 1U PRBC yesterday. Plan: Discharge home today. He will follow-up with hematology and establish with a PCP within the next 1-2 weeks. Hospital Course: * Patient presented with acute vaso-occlusive crisis. * IVF isotonic at 100 mL/h * Monitor H&H. Avoid transfusions with goal H/H >7. S/p 1 U PRBC on 01/04/17 * Pain management with [place] 5/325 for pain 1-5, [place] 10/325 for pain 6-10, Dilaudid 1mg q3 for breakthrough pain. D/c with [place] 10 prescription * Hematology consulted, recommended conservative mgmt. Patient has not had any outpatient follow-up in adulthood, likely would benefit from vaccinations and Hydroxyurea. * Case management consult to assist in setting up with PCP. * Hepatic function panel ordered given patient has mild jaundice. * On review of EMR, it appears patient's baseline is approximately 78. Highest hemoglobin on record is 9.4 after transfusion. * CXR performed 01/02 was unremarkable. * CBC noted initially to be at approximately patient's baseline. * There is no evidence of infection on patient's history or physical exam. (2) Fluids/Electrolytes/Nutrition/Prophylaxis Status: Acute Plan: Fluids: NS @ 100ml/hr Electrolytes: monitor and replete as needed Nutrition: Regular diet DVT Prophylaxis: Heparin 5000U subQ q8hr/bilateral SCDs GI Prophylaxis: None indicated (Terri Wilson MD R1) Terri Wilson MD R1 January 05, 2017 09:25 Cheyenne Hinson MD January 05, 2017 13:06
[2017-01-05 09:42] LABS: BICARBONATE 27.6 MEQ/L (21.0-32.0); POTASSIUM 3.4 MEQ/L (3.5-5.1)
[2017-01-05] MEDS: SODIUM CHLOR 0.9% 1000 ML INJ 1,000 ML IV SCH (11:15)
[2017-01-05] MEDS ORDERED: PERC10TA27 PO (11:21)
[2017-01-05] MEDS ORDERED: HYDR-3583 PO (11:22)
--- NOTE | 2017-01-05 11:43 | PD.PN.STU ---
Subjective Remarks Patient seen and examined today. Vital signs stable. No new complaints. Pain better than yesterday. Able to sleep. Eating regular diet. Desires to go home today. ROS: Positive: None Negative: headache, chest pain, shortness of breath, cough, nausea, diarrhea Objective Vitals Vital Signs Date Time Temp Pulse Resp B/P Pulse Ox O2 Delivery O2 Flow Rate FiO2 01/05/17 08:28 74 01/05/17 07:15 96.6 53 20 110/56 99 01/05/17 04:00 97.4 61 16 108/45 98 01/05/17 00:00 98.1 71 16 110/55 99 01/04/17 20:09 72 01/04/17 20:00 98.1 69 16 129/57 98 01/04/17 15:50 96.7 62 20 105/55 99 01/04/17 12:55 96.9 60 16 110/53 95 01/04/17 11:50 97.7 76 20 115/56 98 I/O 01/04/17 01/04/17 01/04/17 01/05/17 01/05/17 01/05/17 06:59 14:59 22:59 06:59 14:59 22:59 Intake Total 1370 ml 947 ml 720 ml 1841 ml Output Total 1300 ml 1000 ml Balance 70 ml -53 ml 720 ml 1841 ml Intake Oral 580 ml 240 ml 720 ml 480 ml IV Total 790 ml 707 ml 1361 ml Output Urine Total 1300 ml 1000 ml # Voids 3 2 # Bowel Movements 0 Result Diagram: 01/05/17 0734 01/05/17 0734 Objective Remarks GENERAL: Thin -Portuguese male lying in bed, appears comfortable. SKIN: Warm and dry. No rashes or bruises. HEAD: Atraumatic. Normocephalic. EYES: PERRL. scleral icterus noted, mild. No injection or drainage. Conjunctival pallor noted. ENT: No nasal bleeding or discharge. Mucous membranes pink and moist. NECK: Trachea midline. No JVD. CARDIOVASCULAR: Regular rate and rhythm. NICKI noted throughout cardiac field. 2+ pulses noted in the upper extremities bilaterally. RESPIRATORY: No accessory muscle use. Clear to auscultation. No wheezes, rales, or rhonchi noted. GASTROINTESTINAL: Abdomen soft, think, non-tender, nondistended. Hepatic and splenic margins not palpable. : Hemoconcentrated urine. MUSCULOSKELETAL: Joint exam is unremarkable with no evidence of swelling, erythema, warmth, or pain. Extremities without clubbing, cyanosis, or edema. No obvious deformities. NEUROLOGICAL: Awake and alert. No obvious cranial nerve deficits. Motor grossly within normal limits. Five out of 5 muscle strength in the arms and legs. Normal speech. PSYCHIATRIC: Appropriate mood and affect; insight and judgment normal. Medications and IVs Current Medications Medications (Trade) Dose Ordered Sig/Jorge Luis Route Start Time Stop Time Status Last Admin (NS 1000 ml Inj) 1,000 ml @ 100 mls/hr Q10H IV 01/02/17 13:00 01/05/17 11:15 (NS Flush) 2 ml UNSCH PRN IV FLUSH 01/02/17 13:00 01/03/17 23:36 (NS Flush) 2 ml BID IV FLUSH 01/02/17 21:00 01/03/17 08:58 (Zofran Inj) 4 mg Q6H PRN IV 01/02/17 13:00 (Tylenol) 650 mg Q4H PRN PO 01/02/17 13:00 01/02/17 23:41 (Folate) 1 mg DAILY PO 01/03/17 09:00 01/04/17 09:13 (Theragran) 1 tab DAILY PO 01/03/17 09:00 01/04/17 09:12 (Colace) 100 mg BID PO 01/02/17 21:00 01/05/17 08:51 (Heparin Inj) 5,000 units Q8H SQ 01/02/17 13:00 01/04/17 19:46 (Vitamin D3) 5,000 units DAILY PO 01/03/17 11:00 01/04/17 09:13 (Dilaudid Pf Inj) 1 mg Q3HR PRN IV PUSH 01/03/17 20:23 01/05/17 08:50 ([place] 5-325 Mg) 1 tab Q4H PRN PO 01/04/17 09:45 ([place] 10-325 Mg) 1 tab Q4H PRN PO 01/04/17 09:45 01/05/17 07:46 A/P Assessment and Plan Patient seen and examined. Case reviewed and discussed with the resident team. Agree with plan of care as discussed with me and documented in the resident note. Sickle Cell Crisis- Pain improving, no longer requiring IV pain medications, taking [place] 10/325 PO as needed for pain Anemia: Improving, last Hemoglobin 8.0 Disharge to home today. Follow up with PCP and Hematology in 1 week. Discharge Planning Home today Senia Lock January 05, 2017 11:43 Cheyenne Hinson MD January 05, 2017 13:05
[2017-01-05 11:52] VITALS: BP 113/53; PULSE 65; RESP 20; TEMP 97.2; O2SAT 100
--- NOTE | 2017-01-05 16:12 | HHI.DS ---
Discharge Summary Admission Date January 02, 2017 at 13:44 Discharge Date: January 05, 2017 Admitting Diagnosis Vasooclussive crisis (1) Vaso-occlusive sickle cell crisis Diagnosis: Principal Plan: Pain is now well controlled and patient wants to go home this morning. His reticulocyte count was stable on evaluation yesterday. His H&H improved to 8 /23.2 this morning after 1U PRBC yesterday. Plan: Discharge home today. He will follow-up with hematology and establish with a PCP within the next 1-2 weeks. Hospital Course: * Patient presented with acute vaso-occlusive crisis. * IVF isotonic at 100 mL/h * Monitor H&H. Avoid transfusions with goal H/H >7. S/p 1 U PRBC on 01/04/17 * Pain management with [facility] 5/325 for pain 1-5, [facility] 10/325 for pain 6-10, Dilaudid 1mg q3 for breakthrough pain. D/c with [facility] 10 prescription * Hematology consulted, recommended conservative mgmt. Patient has not had any outpatient follow-up in adulthood, likely would benefit from vaccinations and Hydroxyurea. * Case management consult to assist in setting up with PCP. * Hepatic function panel ordered given patient has mild jaundice. * On review of EMR, it appears patient's baseline is approximately 78. Highest hemoglobin on record is 9.4 after transfusion. * CXR performed 01/02 was unremarkable. * CBC noted initially to be at approximately patient's baseline. * There is no evidence of infection on patient's history or physical exam. (2) Fluids/Electrolytes/Nutrition/Prophylaxis Diagnosis: Secondary Plan: Fluids: NS @ 100ml/hr Electrolytes: monitor and replete as needed Nutrition: Regular diet DVT Prophylaxis: Heparin 5000U subQ q8hr/bilateral SCDs GI Prophylaxis: None indicated Consultants Hematology Brief History Mr Shaw is a 26 year old male with history of sickle cell disease who presented with a 2 day history of extremity and low back pain. He states the pain is localized to his knees bilaterally, elbows bilaterally, and lower back and shoulders bilaterally. He has had multiple vaso-occlusive crises in the past and his has occurred in multiple locations and this feels similar. No chest pain, shortness of breath. No recent illnesses. No sick contacts. He also denies headache, vision changes, dizziness, abdominal pain. He did have Percocet from a previous hospitalization at [facility] and he states taking 12 of these over the day's time prior to presenting to [facility] yesterday. He presented to the [facility] ED on 01/01 for the symptoms, received 2 doses of IV Dilaudid, and was discharged early the morning of admission. He was given prescription for Percocet 5s but he did not fill this. The pain did not subside so he decided to return to the hospital. He states that between his vaso -occlusive crises he doesn't generally take much pain medication so he does not know what his baseline requirements are. In regard to his sickle cell history, patient did not have his first episode of crisis center after high school. He is unsure of the preventative measures that were taken when he was a child, and it is unknown if he has been. He is currently not on any medications aside from occasional pain medications. He denies having history of acute chest, stroke, ACS. 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 He reports feeling improved overnight with the pain meds. However, they only last about 3 hours instead of 4. He declines changes to his pain regimen at this time though a SEE SUPERVISOR pump was suggested, toradol or po meds plus iv. His pain is mainly low back and shoulders at this time. He has a fever overnight but no cough or chest sxs. CBC/BMP: 01/05/17 0734 01/05/17 0734 Significant Findings Laboratory Tests Test 01/03/17 01/04/17 01/05/17 06:13 06:27 07:34 White Blood Count 12.8 TH/MM3 11.3 TH/MM3 (4.0-11.0) (4.0-11.0) Red Blood Count 2.60 MIL/MM3 2.42 MIL/MM3 2.83 MIL/MM3 (4.50-5.90) (4.50-5.90) (4.50-5.90) Hemoglobin 7.1 GM/DL 6.5 GM/DL 8.0 GM/DL (13.0-17.0) (13.0-17.0) (13.0-17.0) Hematocrit 21.5 % 20.0 % 23.2 % (39.0-51.0) (39.0-51.0) (39.0-51.0) Red Cell Distribution Width 20.2 % 18.9 % 18.1 % (11.6-17.2) (11.6-17.2) (11.6-17.2) Monocytes (%) (Auto) 14.8 % 10.2 % (0.0-8.0) (0.0-8.0) Neutrophils # (Auto) 8.5 TH/MM3 (1.8-7.7) Monocytes # (Auto) 1.9 TH/MM3 1.1 TH/MM3 (0-0.9) (0-0.9) Band Neutrophils % 13 % (0-6) Monocytes % 10 % (0-8) Neutrophils # (Manual) 8.2 TH/MM3 (1.8-7.7) Nucleated Red Blood Cells 3 /100 WBC (0-0) Polychromasia 2.9 % (0.0-1.9) 2.0 % (0.0-1.9) Sickle Cells 2+ (NORMAL) 1+ (NORMAL) Target Cells 2+ (NORMAL) 2+ (NORMAL) Reticulocyte Count 14.8 % 14.9 % (0.4-3.0) (0.4-3.0) Absolute Reticulocyte Count 377.9 MIL/L 359.9 MIL/L (20.0-150.0) (20.0-150.0) Potassium Level 3.4 MEQ/L 3.4 MEQ/L 3.4 MEQ/L (3.5-5.1) (3.5-5.1) (3.5-5.1) Blood Urea Nitrogen 5 MG/DL (7-18) 3 MG/DL (7-18) 3 MG/DL (7-18) Creatinine 0.58 MG/DL 0.46 MG/DL 0.56 MG/DL (0.60-1.30) (0.60-1.30) (0.60-1.30) Calcium Level 8.4 MG/DL 8.4 MG/DL (8.5-10.1) (8.5-10.1) Mean Corpuscular Hemoglobin 26.8 PG (27.0-34.0) Platelet Morphology Comment ENLARGED (NORMAL) Random Glucose 67 MG/DL 67 MG/DL (74-106) (74-106) Total Bilirubin 3.1 MG/DL (0.2-1.0) Aspartate Amino Transf 69 U/L (15-37) (AST/SGOT) Alanine Aminotransferase 90 U/L (12-78) (ALT/SGPT) Alkaline Phosphatase 137 U/L (45-117) Albumin 3.0 GM/DL (3.4-5.0) PE at Discharge GENERAL: Thin -[place] male lying in bed comfortably. He is in good spirits and joking. SKIN: Warm and dry. No rashes or bruises. HEAD: Atraumatic. Normocephalic. EYES: PERRL. scleral icterus noted, mild. No injection or drainage. Conjunctival pallor noted. ENT: No nasal bleeding or discharge. Mucous membranes pink and moist. NECK: Trachea midline. No JVD. CARDIOVASCULAR: Regular rate and rhythm. NICKI noted throughout cardiac field. 2+ pulses noted in the upper extremities bilaterally. RESPIRATORY: No accessory muscle use. Clear to auscultation. No wheezes, rales, or rhonchi noted. GASTROINTESTINAL: Abdomen soft, think, non-tender, nondistended. Hepatic and splenic margins not palpable. : Patient still has dark urine. NS at 100 mL/h noted to be running MUSCULOSKELETAL: Joint exam is unremarkable with no evidence of swelling, erythema, warmth, or pain. Extremities without clubbing, cyanosis, or edema. No obvious deformities. NEUROLOGICAL: Awake and alert. No obvious cranial nerve deficits. Motor grossly within normal limits. Five out of 5 muscle strength in the arms and legs. Normal speech. PSYCHIATRIC: Appropriate mood and affect; insight and judgment normal. Hospital Course Patient was admitted for pain management related to vaso-occlusive crisis. Initial workup revealed anemia baseline, elevated reticulocyte count, and pain not well controlled on by mouth medications. He was seen in the ED the night before admission, and he returned to the ED when his pain was not well controlled on the by mouth medications. On admission he was started on IV Dilaudid and transition to by mouth [facility] on day 3. He tolerated this transition well. He was hydrated aggressively with IV and by mouth fluids. He had a temperature on day 2 and blood cultures were collected which showed no growth in 3 days at time of discharge summary drafting. Hematology was consulted given the patient had not establish care as an outpatient and to prevent readmission episodes. Recommendation was to obtain hemoglobin electrophoresis to monitor hemoglobin F levels; he may be optimized on medical management as outpatient possibly to include hydroxyurea pending the results of the hemoglobin electrophoresis study. Patient was discharged on day 4 after optimization of medical management in stable condition. He was given pressures are for [facility] 10/325mg. He is to follow up with hematology in one week. Pt Condition on Discharge: Stable Discharge Disposition: Discharge Home Discharge Instructions DIET: Follow Instructions for: As Tolerated, No Restrictions Activities you can perform: Regular-No Restrictions Follow up Referrals: Hematology - 1 Week with Dominic Land MD PCP Follow-up - 1 Week New Medications: Hydrocodone-Acetaminophen (Hydrocodone-Acetaminophen) 10-325 mg Tab 1 TAB PO Q6H PRN PAIN #30 Ref 0 TAB Folic Acid (Folate) 1 Mg Tab 1 MG PO DAILY #15 TAB Multiple Vitamin (Thera/Beta-Carotene) 1 Tab Tab 1 TAB PO DAILY #30 TAB Continued Medications: Ondansetron Odt (Zofran Odt) 4 Mg Tab 4 MG SL Q6HR PRN Nausea/Vomiting #14 Ref 0 TAB Discontinued Medications: Oxycodone-Acetaminophen (Percocet) 5-325 mg Tab 1-2 TAB PO Q6H PRN PAIN #15 Ref 0 TAB Terri Wilson MD R1 January 05, 2017 16:12
[2017-01-06 19:36] LABS: HEMOGLOBIN A 1.7 % (95.8-98.0); HEMOGLOBIN A2 4.2 % (2.0-3.3); HEMOGLOBIN F 4.4 % (0.0-0.9)
== END 2017-01-05 12:40 | disposition home or self-care (01) | DRG 812 ==
LOC: NEPC 10:36 → NEDA 12:52 → OBSVTOIN 13:44 → NEPFCDU 14:02 → HOCA 19:03
PROVIDERS: ADMIT Family Medicine; ATTEND Family Medicine
PROC: 30253N1 (ICD-10-PCS; principal; 2017-01-02)
DX: D57.00 Hb-SS disease with crisis, unspecified (principal); R17 Unspecified jaundice; D72.829 Elevated white blood cell count, unspecified
CPT/HCPCS: 36430; 71010; 80048; 80053; 80076; 81001; 82306; 83020; 83605; 85007; 85025; 85027; 85044; 85660; 86850; 86900; 86901; 86920; 87040; 87086; 94150; 96361; 96365; 96374; 96375; 96376; J1170; J1644; J7030; P9016

== ENCOUNTER 2017-03-18 23:20 | Emergency (ER) | payer MEDICARE ==
[~2017-03-18] VITALS: Ht 165.1 cm; Wt 50.0 kg
[~2017-03-18 23:20] MED LIST changes: +FOLI1TAB4 PO; +HYDR-3583 PO; -PERC5TAB12 PO; +THERTAB15 PO
[2017-03-18 23:24] VITALS: BP 134/63; PULSE 128; RESP 16; TEMP 98.4
--- NOTE | 2017-03-19 01:41 | PD ---
HPI Chief Complaint: Sickle Cell Time Seen by Provider: 01:34 Travel History International Travel<30 days: No Contact w/Intl Traveler<30days: No Traveled to known affect area: No History of Present Illness HPI 27-year-old male presents to the emergency department for complaint of sickle cell crisis. Patient complains of chest pain and his typical back pain and wrist pain. Patient states he does not take we have chest pain. Symptoms have been present since yesterday at 2 PM. 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 Patient states he gets his medications and management to the emergency department. No report of fever chills cough congestion shortness of breath nausea vomiting abdominal pain flank pain or generalized weakness. Pain is described as 9/10 in intensity. Patient is unable to identify exacerbating or alleviating factors. 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 Anemia: Yes (SICKLE CELL ANEMIA) Blood Disorders: Yes (Sickle Cell Disease) Anxiety: No Depression: No Cancer: No Cardiovascular Problems: No Diabetes: No Endocrine: No Gastrointestinal Disorders: Yes (cholecystectomy) Genitourinary: No Immune Disorder: No Implanted Vascular Access Dvce: No Musculoskeletal: No Neurologic: No Psychiatric: No Reproductive: No Respiratory: No Immunizations Current: Yes Sickle Cell Disease: Yes PNEUMOCCOCAL Vaccine (Year): 2 Past Surgical History Cholecystectomy: Yes Other Surgery: Yes (cholecystectomy ) Social History Alcohol Use: No Tobacco Use: No Substance Use: Yes (MARIJUANA) Allergies-Medications (Allergen,Severity, Reaction): Coded Allergies: No Known Allergies (Verified , 03/19/17) Reported Meds & Prescriptions Reported Meds & Active Scripts Active No Active Prescriptions or Reported Medications Review of Systems Except as stated in HPI: all other systems reviewed are Neg General / Constitutional: No: Fever, Chills HENT: No: Congestion Cardiovascular: Positive: Chest Pain or Discomfort Respiratory: No: Shortness of Breath Gastrointestinal: No: Abdominal Pain Genitourinary: No: Flank Pain Musculoskeletal: Positive: Myalgias, Arthralgias Skin: No Rash Neurologic: No: Weakness Psychiatric: No: Mood Disorder Hematologic/Lymphatic: No: Lymph Node Enlargement Physical Exam Narrative GENERAL: Well-developed well-nourished thin male in no apparent distress no respiratory distress; GCS 15 SKIN: Warm and dry. HEAD: Normocephalic. EYES: No scleral icterus. No injection or drainage. NECK: Supple, trachea midline. No JVD or lymphadenopathy. CARDIOVASCULAR: Regular rate and rhythm without murmurs, gallops, or rubs. chest wall: Nontender to direct palpation RESPIRATORY: Breath sounds equal bilaterally. No accessory muscle use. GASTROINTESTINAL: Abdomen soft, non-tender, nondistended. MUSCULOSKELETAL: No cyanosis, or edema. BACK: Nontender without obvious deformity. No CVA tenderness. Data Data Last Documented VS Vital Signs Date Time Temp Pulse Resp B/P Pulse Ox O2 Delivery O2 Flow Rate FiO2 03/19/17 05:33 70 18 119/57 100 Nasal Cannula 2 03/18/17 23:24 98.4 Orders Complete Blood Count With Diff (03/19/17 01:34) Retic Count (03/19/17 01:34) Iv Access Insert/Monitor (03/19/17 01:34) C-Reactive Protein (Crp) (03/19/17 01:34) Comprehensive Metabolic Panel (03/19/17 01:34) Urinalysis - C+S If Indicated (03/19/17 01:34) Chest, Single Ap (03/19/17 01:34) Ecg Monitoring (03/19/17 01:34) Oximetry (03/19/17 01:34) Ondansetron Inj (Zofran Inj) (03/19/17 01:45) Sodium Chloride 0.9% Flush (Ns Flush) (03/19/17 01:45) Hydromorphone Pf Inj (Dilaudid Pf Inj) (03/19/17 01:45) Diphenhydramine Inj (Benadryl Inj) (03/19/17 01:45) Electrocardiogram (03/19/17 ) Troponin I (03/19/17 01:34) Ckmb (Isoenzyme) Profile (03/19/17 01:34) Magnesium (Mg) (03/19/17 01:34) Sodium Chlor 0.9% 1000 Ml Inj (Ns 1000 M (03/19/17 01:45) Hydromorphone Pf Inj (Dilaudid Pf Inj) (03/19/17 02:30) Aspirin Chew (Aspirin Chew) (03/19/17 09:00) Nitroglycerin Sl (Nitrostat Sl) (03/19/17 03:00) D-Dimer (03/19/17 03:00) Sodium Chlor 0.9% 1000 Ml Inj (Ns 1000 M (03/19/17 03:00) Ct Pulmonary Angiogram (03/19/17 ) Aspirin Chew (Aspirin Chew) (03/19/17 09:00) Aspirin Chew (Aspirin Chew) (03/19/17 04:20) Iohexol 350 Inj (Omnipaque 350 Inj) (03/19/17 04:52) Labs Laboratory Tests Test 03/19/17 03/19/17 03/19/17 01:48 03:28 04:30 White Blood Count 15.8 TH/MM3 Red Blood Count 3.09 MIL/MM3 Hemoglobin 8.9 GM/DL Hematocrit 25.2 % Mean Corpuscular Volume 81.5 FL Mean Corpuscular Hemoglobin 28.8 PG Mean Corpuscular Hemoglobin 35.3 % Concent Red Cell Distribution Width 18.7 % Platelet Count 278 TH/MM3 Mean Platelet Volume 9.8 FL Neutrophils (%) (Auto) 58.3 % Lymphocytes (%) (Auto) 25.0 % Monocytes (%) (Auto) 8.4 % Eosinophils (%) (Auto) 7.2 % Basophils (%) (Auto) 1.1 % Neutrophils # (Auto) 9.2 TH/MM3 Lymphocytes # (Auto) 4.0 TH/MM3 Monocytes # (Auto) 1.3 TH/MM3 Eosinophils # (Auto) 1.1 TH/MM3 Basophils # (Auto) 0.2 TH/MM3 CBC Comment AUTO DIFF Differential Comment Reticulocyte Count 10.2 % Absolute Reticulocyte Count 316.4 MIL/L Sodium Level 143 MEQ/L Potassium Level 3.6 MEQ/L Chloride Level 107 MEQ/L Carbon Dioxide Level 27.4 MEQ/L Anion Gap 9 MEQ/L Blood Urea Nitrogen 4 MG/DL Creatinine 0.68 MG/DL Estimat Glomerular Filtration 168 ML/MIN Rate Random Glucose 73 MG/DL Calcium Level 8.4 MG/DL Magnesium Level 1.7 MG/DL Total Bilirubin 3.0 MG/DL Aspartate Amino Transf 34 U/L (AST/SGOT) Alanine Aminotransferase 24 U/L (ALT/SGPT) Alkaline Phosphatase 91 U/L Total Creatine Kinase 75 U/L Troponin I LESS THAN 0.02 NG/ML C-Reactive Protein 0.30 MG/DL Total Protein 7.3 GM/DL Albumin 3.8 GM/DL D-Dimer Quantitative (PE/DVT) 2.10 MG/L FEU Urine Color YELLOW Urine Turbidity CLEAR Urine pH 6.5 Urine Specific Smilax 1.008 Urine Protein NEG mg/dL Urine Glucose (UA) NEG mg/dL Urine Ketones NEG mg/dL Urine Occult Blood NEG Urine Nitrite NEG Urine Bilirubin NEG Urine Urobilinogen LESS THAN 2.0 MG/DL Urine Leukocyte Esterase NEG Urine WBC 1 /hpf Urine Bacteria RARE /hpf Microscopic Urinalysis Comment CULT NOT INDICATED MDM Medical Decision Making Medical Screen Exam Complete: Yes Emergency Medical Condition: Yes Medical Record Reviewed: Yes Interpretation(s) EKG sinus bradycardia rate 59 LVH by voltage criteria and nonspecific ST-T wave change especially anteriorly biphasic in V3 no acute ST elevation or injury pattern change identified and no comparison EKG available CBC & BMP Diagram 03/19/17 01:48 Vital Signs Date Time Temp Pulse Resp B/P Pulse Ox O2 Delivery O2 Flow Rate FiO2 03/19/17 01:43 98 Room Air 03/18/17 23:24 98.4 128 16 134/[address] pulmonary angiogram: CONCLUSION: No evidence of pulmonary embolism Ashwin Albarran MD on March 19, 2017 at 6:10 Board Certified Radiologist. This report was verified electronically. Differential Diagnosis Chest pain, ACS, sickle cell crisis, vaso-occlusive crisis, PE, atypical chest pain Narrative Course Patient placed on court recording monitor EKG performed which reveals sinus rhythm rate of 60 voltage criterion for LVH nonspecific ST-T changes no acute ST elevation or injury pattern biphasic T-wave in V3 anteriorly no comparison EKG; IV access obtained specimens collected and sent for resulting patient administered 1 L normal saline along with Zofran 4 mg IV Benadryl 25 mg IV and Dilaudid 1 mg IV Patient given additional dose of Dilaudid 1 mg IV It is now 3:00 in the morning and patient states she continues to have discomfort therefore will be administered aspirin 162 mg by mouth one sublingual nitroglycerin 0.4 mg additional IV fluids patient's EKG shows no acute injury pattern change and his first set of cardiac enzymes after having pain for greater than 12 hours shows no elevation of the troponin or the CK. Suspect that this is all related to his sickle cell pain without evidence of ACS or ischemia. We'll also administer additional IV fluids and obtain a d- dimer patient's reticulocyte count is only 10.2% with absolute reticulocyte value 316 these eyes are elevated but not in comparison to recent admission basic was of crisis values. Hemoglobin remained stable at 8.9. Total bilirubin is mildly elevated at 2.0 otherwise other values are normal range. Chest x-ray reveals no lobar infiltrate. Diagnosis Primary Impression: Sickle cell crisis Referrals: [facility] call for appointment Primary Care Physician call for appointment Patient Instructions: Narcotic given in the ED, General Instructions, Sickle Cell Crisis (ED) Additional Instructions: Increase fluid hydration Continue chronic pain medication as presently prescribed Return to the emergency department for any concerns or change in condition Follow-up with primary care provider through [facility] or clinic or through the hematology Department Take acetaminophen as needed for fever 100.4F or greater Med/Other Pt SpecificInfo: Prescription(s) given Scripts Hydrocodone-Acetaminophen (Lortab)10-325 Mg Tab1 Tab PO Q6H PRN (PAIN) #10 TAB Ref 0 Prov:Laure Meyers MD 03/19/17 Disposition: 01 DISCHARGE HOME Condition: Stable Laure Meyers MD Mar 19, 2017 01:41
[2017-03-19 01:43] VITALS: O2SAT 98
[2017-03-19] MEDS ORDERED: diphenhydrAMINE HCL 50 MG/ML VIAL IV ONE (01:45)
[2017-03-19] MEDS ORDERED: SODIUM CHLORIDE 0.9% FLUSH 10 ML FLUSH IVF PRN (01:45)
[2017-03-19] MEDS ORDERED: ONDANSETRON HCL 4 MG/2 ML VIAL IVP ONE (01:45)
[2017-03-19] MEDS ORDERED: SODIUM CHLOR 0.9% 1000 ML INJ 1,000 ML IV ONE ×2 (01:45→03:00)
[2017-03-19] MEDS ORDERED: HYDROmorphone HCL PF 1 MG/ML VIAL IVS ONE (01:45)
[2017-03-19 02:01] LABS: AUTOMATED NEUTROPHIL # 9.2 TH/MM3 (1.8-7.7); BASOPHIL # 0.2 TH/MM3 (0-0.2); BASOPHIL % 1.1 % (0.0-2.0); EOSINOPHIL # 1.1 TH/MM3 (0-0.4); EOSINOPHIL % 7.2 % (0.0-4.0); HEMATOCRIT 25.2 % (39.0-51.0); MEAN CELL VOLUME 81.5 FL (80.0-100.0); MEAN CORPUSCULAR HEMOGLOBIN 28.8 PG (27.0-34.0); MEAN CORPUSCULAR HGB CONC 35.3 % (32.0-36.0); MONO % 8.4 % (0.0-8.0); NEUT % 58.3 % (16.0-70.0); PLATELET COUNT 278 TH/MM3 (150-450); RED BLOOD COUNT 3.09 MIL/MM3 (4.50-5.90); RED CELL DISTRIBUTION WIDTH 18.7 % (11.6-17.2); RETIC % 10.2 % (0.4-3.0); WHITE BLOOD COUNT 15.8 TH/MM3 (4.0-11.0)
[2017-03-19 02:05] VITALS: BP 144/78; PULSE 112; RESP 16
[2017-03-19 02:18] LABS: ALKALINE PHOSPHATASE 91 U/L (45-117); ALT (GPT) 24 U/L (12-78); ANION GAP 9 MEQ/L (5-15); AST (GOT) 34 U/L (15-37); BICARBONATE 27.4 MEQ/L (21.0-32.0); BLOOD UREA NITROGEN 4 MG/DL (7-18); CHLORIDE 107 MEQ/L (98-107); GLOMERULAR FILTRATION RATE 168 ML/MIN (>89); MAGNESIUM 1.7 MG/DL (1.5-2.5); POTASSIUM 3.6 MEQ/L (3.5-5.1); SODIUM (NA) 143 MEQ/L (136-145)
[2017-03-19 02:19] LABS: CREATINE KINASE 75 U/L (39-308)
[2017-03-19 02:25] LABS: HEMO FLAGS AUTO DIFF; REVIEW FLAG AUTO DIFF
[2017-03-19] MEDS ORDERED: HYDROmorphone HCL PF 1 MG/ML VIAL IV PUSH ONE (02:30)
--- NOTE | 2017-03-19 02:54 | RADRPT ---
EXAM DATE/TIME: 03/19/2017 01:46 [facility] COMPARISON: CHEST SINGLE AP, January 02, 2017, 0:29. INDICATIONS : Sickle cell crisis. Chest pain. MEDICAL HISTORY : Sickle Cell disease. SURGICAL HISTORY : None. ENCOUNTER: Initial ACUITY: 2 days PAIN SCORE: 8/10 LOCATION: Bilateral chest FINDINGS: A single view of the chest demonstrates the lungs to be symmetrically aerated without evidence of mas s, infiltrate or effusion. The cardiomediastinal contours are unremarkable. Osseous structures are intact. CONCLUSION: No acute disease. Ashwin Albarran MD on March 19, 2017 at 2:41 Board Certified Radiologist. This report was verified electronically.
[2017-03-19 03:00] VITALS: BP 130/66; PULSE 104; RESP 14
[2017-03-19] MEDS ORDERED: NITROGLYCERIN 0.4 MG SL 25 TABS/BTL SL ONE (03:00)
[2017-03-19 04:05] VITALS: BP 128/60; PULSE 99; RESP 14
[2017-03-19] MEDS ORDERED: ASPIRIN 81 MG CHEW TAB ONE (04:20)
[2017-03-19 04:39] LABS: BACTERIA, URINE RARE /hpf; BLOOD, URINE NEG (NEG); COMMENT (UR) CULT NOT INDICATED; CULTURE IF INDICATED CULT NOT INDICATED; GLUCOSE,URINE NEG (NEG); KETONE, URINE NEG (NEG); NITRITE,URINE NEG (NEG); PH, URINE 6.5 (5.0-8.5); URINE COLOR YELLOW (YELLW/STRAW)
[2017-03-19] MEDS ORDERED: IOHEXOL 350 MG/ML 10 ML VIAL (for RAD DIAG) IV ONE (04:52)
[2017-03-19 05:33] VITALS: BP 119/57; PULSE 70; RESP 18; O2SAT 100
--- NOTE | 2017-03-19 06:14 | RADRPT ---
EXAM DATE/TIME: 03/19/2017 04:51 [facility] COMPARISON: No previous studies available for comparison. INDICATIONS : Chest pain. IV CONTRAST: 73 cc Omnipaque 350 (iohexol) IV RADIATION DOSE: 21.55 CTDIvol (mGy) MEDICAL HISTORY : Sickle cell disease. SURGICAL HISTORY : Cholecystectomy. ENCOUNTER: Initial ACUITY: 1 day PAIN SCALE: 5/10 LOCATION: chest TECHNIQUE: Volumetric scanning of the chest was performed using a pulmonary embolism protocol MIP images were re constructed. Using automated exposure control and adjustment of the mA and/or kV according to patien t size, radiation dose was kept as low as reasonably achievable to obtain optimal diagnostic quality images. DICOM format image data is available electronically for review and comparison. Follow-up recommendations for incidentally detected pulmonary nodules are based at a minimum on nodul e size and patient risk factors according to Fleischner Society Guidelines. FINDINGS: PULMONARY ARTERIES: No filling defects are seen in the pulmonary arteries through the segmental level. LUNGS: There is mild atelectasis or scarring in the posterolateral right lower lobe. PLEURAE: There is no pleural thickening or pleural effusion. MEDIASTINUM: Heart is enlarged. There is good visualization of the great vessels of the middle mediastinum. No ev idence of mediastinal or hilar adenopathy/mass. MUSCULOSKELETAL: Within normal limits for patient age. MISCELLANEOUS: The visualized upper abdominal organs demonstrate no acute abnormality. CONCLUSION: No evidence of pulmonary embolism Ashwin Albarran MD on March 19, 2017 at 6:10 Board Certified Radiologist. This report was verified electronically.
[2017-03-19] MEDS ORDERED: HYDR-3535 PO (06:18)
[2017-03-19] MEDS ORDERED: ASPIRIN 81 MG CHEW TAB CHEW SCH ×2 (09:00)
--- NOTE | 2017-03-19 18:11 | EKG ---
Date Performed: 03/19/2017 Time Performed: 01:12:23 PTAGE: 27 years EKG: SINUS BRADYCARDIA VOLTAGE CRITERIA FOR LVH NONSPECIFIC ST & T-WAVE ABNORMALITY ABNORMAL ECG INTERPRETATION BASED ON A DEFAULT AGE OF 40 YEARS NO PREVIOUS TRACING DOCTOR: Ashvin Louis Interpretating Date/Time 03/19/2017 18:10:14
== END 2017-03-19 07:05 | disposition home or self-care (01) ==
LOC: NEPC 23:20
DX: D57.00 Hb-SS disease with crisis, unspecified (principal); R07.9 Chest pain, unspecified; R00.1 Bradycardia, unspecified
CPT/HCPCS: 71010; 71275; 80053; 81001; 82550; 83735; 84484; 85044; 85379; 86140; 93005; 96361; 96374; 96375; 96376; 99285; J1170; J1200; J2405; J7030; Q9967

== ENCOUNTER 2017-04-19 14:20 | Inpatient (IN) | payer MEDICARE ==
[~2017-04-19] VITALS: Ht 165.1 cm; Wt 51.3 kg
[~2017-04-19 14:20] MED LIST changes: -FOLI1TAB4 PO; +HYDR-3535 PO; -HYDR-3583 PO; -THERTAB15 PO; -ZOFR4TAB3 SL
[2017-04-19 14:22] VITALS: BP 130/59; PULSE 112; RESP 20; TEMP 97.3; O2SAT 94
--- NOTE | 2017-04-19 14:25 | PD ---
Physical Exam Date Seen by Provider: Apr 19, 2017 Time Seen by Provider: 14:24 Narrative 27 yo male here for sickle cell pain crisis. History of sickle cell. pain to back. Going on since today. No other medical complains. Pain is 8/10. Vitals are stable. Awaiting bed placement. Data Data Last Documented VS Vital Signs Date Time Temp Pulse Resp B/P (MAP) Pulse Ox O2 Delivery O2 Flow Rate FiO2 04/19/17 14:22 97.3 112 20 130/59 (82) 94 Room Air [facility] Medical Record Reviewed: Yes Supervised Visit with CARLOS: Carlos A Marquez Apr 19, 2017 14:25
--- NOTE | 2017-04-19 15:25 | PD ---
HPI Chief Complaint: Sickle Cell Time Seen by Provider: 15:16 Travel History International Travel<30 days: No Contact w/Intl Traveler<30days: No Traveled to known affect area: No History of Present Illness HPI This is a 27-year-old male who has a history of sickle cell disease who presents to the emergency department with severe pain in his hips and lower back , constant, waking him up from sleep at 10 AM, with no associated chest pain, shortness of breath, fevers or chills. This feels similar to his sickle crises in the past. He says he takes nothing at home for pain. PFSH Past Medical History Anemia: Yes (SICKLE CELL ANEMIA) Blood Disorders: Yes (Sickle Cell Disease) Anxiety: No Depression: No Cancer: No Cardiovascular Problems: No Diabetes: No Endocrine: No Gastrointestinal Disorders: Yes (cholecystectomy) Genitourinary: No Immune Disorder: No Implanted Vascular Access Dvce: No Musculoskeletal: No Neurologic: No Psychiatric: No Reproductive: No Respiratory: No Immunizations Current: Yes Sickle Cell Disease: Yes PNEUMOCCOCAL Vaccine (Year): 2 Past Surgical History Cholecystectomy: Yes Other Surgery: Yes (cholecystectomy ) Social History Alcohol Use: No Tobacco Use: No Substance Use: Yes (MARIJUANA) Allergies-Medications (Allergen,Severity, Reaction): Coded Allergies: No Known Allergies (Verified , 03/19/17) Reported Meds & Prescriptions Reported Meds & Active Scripts Active Lortab (Hydrocodone-Acetaminophen) 10-325 Mg Tab 1 Tab PO Q6H PRN Review of Systems Except as stated in HPI: all other systems reviewed are Neg Physical Exam Narrative GENERAL: Writhing in pain SKIN: Focused skin assessment warm and dry. HEAD: Atraumatic. Normocephalic. EYES: Pupils equal and round. No injection or drainage. ENT: Moist mucous membranes NECK: Trachea midline. CARDIOVASCULAR: Regular rate and rhythm. No murmur appreciated. RESPIRATORY: Clear to auscultation. Breath sounds equal bilaterally. GASTROINTESTINAL: Abdomen soft, non-tender, nondistended. MUSCULOSKELETAL: No obvious deformities. NEUROLOGICAL: Awake and alert. No obvious cranial nerve deficits. Moving all extremities. PSYCHIATRIC: Appropriate mood and affect; insight and judgment normal. Data Data Last Documented VS Vital Signs Date Time Temp Pulse Resp B/P (MAP) Pulse Ox O2 Delivery O2 Flow Rate FiO2 04/19/17 16:37 17 04/19/17 15:28 96 Room Air 04/19/17 14:22 97.3 112 130/59 (82) Orders Orders Basic Metabolic Panel (Bmp) (04/19/17 14:25) Complete Blood Count With Diff (04/19/17 14:25) Retic Count (04/19/17 14:25) Hydromorphone Pf Inj (Dilaudid Pf Inj) (04/19/17 15:30) Sodium Chlor 0.9% 1000 Ml Inj (Ns 1000 M (04/19/17 15:30) Ondansetron Inj (Zofran Inj) (04/19/17 15:30) Hydromorphone Pf Inj (Dilaudid Pf Inj) (04/19/17 15:45) Labs Laboratory Tests Test 04/19/17 15:31 White Blood Count 14.3 TH/MM3 Red Blood Count 2.55 MIL/MM3 Hemoglobin 7.0 GM/DL Hematocrit 21.4 % Mean Corpuscular Volume 83.8 FL Mean Corpuscular Hemoglobin 27.6 PG Mean Corpuscular Hemoglobin Concent 32.9 % Red Cell Distribution Width 22.0 % Platelet Count 228 TH/MM3 Mean Platelet Volume 9.5 FL Neutrophils (%) (Auto) 71.0 % Lymphocytes (%) (Auto) 17.6 % Monocytes (%) (Auto) 6.5 % Eosinophils (%) (Auto) 3.9 % Basophils (%) (Auto) 1.0 % Neutrophils # (Auto) 10.1 TH/MM3 Lymphocytes # (Auto) 2.5 TH/MM3 Monocytes # (Auto) 0.9 TH/MM3 Eosinophils # (Auto) 0.6 TH/MM3 Basophils # (Auto) 0.1 TH/MM3 CBC Comment AUTO DIFF Reticulocyte Count 15.4 % Absolute Reticulocyte Count 392.2 MIL/L MDM Medical Decision Making Medical Screen Exam Complete: Yes Emergency Medical Condition: Yes Interpretation(s) Afebrile, tachycardic, normotensive Mild leukocytosis Anemia Reticulocyte count is elevated Differential Diagnosis Vaso-occlusive crisis, acute chest syndrome, septic arthritis Narrative Course This is a 27-year-old male who has a history of sickle cell disease who presents to the emergency department with pain. An IV was established and the patient was placed on a monitor. Patient was found to be anemic. Reticulocyte count was elevated. White blood cell count is 14 which is likely a stress response as he has no localizing signs of infection. Patient was given IV Dilaudid. He'll be reassessed by oncoming provider for discharge. Marta Morales MD Apr 19, 2017 15:25
[2017-04-19] MEDS ORDERED: SODIUM CHLOR 0.9% 1000 ML INJ 1,000 ML IV ONE ×3 (15:30→20:00)
[2017-04-19] MEDS ORDERED: ONDANSETRON HCL 4 MG/2 ML VIAL IV PUSH ONE (15:30)
[2017-04-19] MEDS ORDERED: HYDROmorphone HCL PF 1 MG/ML VIAL IV PUSH ONE ×6 (15:30→22:30)
[2017-04-19 16:12] LABS: AUTOMATED NEUTROPHIL # 10.1 TH/MM3 (1.8-7.7); BASOPHIL # 0.1 TH/MM3 (0-0.2); EOSINOPHIL # 0.6 TH/MM3 (0-0.4); EOSINOPHIL % 3.9 % (0.0-4.0); HEMATOCRIT 21.4 % (39.0-51.0); LYMPH % 17.6 % (9.0-44.0); LYMPHOCYTE # 2.5 TH/MM3 (1.0-4.8); MEAN CELL VOLUME 83.8 FL (80.0-100.0); MEAN CORPUSCULAR HEMOGLOBIN 27.6 PG (27.0-34.0); MEAN CORPUSCULAR HGB CONC 32.9 % (32.0-36.0); MONO % 6.5 % (0.0-8.0); PLATELET COUNT 228 TH/MM3 (150-450); RED BLOOD COUNT 2.55 MIL/MM3 (4.50-5.90); RETIC % 15.4 % (0.4-3.0); WHITE BLOOD COUNT 14.3 TH/MM3 (4.0-11.0)
[2017-04-19 16:31] LABS: HEMO FLAGS AUTO DIFF; REVIEW FLAG AUTO DIFF
[2017-04-19 17:14] VITALS: BP 142/65; PULSE 107; RESP 17; O2SAT 96
[2017-04-19 17:20] LABS: BANDS 2 % (0-6); BASOPHILS 1 % (0-2); CORRECTED NUCLEATED RBC 2 /100 WBC (0-0); EOSINOPHILS 4 % (0-4); METAMYELOCYTES 1 % (0-1); POLYS (SEG NEUTROPHILS) 67 % (16-70); WBC DIFF SAMPLE 100
[2017-04-19 17:22] LABS: POLYCHROMASIA 3.2 % (0.0-1.9); SICKLE CELLS 2+ (NORMAL); TARGET CELLS 1+ (NORMAL)
[2017-04-19 17:23] LABS: PLATELET ESTIMATE SMEAR NORMAL (NORMAL); PLATELET MORPHOLOGY ENLARGED (NORMAL); SCAN/DIFF FINAL DIFF MANUAL
[2017-04-19 17:48] LABS: POTASSIUM 4.1 MEQ/L (3.5-5.1)
[2017-04-19 18:25] VITALS: BP 123/57; PULSE 109; RESP 18; O2SAT 100
--- NOTE | 2017-04-19 18:50 | PD ---
Physical Exam Narrative Received sign out from previous team to reevaluated patient. 27yo M with sickle cell disease where with lower back and hip pain that feels like his sickle cell crisis. Denies any fever, chest pain, sob. Labs reviewed, mild leukocytosis at 14.3. H/H is low at 7/21.4. Increased reticulocyte count. Pt given dilaudid 2mg IV and NS IVF by previous provider. I also gave him another dilaudid 2mg IV and NS IVF. Pt reevaluated at bedside and is still in a lot of pain. Will admit pt for vasoocclusive crisis. Will give another dilaudid 1mg IV and a third liter of NS IVF. Discussed with Dr. Dasilva and accepted to her service. Data Data Last Documented VS Vital Signs Date Time Temp Pulse Resp B/P (MAP) Pulse Ox O2 Delivery O2 Flow Rate FiO2 04/19/17 19:47 112 18 126/64 (84) 99 Room Air 04/19/17 18:25 2.00 04/19/17 14:22 97.3 Orders Orders Basic Metabolic Panel (Bmp) (04/19/17 14:25) Complete Blood Count With Diff (04/19/17 14:25) Retic Count (04/19/17 14:25) Hydromorphone Pf Inj (Dilaudid Pf Inj) (04/19/17 15:30) Sodium Chlor 0.9% 1000 Ml Inj (Ns 1000 M (04/19/17 15:30) Ondansetron Inj (Zofran Inj) (04/19/17 15:30) Hydromorphone Pf Inj (Dilaudid Pf Inj) (04/19/17 15:45) Hydromorphone Pf Inj (Dilaudid Pf Inj) (04/19/17 17:15) Hydromorphone Pf Inj (Dilaudid Pf Inj) (04/19/17 19:00) Sodium Chlor 0.9% 1000 Ml Inj (Ns 1000 M (04/19/17 19:00) Sodium Chlor 0.9% 1000 Ml Inj (Ns 1000 M (04/19/17 20:00) Admit Order (Ed Use Only) (04/19/17 20:05) Admit To Inpatient (04/19/17 ) Vital Signs (Adult) Q4H (04/19/17 20:04) Activity Oob With Assistance (04/19/17 20:04) Beverage Manager / Telemetry .CONTINUOUS (04/19/17 20:04) Diet Heart Healthy (04/20/17 Breakfast) Sodium Chlor 0.9% 1000 Ml Inj (Ns 1000 M (04/19/17 20:04) Sodium Chloride 0.9% Flush (Ns Flush) (04/19/17 20:15) Sodium Chloride 0.9% Flush (Ns Flush) (04/19/17 21:00) Comprehensive Metabolic Panel (04/20/17 06:00) Complete Blood Count With Diff (04/20/17 06:00) Naloxone Inj (Narcan Inj) (04/19/17 20:15) Inpatient Certification (04/19/17 ) Hydromorphone Pf Inj (Dilaudid Pf Inj) (04/19/17 20:15) Labs Laboratory Tests Test 04/19/17 15:31 04/19/17 16:37 White Blood Count 14.3 TH/MM3 Red Blood Count 2.55 MIL/MM3 Hemoglobin 7.0 GM/DL Hematocrit 21.4 % Mean Corpuscular Volume 83.8 FL Mean Corpuscular Hemoglobin 27.6 PG Mean Corpuscular Hemoglobin Concent 32.9 % Red Cell Distribution Width 22.0 % Platelet Count 228 TH/MM3 Mean Platelet Volume 9.5 FL Neutrophils (%) (Auto) 71.0 % Lymphocytes (%) (Auto) 17.6 % Monocytes (%) (Auto) 6.5 % Eosinophils (%) (Auto) 3.9 % Basophils (%) (Auto) 1.0 % Neutrophils # (Auto) 10.1 TH/MM3 Lymphocytes # (Auto) 2.5 TH/MM3 Monocytes # (Auto) 0.9 TH/MM3 Eosinophils # (Auto) 0.6 TH/MM3 Basophils # (Auto) 0.1 TH/MM3 CBC Comment AUTO DIFF Differential Total Cells Counted 100 Neutrophils % (Manual) 67 % Band Neutrophils % 2 % Lymphocytes % 18 % Monocytes % 7 % Eosinophils % 4 % Basophils % 1 % Neutrophils # (Manual) 10.0 TH/MM3 Metamyelocytes 1 % Nucleated Red Blood Cells 2 /100 WBC Differential Comment FINAL DIFF MANUAL Platelet Estimate NORMAL Platelet Morphology Comment ENLARGED Polychromasia 3.2 % Sickle Cells 2+ Target Cells 1+ Reticulocyte Count 15.4 % Absolute Reticulocyte Count 392.2 MIL/L Blood Urea Nitrogen 4 MG/DL Creatinine 0.73 MG/DL Random Glucose 111 MG/DL Calcium Level 8.4 MG/DL Sodium Level 139 MEQ/L Potassium Level 4.1 MEQ/L Chloride Level 107 MEQ/L Carbon Dioxide Level 24.0 MEQ/L Anion Gap 8 MEQ/L Estimat Glomerular Filtration Rate 155 ML/MIN MDM Supervised Visit with CARLOS: No Diagnosis Primary Impression: Vaso-occlusive sickle cell crisis Admitting Information Admitting Physician Requests: Observation Krupa Phelps DO Apr 19, 2017 18:50
[2017-04-19 19:47] VITALS: BP 126/64; PULSE 112; RESP 18; O2SAT 99
[2017-04-19] MEDS ORDERED: NALOXONE HCL 0.4 MG/ML AMP IV PRN (20:15)
[2017-04-19] MEDS: SODIUM CHLOR 0.9% 1000 ML INJ 1,000 ML IV SCH (21:42)
[2017-04-19] MEDS: SODIUM CHLORIDE 0.9% FLUSH 10 ML FLUSH IV FLUSH SCH (21:42)
[2017-04-19] MEDS: oxyCODONE/ACETAMINOPHEN 5 MG/325 MG TAB PO PRN (21:46)
[2017-04-19] MEDS: SODIUM CHLORIDE 0.9% FLUSH 10 ML FLUSH IV FLUSH PRN (22:53)
[2017-04-20] VITALS (7 sets, daily range): BP systolic 104–130; BP diastolic 56–60; PULSE 100–125; RESP 16–20; TEMP 97.9–101.2; O2SAT 90–98
[2017-04-20] MEDS: HYDROmorphone HCL PF 1 MG/ML VIAL IV PUSH PRN ×4 (01:02→15:30)
[2017-04-20] MEDS: SODIUM CHLORIDE 0.9% FLUSH 10 ML FLUSH IV FLUSH PRN (01:03)
[2017-04-20] MEDS: SODIUM CHLOR 0.9% 1000 ML INJ 1,000 ML IV SCH ×4 (03:00→21:52)
[2017-04-20] MEDS: oxyCODONE/ACETAMINOPHEN 5 MG/325 MG TAB PO PRN ×4 (03:46→20:33)
[2017-04-20 07:52] LABS: AUTOMATED NEUTROPHIL # 9.7 TH/MM3 (1.8-7.7); BASOPHIL % 0.4 % (0.0-2.0); EOSINOPHIL % 0.2 % (0.0-4.0); LYMPH % 8.9 % (9.0-44.0); MEAN CORPUSCULAR HEMOGLOBIN 28.9 PG (27.0-34.0); MEAN CORPUSCULAR HGB CONC 35.2 % (32.0-36.0); MONO % 6.3 % (0.0-8.0); NEUT % 84.2 % (16.0-70.0); PLATELET COUNT 175 TH/MM3 (150-450); RED BLOOD COUNT 2.25 MIL/MM3 (4.50-5.90); RED CELL DISTRIBUTION WIDTH 22.1 % (11.6-17.2); WHITE BLOOD COUNT 11.5 TH/MM3 (4.0-11.0)
[2017-04-20 08:13] LABS: HEMO FLAGS AUTO DIFF
[2017-04-20 08:16] LABS: HEMATOCRIT 18.5 % (39.0-51.0)
[2017-04-20 08:37] LABS: ANION GAP 8 MEQ/L (5-15); AST (GOT) 105 U/L (15-37); BICARBONATE 22.4 MEQ/L (21.0-32.0); BLOOD UREA NITROGEN 7 MG/DL (7-18); CHLORIDE 110 MEQ/L (98-107); GLOMERULAR FILTRATION RATE 177 ML/MIN (>89); POTASSIUM 3.9 MEQ/L (3.5-5.1); SODIUM (NA) 140 MEQ/L (136-145)
[2017-04-20 08:38] LABS: ALT (GPT) 53 U/L (12-78)
[2017-04-20 08:40] LABS: ALKALINE PHOSPHATASE 81 U/L (45-117); TOTAL BILIRUBIN ADULT 4.4 MG/DL (0.2-1.0)
[2017-04-20] MEDS: SODIUM CHLORIDE 0.9% FLUSH 10 ML FLUSH IV FLUSH SCH ×2 (09:00→20:31)
[2017-04-20 09:14] LABS: BANDS 20 % (0-6); CORRECTED NUCLEATED RBC 13 /100 WBC (0-0); METAMYELOCYTES 1 % (0-1); POLYS (SEG NEUTROPHILS) 66 % (16-70); WBC DIFF SAMPLE 100
[2017-04-20 09:16] LABS: PLATELET ESTIMATE SMEAR NORMAL (NORMAL); PLATELET MORPHOLOGY ENLARGED (NORMAL); SCAN/DIFF FINAL DIFF MANUAL; SICKLE CELLS 2+ (NORMAL); TARGET CELLS 1+ (NORMAL)
[2017-04-20] MEDS ORDERED: SODIUM CHLOR 0.9% 250 ML INJ 250 ML IV ONE (10:00)
[2017-04-20] MEDS ORDERED: diphenhydrAMINE HCL 25 MG CAP PO PRN (10:00)
--- NOTE | 2017-04-20 11:26 | HHI.HP ---
[facility] No Primary Care Physician Admission Diagnosis Vasoocclusive crisis Diagnoses: (1) Vaso-occlusive sickle cell crisis (2) Sickle cell anemia Chief Complaint: Hip and left knee pain Travel History International Travel<30 Days: No Contact w/Intl Traveler <30 Da: No Traveled to Known Affected Are: No History of Present Illness 27 year-old -[place] male with a history of sickle cell disease presented to the ED for evaluation of an acute onset of back, right hip as well as left hip pain since 10 AM yesterday. The pain is described as stabbing and radiated over 8 in intensity, not relief with current by mouth narcotics. Patient denies any chest pain. Denies any recent febrile episode or exposure to heat. His had multiple ED visit secondary to vaso-occlusive sickle cell crisis. During my exam, patient had one episode of emesis. He has no GI bleed however. Review of Systems Except as stated in HPI: all other systems reviewed are Neg Past Family Social History Past Medical History Sickle Cell Disease Sickle cell anemia Past Surgical History Cholecystectomy age 12 Still has his spleen Reported Medications Lortab (Hydrocodone-Acetaminophen) 10-325 Mg Tab 1 Tab PO Q6H PRN Allergies: Coded Allergies: No Known Allergies (Verified , 03/19/17) Family History Maternal Cousin with SSD Social History Cigarettes: never Alcohol: occasional Illicit: marijuana Physical Exam Vital Signs Vital Signs Date Time Temp Pulse Resp B/P (MAP) Pulse Ox O2 Delivery O2 Flow Rate FiO2 04/20/17 10:22 16 04/20/17 08:06 99.0 103 16 114/57 (76) 94 04/20/17 04:23 97.9 125 18 130/60 (83) 98 04/20/17 04:00 Room Air 04/20/17 00:53 98.1 125 18 127/57 (80) 98 04/20/17 00:00 Room Air 04/19/17 19:47 112 18 126/64 (84) 99 Room Air 04/19/17 18:26 19 04/19/17 18:25 109 18 123/57 (79) 100 Nasal Cannula 2.00 04/19/17 17:27 96 2.00 04/19/17 17:14 107 17 142/65 (90) 96 Room Air 04/19/17 16:37 17 04/19/17 16:36 17 04/19/17 15:28 22 96 Room Air 04/19/17 14:22 97.3 112 20 130/59 (82) 94 Room Air Physical Exam GENERAL: This is a well-nourished, well-developed patient, in mild apparent distress. SKIN: No rashes, ecchymoses or lesions. Cool and dry. HEAD: Atraumatic. Normocephalic. No temporal or scalp tenderness. EYES: Pupils equal round and reactive. Extraocular motions intact. No scleral icterus. No injection or drainage. ENT: Nose without bleeding, purulent drainage or septal hematoma. Throat without erythema, tonsillar hypertrophy or exudate. Uvula midline. Airway patent. NECK: Trachea midline. No JVD or lymphadenopathy. Supple, nontender, no meningeal signs. CARDIOVASCULAR: Regular rate and rhythm without murmurs, gallops, or rubs. RESPIRATORY: Clear to auscultation. Breath sounds equal bilaterally. No wheezes , rales, or rhonchi. GASTROINTESTINAL: Abdomen soft, non-tender, nondistended. No hepato-splenomegaly , or palpable masses. No guarding. MUSCULOSKELETAL: Extremities without clubbing, cyanosis, or edema. + joint tenderness right hip and left knee, No effusion, or edema noted. No calf tenderness. NEUROLOGICAL: Awake and alert. Cranial nerves II through XII intact. Motor and sensory grossly within normal limits. Five out of 5 muscle strength in all muscle groups. Normal speech. Laboratory Laboratory Tests Test 04/19/17 15:31 04/19/17 16:37 04/20/17 06:49 White Blood Count 14.3 11.5 Red Blood Count 2.55 2.25 Hemoglobin 7.0 6.5 Hematocrit 21.4 18.5 Mean Corpuscular Volume 83.8 82.0 Mean Corpuscular Hemoglobin 27.6 28.9 Mean Corpuscular Hemoglobin Concent 32.9 35.2 Red Cell Distribution Width 22.0 22.1 Platelet Count 228 175 Mean Platelet Volume 9.5 10.0 Neutrophils (%) (Auto) 71.0 84.2 Lymphocytes (%) (Auto) 17.6 8.9 Monocytes (%) (Auto) 6.5 6.3 Eosinophils (%) (Auto) 3.9 0.2 Basophils (%) (Auto) 1.0 0.4 Neutrophils # (Auto) 10.1 9.7 Lymphocytes # (Auto) 2.5 1.0 Monocytes # (Auto) 0.9 0.7 Eosinophils # (Auto) 0.6 0.0 Basophils # (Auto) 0.1 0.0 CBC Comment AUTO DIFF AUTO DIFF Differential Total Cells Counted 100 100 Neutrophils % (Manual) 67 66 Band Neutrophils % 2 20 Lymphocytes % 18 8 Monocytes % 7 5 Eosinophils % 4 Basophils % 1 Neutrophils # (Manual) 10.0 10.0 Metamyelocytes 1 1 Nucleated Red Blood Cells 2 13 Differential Comment FINAL DIFF MANUAL FINAL DIFF MANUAL Platelet Estimate NORMAL NORMAL Platelet Morphology Comment ENLARGED ENLARGED Polychromasia 3.2 Sickle Cells 2+ 2+ Target Cells 1+ 1+ Reticulocyte Count 15.4 Absolute Reticulocyte Count 392.2 Blood Urea Nitrogen 4 7 Creatinine 0.73 0.65 Random Glucose 111 107 Calcium Level 8.4 7.9 Sodium Level 139 140 Potassium Level 4.1 3.9 Chloride Level 107 110 Carbon Dioxide Level 24.0 22.4 Anion Gap 8 8 Estimat Glomerular Filtration Rate 155 177 Total Protein 6.6 Albumin 3.4 Alkaline Phosphatase 81 Aspartate Amino Transf (AST/SGOT) 105 Alanine Aminotransferase (ALT/SGPT) 53 Total Bilirubin 4.4 Result Diagram: 04/20/17 0649 04/20/17 0649 Septic Shock Reassessment Heart: Regular rate and rhythm Lungs: Clear Skin: Warm Peripheral Pulses: Bounding Right Radial Bounding Left Radial Bounding Right Popliteal Bounding Left Popliteal Bounding Right Dorsalis Pedis Bounding Left Dorsalis Pedis Bounding Right Posterior Tibial Bounding Left Posterior Tibial Caprini VTE Risk Assessment Caprini VTE Risk Assessment: No/Low Risk (score <= 1) Caprini Risk Assessment Model Point Value = 1 Point Value = 2 Point Value = 3 Point Value = 5 Age 41-60 Minor surgery BMI > 25 kg/m2 Swollen legs Varicose veins or History of unexplained or recurrent spontaneous Oral contraceptives or hormone replacement Sepsis (< 1 month) Serious lung disease, including pneumonia (< 1 month) Abnormal pulmonary function Acute myocardial infarction Congestive heart failure (< 1 month) History of inflammatory bowel disease Medical patient at bed rest Age 61-74 Arthroscopic surgery Major open surgery (> 45 min) Laparoscopic surgery (> 45 min) Malignancy Confined to bed (> 72 hours) Immobilizing plaster cast Central venous access Age >= 75 History of VTE Family history of VTE Factor V Leiden Prothrombin [id number] Lupus anticoagulant Anticardiolipin antibodies Elevated serum homocysteine Heparin-induced thrombocytopenia Other congenital or acquired thrombophilia Stroke (< 1 month) Elective arthroplasty Hip, pelvis, or leg fracture Acute spinal cord injury (< 1 month) Prophylaxis Regimen Total Risk Factor Score Risk Level Prophylaxis Regimen 0-1 Low Early ambulation 2 Moderate Order ONE of the following: *Sequential Compression Device (SCD) *Heparin 5000 units SQ BID 3-4 Higher Order ONE of the following medications: *Heparin 5000 units SQ TID *Enoxaparin/Lovenox 40 mg SQ daily (WT < 150 kg, CrCl > 30 mL/min) *Enoxaparin/Lovenox 30 mg SQ daily (WT < 150 kg, CrCl > 10-29 mL/min) *Enoxaparin/Lovenox 30 mg SQ BID (WT < 150 kg, CrCl > 30 mL/min) AND/OR *Sequential Compression Device (SCD) 5 or more Highest Order ONE of the following medications: *Heparin 5000 units SQ TID (Preferred with Epidurals) *Enoxaparin/Lovenox 40 mg SQ daily (WT < 150 kg, CrCl > 30 mL/min) *Enoxaparin/Lovenox 30 mg SQ daily (WT < 150 kg, CrCl > 10-29 mL/min) *Enoxaparin/Lovenox 30 mg SQ BID (WT < 150 kg, CrCl > 30 mL/min) AND *Sequential Compression Device (SCD) Assessment and Plan Problem List: (1) Sickle cell anemia ICD Code: D57.1 - Sickle-cell disease without crisis (2) Vaso-occlusive sickle cell crisis ICD Code: D57.00 - Hb-SS disease with crisis, unspecified Status: Acute Assessment and Plan 27 year-old man with Vaso-occlusive sickle cell crisis Aggressive IV fluid resuscitation Parenteral Pain management Start folic acid and consider Hydrea Hematology consultation if no improvement Monitor reticulocyte count and LDH Sickle cell anemia Will transfuse 1 unit packed red blood cell DVT prophylaxis: Lovenox Code Status Full code Discussed Condition With Patient Physician Certification 2 Midnight Certification Type: Admission for Inpatient Services Order for Inpatient Services The services are ordered in accordance with Medicare regulations or non- Medicare payer requirements, as applicable. In the case of services not specified as inpatient-only, they are appropriately provided as inpatient services in accordance with the 2-midnight benchmark. Estimated LOS (days): 2 days is the estimated time the patient will need to remain in the hospital, assuming treatment plan goals are met and no additional complications. Post-Hospital Plan: Not yet determined Ish Ospina MD Apr 20, 2017 11:26
[2017-04-20] MEDS: ACETAMINOPHEN 325 MG TAB PO PRN ×2 (12:09→18:24)
[2017-04-20] MEDS ORDERED: ONDANSETRON HCL 4 MG/2 ML VIAL IV PUSH PRN (20:30)
[2017-04-20] MEDS ORDERED: HYDROmorphone HCL PF 1 MG/ML VIAL IV PUSH ONE (21:15)
[2017-04-21] VITALS (10 sets, daily range): BP systolic 94–120; BP diastolic 46–59; PULSE 66–114; RESP 16–20; TEMP 96.5–101.3; O2SAT 92–97
[2017-04-21] MEDS: SODIUM CHLOR 0.9% 1000 ML INJ 1,000 ML IV SCH ×3 (00:11→14:02)
[2017-04-21] MEDS: HYDROmorphone HCL PF 1 MG/ML VIAL IV PUSH PRN ×5 (01:16→21:47)
[2017-04-21] MEDS: cefTRIAXone INJ 1,000 MG in SODIUM CHLORIDE 0.9% INJ 100 ML IV SCH ×2 (01:16→14:06)
--- NOTE | 2017-04-21 01:23 | RADRPT ---
EXAM DATE/TIME: 04/21/2017 00:47 [facility] COMPARISON: CHEST SINGLE AP, March 19, 2017, 1:46. INDICATIONS : Fever MEDICAL HISTORY : Sickle Cell disease. SURGICAL HISTORY : Cholecystectomy. ENCOUNTER: Initial ACUITY: 1 day PAIN SCORE: 7/10 LOCATION: Bilateral chest FINDINGS: A single view of the chest demonstrates the lungs to be symmetrically aerated without evidence of mas s, or effusion. Question airspace disease in the right lower lobe. The cardiomediastinal contours are unremarkable. Osseous structures are intact. CONCLUSION: Question airspace disease in the right lower lobe could be a small area of pneumonia. Jayden Springer MD on April 21, 2017 at 1:20 Board Certified Radiologist. This report was verified electronically.
[2017-04-21] MEDS ORDERED: ACETAMINOPHEN 650 MG SUPP RECTAL PRN (01:45)
[2017-04-21 02:22] LABS: AUTOMATED NEUTROPHIL # 7.4 TH/MM3 (1.8-7.7); BASOPHIL % 0.3 % (0.0-2.0); EOSINOPHIL % 0.3 % (0.0-4.0); LYMPHOCYTE # 1.6 TH/MM3 (1.0-4.8); MEAN CELL VOLUME 81.5 FL (80.0-100.0); MEAN CORPUSCULAR HEMOGLOBIN 28.2 PG (27.0-34.0); MEAN CORPUSCULAR HGB CONC 34.6 % (32.0-36.0); MONO % 9.7 % (0.0-8.0); NEUT % 73.7 % (16.0-70.0); PLATELET COUNT 182 TH/MM3 (150-450); RED CELL DISTRIBUTION WIDTH 21.5 % (11.6-17.2)
[2017-04-21 02:23] LABS: HEMO FLAGS AUTO DIFF; RETIC % 14.2 % (0.4-3.0)
[2017-04-21 02:26] LABS: HEMATOCRIT 17.1 % (39.0-51.0)
[2017-04-21 02:27] LABS: REVIEW FLAG FINAL
[2017-04-21 02:35] LABS: BICARBONATE 23.8 MEQ/L (21.0-32.0); POTASSIUM 3.1 MEQ/L (3.5-5.1)
[2017-04-21 02:55] LABS: BANDS 60 % (0-6); CORRECTED NUCLEATED RBC 22 /100 WBC (0-0); METAMYELOCYTES 1 % (0-1); NEUTROPHIL # MANUAL DIFF 7.4 TH/MM3 (1.8-7.7); POLYS (SEG NEUTROPHILS) 13 % (16-70); WBC DIFF SAMPLE 100
[2017-04-21 02:56] LABS: HOWELL-JOLLY BODIES PRESENT (NONE SEEN); PLATELET ESTIMATE SMEAR NORMAL (NORMAL); PLATELET MORPHOLOGY NORMAL (NORMAL); SCAN/DIFF FINAL DIFF MANUAL; SICKLE CELLS 1+ (NORMAL)
[2017-04-21] MEDS ORDERED: ACETAMINOPHEN 325 MG TAB PO PRN (03:15)
[2017-04-21] MEDS ORDERED: diphenhydrAMINE HCL 25 MG CAP PO PRN (03:15)
[2017-04-21] MEDS ORDERED: SODIUM CHLOR 0.9% 250 ML INJ 250 ML IV ONE (03:15)
[2017-04-21] MEDS: POTASSIUM CHLOR 20 MEQ PREMIX 100 ML IV SCH ×2 (03:48→06:16)
[2017-04-21] MEDS: oxyCODONE/ACETAMINOPHEN 5 MG/325 MG TAB PO PRN ×2 (05:01→05:45)
[2017-04-21] MEDS: ACETAMINOPHEN 325 MG TAB PO PRN (05:44)
[2017-04-21] MEDS ORDERED: ENOXAPARIN SODIUM 40 MG/0.4 ML SYRINGE SQ SCH (09:00)
[2017-04-21] MEDS: FOLIC ACID 1 MG TAB PO SCH (09:09)
[2017-04-21] MEDS: SODIUM CHLORIDE 0.9% FLUSH 10 ML FLUSH IV FLUSH SCH ×2 (09:11→21:00)
[2017-04-21 09:26] LABS: C. DIFF EPI 027 PRESUMPTIVE NEGATIVE (NEGATIVE)
--- NOTE | 2017-04-21 11:26 | HHI.PR ---
Subjective Remarks Follow-up vaso-occlusive crisis/sickle cell anemia/community-acquired pneumonia 04/21/17-patient seen and examined reports some improvement of sickle cell pain to right hip and left knee however the pain is down to 6. No more emesis. Afebrile. Objective Vitals Vital Signs Date Time Temp Pulse Resp B/P (MAP) Pulse Ox O2 Delivery O2 Flow Rate FiO2 04/21/17 08:00 96.5 81 16 117/50 (72) 94 04/21/17 07:35 98.7 73 20 115/57 92 04/21/17 07:19 97.9 79 20 106/53 92 04/21/17 04:00 101.3 114 20 116/54 (74) 93 04/21/17 01:29 Room Air 04/21/17 00:00 100.0 109 20 110/55 (73) 92 04/20/17 20:21 114 04/20/17 20:00 Room Air 04/20/17 20:00 99.7 110 20 124/59 (80) 93 04/20/17 16:41 22 04/20/17 16:25 98.9 100 18 104/60 (75) 90 04/20/17 14:19 18 04/20/17 12:31 101.2 105 18 118/56 (76) 93 I/O 04/20/17 04/20/17 04/20/17 04/21/17 04/21/17 04/21/17 07:00 15:00 23:00 07:00 15:00 23:00 Intake Total 4240 ml 5049 ml 1280 ml 2 ml Output Total 800 ml 1500 ml 1325 ml Balance 4240 ml -800 ml 3549 ml -45 ml 2 ml Intake Oral 240 ml 480 ml 1080 ml IV Total 4000 ml 4569 ml 200 ml Blood Product IV Normal Saline Flush 2 ml Output Urine Total 800 ml 1500 ml 1325 ml # Bowel Movements 0 3 Result Diagram: 04/21/1713404/21/17134 Imaging Last Impressions Chest X-Ray 04/21/17 0000 Signed Impressions: Service Date/Time: Friday, April 21, 2017 00:47 - CONCLUSION: Question airspace disease in the right lower lobe could be a small area of pneumonia. Jayden Springer MD Objective Remarks GENERAL: NAD SKIN: Warm and dry. HEAD: Normocephalic. EYES: No scleral icterus. No injection or drainage. NECK: Supple, trachea midline. No JVD or lymphadenopathy. CARDIOVASCULAR: Regular rate and rhythm without murmurs, gallops, or rubs. RESPIRATORY: Breath sounds equal bilaterally. No accessory muscle use. GASTROINTESTINAL: Abdomen soft, non-tender, nondistended. MUSCULOSKELETAL: No cyanosis, or edema. BACK: Nontender without obvious deformity. No CVA tenderness. A/P Problem List: (1) Vaso-occlusive sickle cell crisis ICD Code: D57.00 - Hb-SS disease with crisis, unspecified Status: Acute (2) Sickle cell anemia ICD Code: D57.1 - Sickle-cell disease without crisis Assessment and Plan 27 year-old man with Vaso-occlusive sickle cell crisis Continue Aggressive IV fluid resuscitation Parenteral Pain management Continue folic acid and consider Hydrea Hematology consultation if no improvement Monitor reticulocyte count and LDH Sickle cell anemia Transfuse 1 unit packed red blood cell Community-acquired pneumonia Checks x-ray with possible left lower lobe infiltrate Currently on Rocephin 1 g IV every 24 DVT prophylaxis: Ish Lopez MD Apr 21, 2017 11:26
[2017-04-21] MEDS ORDERED: ACETAMINOPHEN/HYDROcodone 325 MG/10 MG TAB PO PRN (11:30)
[2017-04-21] MEDS ORDERED: POTASSIUM CHLORIDE 10 MEQ CONTROLLED RELEASE TAB PO ONE (13:00)
[2017-04-21] MEDS: LACTOBACILLUS ACIDOPHILUS TAB PO SCH (21:00)
[2017-04-22] VITALS (7 sets, daily range): BP systolic 105–126; BP diastolic 51–58; PULSE 59–91; RESP 16–19; TEMP 98.2–99.6; O2SAT 97–99
[2017-04-22] MEDS: cefTRIAXone INJ 1,000 MG in SODIUM CHLORIDE 0.9% INJ 100 ML IV SCH ×2 (00:56→13:10)
[2017-04-22] MEDS: HYDROmorphone HCL PF 1 MG/ML VIAL IV PUSH PRN ×4 (05:17→22:22)
[2017-04-22] MEDS: SODIUM CHLOR 0.9% 1000 ML INJ 1,000 ML IV SCH ×3 (05:52→18:35)
[2017-04-22 08:11] LABS: AUTOMATED NEUTROPHIL # 8.1 TH/MM3 (1.8-7.7); BASOPHIL % 0.3 % (0.0-2.0); EOSINOPHIL # 0.7 TH/MM3 (0-0.4); EOSINOPHIL % 6.1 % (0.0-4.0); HEMATOCRIT 21.4 % (39.0-51.0); LYMPH % 19.1 % (9.0-44.0); LYMPHOCYTE # 2.3 TH/MM3 (1.0-4.8); MEAN CELL VOLUME 83.5 FL (80.0-100.0); MEAN CORPUSCULAR HEMOGLOBIN 28.1 PG (27.0-34.0); MEAN CORPUSCULAR HGB CONC 33.7 % (32.0-36.0); NEUT % 67.5 % (16.0-70.0); PLATELET COUNT 202 TH/MM3 (150-450); RED BLOOD COUNT 2.56 MIL/MM3 (4.50-5.90); RED CELL DISTRIBUTION WIDTH 18.7 % (11.6-17.2)
[2017-04-22 08:18] LABS: HEMO FLAGS AUTO DIFF
[2017-04-22 08:32] LABS: BICARBONATE 24.8 MEQ/L (21.0-32.0); POTASSIUM 3.2 MEQ/L (3.5-5.1)
[2017-04-22] MEDS: FOLIC ACID 1 MG TAB PO SCH (09:38)
[2017-04-22] MEDS: SODIUM CHLORIDE 0.9% FLUSH 10 ML FLUSH IV FLUSH SCH ×2 (09:39→22:21)
[2017-04-22] MEDS: LACTOBACILLUS ACIDOPHILUS TAB PO SCH ×2 (09:39→22:20)
[2017-04-22 10:16] LABS: BANDS 8 % (0-6); CORRECTED NUCLEATED RBC 3 /100 WBC (0-0); EOSINOPHILS 4 % (0-4); NEUTROPHIL # MANUAL DIFF 7.6 TH/MM3 (1.8-7.7); POLYS (SEG NEUTROPHILS) 55 % (16-70); WBC DIFF SAMPLE 100
[2017-04-22 10:17] LABS: POLYCHROMASIA 4.3 % (0.0-1.9)
[2017-04-22 10:18] LABS: KERATOCYTES OCC (NORMAL); PLATELET ESTIMATE SMEAR NORMAL (NORMAL); PLATELET MORPHOLOGY NORMAL (NORMAL); SCAN/DIFF FINAL DIFF MANUAL; SICKLE CELLS 1+ (NORMAL); TARGET CELLS 2+ (NORMAL)
--- NOTE | 2017-04-22 11:41 | HHI.PR ---
Subjective Remarks Follow-up vaso-occlusive crisis/sickle cell anemia/community-acquired pneumonia 04/21/17-patient seen and examined reports some improvement of sickle cell pain to right hip and left knee however the pain is down to 6. No more emesis. Afebrile. 04/22/17-patient seen and examined, the pain has improved now down to 5 and mainly located to his hips as well as his back. Afebrile. Tolerated by mouth without any competition nausea and vomiting Objective Vitals Vital Signs Date Time Temp Pulse Resp B/P (MAP) Pulse Ox O2 Delivery O2 Flow Rate FiO2 04/22/17 08:00 98.5 67 16 112/51 (71) 98 04/22/17 04:00 99.6 91 19 126/58 (80) 97 04/22/17 00:00 99.4 82 16 125/58 (80) 99 04/21/17 21:49 Room Air 04/21/17 20:05 66 04/21/17 20:00 99.3 84 18 94/46 (62) 97 04/21/17 16:00 99.7 94 16 120/58 (78) 96 04/21/17 12:00 98.2 77 16 106/59 (75) 97 04/21/17 11:55 98.2 77 16 106/59 92 I/O 04/21/17 04/21/17 04/21/17 04/22/17 04/22/17 04/22/17 07:00 15:00 23:00 07:00 15:00 23:00 Intake Total 1280 ml 1552 ml 250 ml 1720 ml Output Total 1325 ml 2960 ml 1100 ml Balance -45 ml 1552 ml -2710 ml 620 ml Intake Oral 1080 ml 620 ml IV Total 200 ml 1200 ml 250 ml 1100 ml Packed Cells 250 ml Blood Product IV Normal Saline Flush 102 ml Output Urine Total 1325 ml 2960 ml 1100 ml # Bowel Movements 3 4 3 Result Diagram: 04/22/1771904/22/17719 Objective Remarks GENERAL: NAD SKIN: Warm and dry. HEAD: Normocephalic. EYES: No scleral icterus. No injection or drainage. NECK: Supple, trachea midline. No JVD or lymphadenopathy. CARDIOVASCULAR: Regular rate and rhythm without murmurs, gallops, or rubs. RESPIRATORY: Breath sounds equal bilaterally. No accessory muscle use. GASTROINTESTINAL: Abdomen soft, non-tender, nondistended. MUSCULOSKELETAL: No cyanosis, or edema. BACK: Nontender without obvious deformity. No CVA tenderness. A/P Problem List: (1) Vaso-occlusive sickle cell crisis ICD Code: D57.00 - Hb-SS disease with crisis, unspecified Status: Acute (2) Sickle cell anemia ICD Code: D57.1 - Sickle-cell disease without crisis Assessment and Plan 27 year-old man with Vaso-occlusive sickle cell crisis Continue Aggressive IV fluid resuscitation Continue Parenteral Pain management Continue folic acid and consider Hydrea Hematology consultation if no improvement Sickle cell anemia Transfused 1 unit packed red blood cell H&H stable Community-acquired pneumonia Chest x-ray with possible left lower lobe infiltrate Continue Rocephin 1 g IV every 24 DVT prophylaxis: Ish Lopez MD Apr 22, 2017 11:41
[2017-04-22] MEDS ORDERED: FOLI1TAB6 PO (15:56)
[2017-04-22] MEDS ORDERED: AZIT250T3 PO (15:56)
--- NOTE | 2017-04-22 15:58 | HHI.PR ---
Addendum to Inpatient Note Addendum Reason: Additional Documentation Additional Information Patient's condition tremendously improved since morning round therefore he will be discharged home Ish Ospina MD Apr 22, 2017 15:58
--- NOTE | 2017-04-22 15:59 | HHI.DS ---
Discharge Summary Admission Date Apr 19, 2017 at 20:06 Discharge Date: Apr 23, 2017 Admitting Diagnosis Vasoocclusive crisis (1) Vaso-occlusive sickle cell crisis ICD Code: D57.00 - Hb-SS disease with crisis, unspecified Status: Acute (2) Sickle cell anemia ICD Code: D57.1 - Sickle-cell disease without crisis Procedures None Brief History - From Admission 27 year-old -[place] male with a history of sickle cell disease presented to the ED for evaluation of an acute onset of back, right hip as well as left hip pain since 10 AM yesterday. The pain is described as stabbing and radiated over 8 in intensity, not relief with current by mouth narcotics. Patient denies any chest pain. Denies any recent febrile episode or exposure to heat. His had multiple ED visit secondary to vaso-occlusive sickle cell crisis. During my exam, patient had one episode of emesis. He has no GI bleed however. CBC/BMP: 04/22/17 0720 04/22/17 0720 Significant Findings Laboratory Tests Test 04/19/17 16:37 04/20/17 06:49 04/21/17 01:30 04/21/17 01:35 Blood Urea Nitrogen 4 MG/DL (7-18) 6 MG/DL (7-18) Random Glucose 111 MG/DL (74-106) 107 MG/DL (74-106) Calcium Level 8.4 MG/DL (8.5-10.1) 7.9 MG/DL (8.5-10.1) 7.8 MG/DL (8.5-10.1) White Blood Count 11.5 TH/MM3 (4.0-11.0) Red Blood Count 2.25 MIL/MM3 (4.50-5.90) 2.10 MIL/MM3 (4.50-5.90) Hemoglobin 6.5 GM/DL (13.0-17.0) 5.9 GM/DL (13.0-17.0) Hematocrit 18.5 % (39.0-51.0) 17.1 % (39.0-51.0) Red Cell Distribution Width 22.1 % (11.6-17.2) 21.5 % (11.6-17.2) Neutrophils (%) (Auto) 84.2 % (16.0-70.0) 73.7 % (16.0-70.0) Lymphocytes (%) (Auto) 8.9 % (9.0-44.0) Neutrophils # (Auto) 9.7 TH/MM3 (1.8-7.7) Band Neutrophils % 20 % (0-6) 60 % (0-6) Lymphocytes % 8 % (9-44) Neutrophils # (Manual) 10.0 TH/MM3 (1.8-7.7) Nucleated Red Blood Cells 13 /100 WBC (0-0) 22 /100 WBC (0-0) Platelet Morphology Comment ENLARGED (NORMAL) Sickle Cells 2+ (NORMAL) 1+ (NORMAL) Target Cells 1+ (NORMAL) Aspartate Amino Transf (AST/SGOT) 105 U/L (15-37) Total Bilirubin 4.4 MG/DL (0.2-1.0) Chloride Level 110 MEQ/L (98-107) 110 MEQ/L (98-107) Monocytes (%) (Auto) 9.7 % (0.0-8.0) Monocytes # (Auto) 1.0 TH/MM3 (0-0.9) Neutrophils % (Manual) 13 % (16-70) Reticulocyte Count 14.2 % (0.4-3.0) Absolute Reticulocyte Count 297.5 MIL/L (20.0-150.0) Lactate Dehydrogenase 753 U/L (87-241) Potassium Level 3.1 MEQ/L (3.5-5.1) Test 04/21/17 06:15 04/21/17 17:28 04/22/17 07:20 Potassium Level 3.2 MEQ/L (3.5-5.1) 3.2 MEQ/L (3.5-5.1) White Blood Count 12.0 TH/MM3 (4.0-11.0) Red Blood Count 2.56 MIL/MM3 (4.50-5.90) Hemoglobin 7.2 GM/DL (13.0-17.0) Hematocrit 21.4 % (39.0-51.0) Red Cell Distribution Width 18.7 % (11.6-17.2) Eosinophils (%) (Auto) 6.1 % (0.0-4.0) Neutrophils # (Auto) 8.1 TH/MM3 (1.8-7.7) Eosinophils # (Auto) 0.7 TH/MM3 (0-0.4) Band Neutrophils % 8 % (0-6) Monocytes % 12 % (0-8) Nucleated Red Blood Cells 3 /100 WBC (0-0) Polychromasia 4.3 % (0.0-1.9) Sickle Cells 1+ (NORMAL) Target Cells 2+ (NORMAL) Blood Urea Nitrogen 2 MG/DL (7-18) Creatinine 0.47 MG/DL (0.60-1.30) Calcium Level 7.9 MG/DL (8.5-10.1) Chloride Level 108 MEQ/L (98-107) Imaging Last Impressions Chest X-Ray 04/21/17 0000 Signed Impressions: Service Date/Time: Friday, April 21, 2017 00:47 - CONCLUSION: Question airspace disease in the right lower lobe could be a small area of pneumonia. Jayden Springer MD PE at Discharge GENERAL: NAD SKIN: Warm and dry. HEAD: Normocephalic. EYES: No scleral icterus. No injection or drainage. NECK: Supple, trachea midline. No JVD or lymphadenopathy. CARDIOVASCULAR: Regular rate and rhythm without murmurs, gallops, or rubs. RESPIRATORY: Breath sounds equal bilaterally. No accessory muscle use. GASTROINTESTINAL: Abdomen soft, non-tender, nondistended. MUSCULOSKELETAL: No cyanosis, or edema. BACK: Nontender without obvious deformity. No CVA tenderness. Hospital Course Patient admitted secondary to sickle cell crisis for which he was started on parenteral pain medication as well as folic acid and aggressive fluid resuscitation. He was transfused 1 unit packed red blood cell for sickle cell anemia with improvement of H&H. He was also started on IV Rocephin for community acquired pneumonia. Prior to discharge, patient conditions improved and vitals remained stable Pt Condition on Discharge: Stable Discharge Disposition: Discharge Home Discharge Time: <= 30 minutes Discharge Instructions DIET: Follow Instructions for: Heart Healthy Diet Activities you can perform: Regular-No Restrictions Follow up Referrals: PCP Follow-up - 1 Week New Medications: Azithromycin (Azithromycin) 250 Mg Tab 250 MG PO DAILY for Infection, #4 TAB 0 Refills Hydrocodone-Acetaminophen (Lortab) 10-325 Mg Tab 1 TAB PO Q6H PRN for PAIN, #20 TAB 0 Refills Folic Acid (Folic Acid) 1 Mg Tablet 1 MG PO DAILY for Immunosuppression, #30 MG Continued Medications: Hydrocodone-Acetaminophen (Lortab) 10-325 Mg Tab 1 TAB PO Q6H PRN for PAIN, #10 TAB 0 Refills Ish Ospina MD Apr 22, 2017 15:59
[2017-04-23] VITALS: BP 129/61; PULSE 67; RESP 18; TEMP 98.1; O2SAT 100
[2017-04-23] MEDS: cefTRIAXone INJ 1,000 MG in SODIUM CHLORIDE 0.9% INJ 100 ML IV SCH (01:00)
[2017-04-23] MEDS: HYDROmorphone HCL PF 1 MG/ML VIAL IV PUSH PRN ×2 (02:22→09:24)
[2017-04-23 04:00] VITALS: BP 95/53; PULSE 60; RESP 18; TEMP 98.1; O2SAT 98
[2017-04-23] MEDS: SODIUM CHLOR 0.9% 1000 ML INJ 1,000 ML IV SCH (06:16)
[2017-04-23 08:00] VITALS: BP 119/47; PULSE 64; RESP 16; TEMP 97.6; O2SAT 100
[2017-04-23 08:20] VITALS: PULSE 100
[2017-04-23] MEDS ORDERED: HYDR-3535 PO (08:28)
[2017-04-23] MEDS: LACTOBACILLUS ACIDOPHILUS TAB PO SCH (09:00)
[2017-04-23] MEDS: FOLIC ACID 1 MG TAB PO SCH (09:22)
[2017-04-23] MEDS: SODIUM CHLORIDE 0.9% FLUSH 10 ML FLUSH IV FLUSH SCH (09:22)
--- NOTE | 2017-04-23 09:44 | HHI.PR ---
Subjective Remarks Follow-up vaso-occlusive crisis/sickle cell anemia/community-acquired pneumonia 04/21/17-patient seen and examined reports some improvement of sickle cell pain to right hip and left knee however the pain is down to 6. No more emesis. Afebrile. 04/22/17-patient seen and examined, the pain has improved now down to 5 and mainly located to his hips as well as his back. Afebrile. Tolerated by mouth without any competition nausea and vomiting 04/23/17-patient seen and examined, pain much more improved since admission, now ready for discharge. Apologized for his actions, states he didn't mean to be rude on admission toward staff Objective Vitals Vital Signs Date Time Temp Pulse Resp B/P (MAP) Pulse Ox O2 Delivery O2 Flow Rate FiO2 04/23/17 07:15 Room Air 04/23/17 04:00 98.1 60 18 95/53 (67) 98 04/23/17 00:00 98.1 67 18 129/61 (83) 100 04/22/17 20:00 98.3 65 18 112/57 (75) 99 04/22/17 20:00 59 04/22/17 19:00 Room Air 04/22/17 16:00 98.2 64 16 105/54 (71) 97 04/22/17 12:00 98.2 62 18 116/57 (76) 98 I/O 04/22/17 04/22/17 04/22/17 04/23/17 04/23/17 04/23/17 07:00 15:00 23:00 07:00 15:00 23:00 Intake Total 1720 ml 2263 ml 2383 ml Output Total 1100 ml 300 ml 2050 ml Balance 620 ml 1963 ml 333 ml Intake Oral 620 ml 360 ml 480 ml IV Total 1100 ml 1903 ml 1903 ml Output Urine Total 1100 ml 300 ml 2050 ml # Bowel Movements 3 1 Result Diagram: 04/22/1771904/22/17719 Objective Remarks GENERAL: NAD SKIN: Warm and dry. HEAD: Normocephalic. EYES: No scleral icterus. No injection or drainage. NECK: Supple, trachea midline. No JVD or lymphadenopathy. CARDIOVASCULAR: Regular rate and rhythm without murmurs, gallops, or rubs. RESPIRATORY: Breath sounds equal bilaterally. No accessory muscle use. GASTROINTESTINAL: Abdomen soft, non-tender, nondistended. MUSCULOSKELETAL: No cyanosis, or edema. BACK: Nontender without obvious deformity. No CVA tenderness. Procedures None A/P Problem List: (1) Vaso-occlusive sickle cell crisis ICD Code: D57.00 - Hb-SS disease with crisis, unspecified Status: Acute (2) Sickle cell anemia ICD Code: D57.1 - Sickle-cell disease without crisis Assessment and Plan 27 year-old man with Vaso-occlusive sickle cell crisis-improving Continue Aggressive IV fluid resuscitation Continue Parenteral Pain management Continue folic acid and consider Hydrea Hematology consultation if no improvement Sickle cell anemia Transfused 1 unit packed red blood cell H&H stable Community-acquired pneumonia Chest x-ray with possible left lower lobe infiltrate Continue Rocephin 1 g IV every 24 DVT prophylaxis: Lovenox Problem Qualifiers (1) Sickle cell anemia: Qualified Codes: D57.00 - Hb-SS disease with crisis, unspecified Ish Ospina MD Apr 23, 2017 09:44
== END 2017-04-23 10:47 | disposition home or self-care (01) | DRG 811 ==
LOC: NEPD 14:20 → OBSVTOIN 20:06 → NEDA 20:06 → N04A 21:13
PROVIDERS: ADMIT Hospitalist; ATTEND Hospitalist
PROC: 30233N1 Transfusion of Nonautologous Red Blood Cells into Peripheral Vein, Percutaneous Approach (ICD-10-PCS; principal; 2017-04-21)
DX: D57.00 Hb-SS disease with crisis, unspecified (principal); J18.9 Pneumonia, unspecified organism
CPT/HCPCS: 36430; 71010; 80048; 80053; 83615; 84132; 85007; 85027; 85044; 86850; 86900; 86901; 86920; 87040; 87493; 87506; 87641; 96361; 96374; 96375; 96376; J0696; J1170; J2405; J3480; J7030; J7050; P9016

== ENCOUNTER 2017-12-08 03:55 | Emergency (ER) | payer MEDICARE ==
[~2017-12-08] VITALS: Ht 165.1 cm; Wt 55.0 kg
[~2017-12-08 03:55] MED LIST changes: +AZIT250T3 PO; +FOLI1TAB6 PO
[2017-12-08 03:57] VITALS: BP 115/57; PULSE 100; RESP 18; TEMP 98.3; O2SAT 94
[2017-12-08] MEDS ORDERED: SODIUM CHLOR 0.9% 1000 ML INJ 1,000 ML IV ONE (04:09)
[2017-12-08] MEDS ORDERED: HYDROmorphone HCL PF 2 MG/ML VIAL IV PUSH ONE ×3 (04:15→08:30)
[2017-12-08] MEDS ORDERED: SODIUM CHLORIDE 0.9% FLUSH 10 ML FLUSH IVF PRN (04:15)
[2017-12-08] MEDS ORDERED: diphenhydrAMINE HCL 50 MG/ML VIAL IV PUSH ONE ×2 (04:15→06:00)
[2017-12-08] MEDS ORDERED: ONDANSETRON HCL 4 MG/2 ML VIAL IVP ONE ×2 (04:15→06:00)
[2017-12-08 04:26] VITALS: BP 158/69; PULSE 90; RESP 16; O2SAT 95
--- NOTE | 2017-12-08 04:41 | RADRPT ---
EXAM DATE/TIME: 12/08/2017 04:12 [facility] COMPARISON: CHEST SINGLE AP, April 21, 2017, 0:47. INDICATIONS : Sickle cell crisis. MEDICAL HISTORY : Sickle Cell disease. SURGICAL HISTORY : Cholecystectomy. ENCOUNTER: Initial ACUITY: 1 day PAIN SCORE: 10/10 LOCATION: Bilateral chest FINDINGS: A single view of the chest demonstrates the lungs to be symmetrically aerated without evidence of mas s, infiltrate or effusion. The cardiomediastinal contours are stable. Osseous structures are intact . CONCLUSION: No acute disease. Ashwin Albarran MD on December 08, 2017 at 4:37 Board Certified Radiologist. This report was verified electronically.
--- NOTE | 2017-12-08 05:44 | PD ---
HPI Chief Complaint: Sickle Cell Time Seen by Provider: 04:09 Travel History International Travel<30 days: No Contact w/Intl Traveler<30days: No Traveled to known affect area: No History of Present Illness HPI 27-year-old male arrives complaining of pain in the arms bilaterally. Patient reports pain to be consistent with sickle cell crisis pain. Typically he has pain in the lower back and the hips. He denies shortness of breath fever and chest pain. No vomiting. He reports suffering with a sickle cell crisis about once every 2 months. Onset gradual. Duration about 1 hour. PFSH Past Medical History Anemia: Yes (SICKLE CELL ANEMIA) Asthma: Yes Blood Disorders: Yes (Sickle Cell Disease) Anxiety: No Depression: No Cancer: No Cardiovascular Problems: No Diabetes: No Diminished Hearing: No Endocrine: No Gastrointestinal Disorders: Yes (cholecystectomy 2012) Genitourinary: No Immune Disorder: No Implanted Vascular Access Dvce: No Musculoskeletal: No Neurologic: No Psychiatric: No Reproductive: No Respiratory: Yes Immunizations Current: Yes Sickle Cell Disease: Yes PNEUMOCCOCAL Vaccine (Year): 2 Past Surgical History Cholecystectomy: Yes Other Surgery: Yes (cholecystectomy ) Social History Alcohol Use: No Tobacco Use: No Substance Use: No (DENIES: HX weed daily) Allergies-Medications (Allergen,Severity, Reaction): Coded Allergies: No Known Allergies (Verified Adverse Reaction, Unknown, 12/08/17) Reported Meds & Prescriptions Reported Meds & Active Scripts Active Lortab (Hydrocodone-Acetaminophen) 10-325 Mg Tab 1 Tab PO Q6H PRN Azithromycin 250 Mg Tab 250 Mg PO DAILY Folic Acid 1 Mg Tablet 1 Mg PO DAILY Lortab (Hydrocodone-Acetaminophen) 10-325 Mg Tab 1 Tab PO Q6H PRN Review of Systems Except as stated in HPI: all other systems reviewed are Neg General / Constitutional: No: Fever Physical Exam Narrative GENERAL: 27-year-old male pleasant well-nourished well-developed Vital Signs Date Time Temp Pulse Resp B/P (MAP) Pulse Ox O2 Delivery O2 Flow Rate FiO2 12/08/17 04:26 90 16 158/69 (98) 95 Room Air 12/08/17 03:57 98.3 100 18 115/57 (76) 94 SKIN: Warm and dry. HEAD: Atraumatic. Normocephalic. EYES: Pupils equal and round. No scleral icterus. No injection or drainage. ENT: No nasal bleeding or discharge. Mucous membranes pink and moist. NECK: Trachea midline. No JVD. CARDIOVASCULAR: Regular rate and rhythm. RESPIRATORY: No accessory muscle use. Clear to auscultation. Breath sounds equal bilaterally. GASTROINTESTINAL: Abdomen soft, non-tender, nondistended. Hepatic and splenic margins not palpable. MUSCULOSKELETAL: Extremities without clubbing, cyanosis, or edema. No obvious deformities. NEUROLOGICAL: Awake and alert. No obvious cranial nerve deficits. Motor grossly within normal limits. Five out of 5 muscle strength in the arms and legs. Normal speech. PSYCHIATRIC: Appropriate mood and affect; insight and judgment normal. Data Data Last Documented VS Vital Signs Date Time Temp Pulse Resp B/P (MAP) Pulse Ox O2 Delivery O2 Flow Rate FiO2 12/08/17 05:54 96 16 117/56 (76) 90 Room Air 12/08/17 03:57 98.3 Orders Orders Complete Blood Count With Diff (12/08/17 04:09) Comprehensive Metabolic Panel (12/08/17 04:09) Retic Count (12/08/17 04:09) Urinalysis - C+S If Indicated (12/08/17 04:09) Chest, Single Ap (12/08/17 04:09) Ecg Monitoring (12/08/17 04:09) Iv Access Insert/Monitor (12/08/17 04:09) Oximetry (12/08/17 04:09) Ondansetron Inj (Zofran Inj) (12/08/17 04:15) Sodium Chloride 0.9% Flush (Ns Flush) (12/08/17 04:15) Sodium Chlor 0.9% 1000 Ml Inj (Ns 1000 M (12/08/17 04:09) Diphenhydramine Inj (Benadryl Inj) (12/08/17 04:15) Hydromorphone Pf Inj (Dilaudid Pf Inj) (12/08/17 04:15) Ondansetron Inj (Zofran Inj) (12/08/17 06:00) Diphenhydramine Inj (Benadryl Inj) (12/08/17 06:00) Hydromorphone Pf Inj (Dilaudid Pf Inj) (12/08/17 06:00) Labs Laboratory Tests Test 12/08/17 04:24 MDM Medical Decision Making Medical Screen Exam Complete: Yes Emergency Medical Condition: Yes Medical Record Reviewed: Yes Differential Diagnosis Anemia, pneumonia, dehydration Narrative Course CXR: NACPD Marginal improvement obtained after hydromorphone and Benadryl. Case discussed with oncoming provider. Reassess patient. Follow-up blood work. Disposition pending the above. Diagnosis Primary Impression: Sickle cell crisis Referrals: Coy Canseco MD call for appointment Disposition: DISCHARGE HOME Condition: Stable Sharath Tijerina MD Dec 08, 2017 05:44
[2017-12-08 05:54] VITALS: BP 117/56; PULSE 96; RESP 16; O2SAT 90
[2017-12-08 06:48] LABS: AUTOMATED NEUTROPHIL # 8.9 TH/MM3 (1.8-7.7); BASOPHIL # 0.1 TH/MM3 (0-0.2); BASOPHIL % 0.8 % (0.0-2.0); EOSINOPHIL # 0.6 TH/MM3 (0-0.4); EOSINOPHIL % 3.9 % (0.0-4.0); HEMATOCRIT 24.4 % (39.0-51.0); HEMOGLOBIN 8.6 GM/DL (13.0-17.0); LYMPHOCYTE # 3.9 TH/MM3 (1.0-4.8); MEAN CELL VOLUME 82.4 FL (80.0-100.0); MEAN CORPUSCULAR HEMOGLOBIN 28.9 PG (27.0-34.0); MEAN CORPUSCULAR HGB CONC 35.1 % (32.0-36.0); MEAN PLATELET VOLUME 9.9 FL (7.0-11.0); MONO % 9.4 % (0.0-8.0); MONOCYTE # 1.4 TH/MM3 (0-0.9); NEUT % 59.9 % (16.0-70.0); PLATELET COUNT 282 TH/MM3 (150-450); RED BLOOD COUNT 2.97 MIL/MM3 (4.50-5.90); RED CELL DISTRIBUTION WIDTH 23.4 % (11.6-17.2); RETIC # 443.2 MIL/L (20.0-150.0); RETIC % 14.9 % (0.4-3.0); WHITE BLOOD COUNT 14.9 TH/MM3 (4.0-11.0)
[2017-12-08 07:15] LABS: ALKALINE PHOSPHATASE 99 U/L (45-117); TOTAL BILIRUBIN ADULT 5.6 MG/DL (0.2-1.0); TOTAL PROTEIN 7.7 GM/DL (6.4-8.2)
[2017-12-08 07:35] VITALS: BP 95/50; PULSE 86; RESP 24; O2SAT 97
[2017-12-08 07:42] LABS: ALBUMIN 4.2 GM/DL (3.4-5.0); ALT (GPT) 27 U/L (12-78); AST (GOT) 51 U/L (15-37); BICARBONATE 29.5 MEQ/L (21.0-32.0); BLOOD UREA NITROGEN 6 MG/DL (7-18); CALCIUM 8.7 MG/DL (8.5-10.1); CHLORIDE 107 MEQ/L (98-107); CREATININE 0.78 MG/DL (0.60-1.30); GLOMERULAR FILTRATION RATE 144 ML/MIN (>89); GLUCOSE,RANDOM 73 MG/DL (74-106); SODIUM (NA) 142 MEQ/L (136-145)
[2017-12-08 07:43] LABS: BANDS 4 % (0-6); BASOPHILS 3 % (0-2); CORRECTED NUCLEATED RBC 5 /100 WBC (0-0); LYMPHOCYTES 18 % (9-44); MONOCYTES 8 % (0-8); NEUTROPHIL # MANUAL DIFF 9.8 TH/MM3 (1.8-7.7); NUCLEATED RED BLOOD CELL 5 (0-0); POLYS (SEG NEUTROPHILS) 62 % (16-70); SICKLE CELLS 2+ (NORMAL)
[2017-12-08 07:44] LABS: TARGET CELLS 1+ (NORMAL)
[2017-12-08 07:45] LABS: POLYCHROMASIA 2.1 % (0.0-1.9)
[2017-12-08 07:59] LABS: BILIRUBIN, URINE NEG (NEG); BLOOD, URINE SMALL (NEG); GLUCOSE,URINE NEG (NEG); KETONE, URINE NEG (NEG); MUCUS URINE FEW /lpf (OCC); NITRITE,URINE NEG (NEG); URINE COLOR YELLOW (YELLW/STRAW); URINE LEUKOCYTE ESTERASE NEG (NEG)
[2017-12-08] MEDS ORDERED: KETOROLAC TROMETHAMINE 30 MG/ML (IVP) VIAL IV PUSH ONE (08:15)
[2017-12-08] MEDS ORDERED: HYDROmorphone HCL PF 1 MG/ML VIAL IV PUSH ONE (08:15)
[2017-12-08 08:30] VITALS: BP 121/62; PULSE 70; RESP 17; O2SAT 95
--- NOTE | 2017-12-08 09:51 | PD ---
Physical Exam Narrative Patient signed out to me by Dr. Tijerina. Please see his documentation for complete details. Briefly, patient is a 27 year old male with history of sickle cell disease, who comes in complaining of pain to his arms. He says this is abnormal for him as he usually has pain in his legs or hips. He has not had fevers. He denies injuries. He received 2 rounds of pain medicine from Dr. Tijerina. On reassessment, he still complains of pain. Data Data Last Documented VS Vital Signs Date Time Temp Pulse Resp B/P (MAP) Pulse Ox O2 Delivery O2 Flow Rate FiO2 12/08/17 08:30 70 17 121/62 (81) 95 Room Air 12/08/17 03:57 98.3 Orders Orders Complete Blood Count With Diff (12/08/17 04:09) Comprehensive Metabolic Panel (12/08/17 04:09) Retic Count (12/08/17 04:09) Urinalysis - C+S If Indicated (12/08/17 04:09) Chest, Single Ap (12/08/17 04:09) Ecg Monitoring (12/08/17 04:09) Iv Access Insert/Monitor (12/08/17 04:09) Oximetry (12/08/17 04:09) Ondansetron Inj (Zofran Inj) (12/08/17 04:15) Sodium Chloride 0.9% Flush (Ns Flush) (12/08/17 04:15) Sodium Chlor 0.9% 1000 Ml Inj (Ns 1000 M (12/08/17 04:09) Diphenhydramine Inj (Benadryl Inj) (12/08/17 04:15) Hydromorphone Pf Inj (Dilaudid Pf Inj) (12/08/17 04:15) Ondansetron Inj (Zofran Inj) (12/08/17 06:00) Diphenhydramine Inj (Benadryl Inj) (12/08/17 06:00) Hydromorphone Pf Inj (Dilaudid Pf Inj) (12/08/17 06:00) Ketorolac Inj (Toradol Inj) (12/08/17 08:15) Hydromorphone Pf Inj (Dilaudid Pf Inj) (12/08/17 08:30) Labs Laboratory Tests Test 12/08/17 04:24 12/08/17 07:30 White Blood Count 14.9 TH/MM3 Red Blood Count 2.97 MIL/MM3 Hemoglobin 8.6 GM/DL Hematocrit 24.4 % Mean Corpuscular Volume 82.4 FL Mean Corpuscular Hemoglobin 28.9 PG Mean Corpuscular Hemoglobin Concent 35.1 % Red Cell Distribution Width 23.4 % Platelet Count 282 TH/MM3 Mean Platelet Volume 9.9 FL Neutrophils (%) (Auto) 59.9 % Lymphocytes (%) (Auto) 26.0 % Monocytes (%) (Auto) 9.4 % Eosinophils (%) (Auto) 3.9 % Basophils (%) (Auto) 0.8 % Neutrophils # (Auto) 8.9 TH/MM3 Lymphocytes # (Auto) 3.9 TH/MM3 Monocytes # (Auto) 1.4 TH/MM3 Eosinophils # (Auto) 0.6 TH/MM3 Basophils # (Auto) 0.1 TH/MM3 CBC Comment AUTO DIFF Differential Total Cells Counted 100 Neutrophils % (Manual) 62 % Band Neutrophils % 4 % Lymphocytes % 18 % Monocytes % 8 % Eosinophils % 5 % Basophils % 3 % Neutrophils # (Manual) 9.8 TH/MM3 Nucleated Red Blood Cells 5 /100 WBC Differential Comment FINAL DIFF MANUAL Platelet Estimate NORMAL Platelet Morphology Comment ENLARGED Polychromasia 2.1 % Sickle Cells 2+ Target Cells 1+ Reticulocyte Count 14.9 % Absolute Reticulocyte Count 443.2 MIL/L Blood Urea Nitrogen 6 MG/DL Creatinine 0.78 MG/DL Random Glucose 73 MG/DL Total Protein 7.7 GM/DL Albumin 4.2 GM/DL Calcium Level 8.7 MG/DL Alkaline Phosphatase 99 U/L Aspartate Amino Transf (AST/SGOT) 51 U/L Alanine Aminotransferase (ALT/SGPT) 27 U/L Total Bilirubin 5.6 MG/DL Sodium Level 142 MEQ/L Potassium Level 3.6 MEQ/L Chloride Level 107 MEQ/L Carbon Dioxide Level 29.5 MEQ/L Anion Gap 6 MEQ/L Estimat Glomerular Filtration Rate 144 ML/MIN Urine Color YELLOW Urine Turbidity CLEAR Urine pH 7.0 Urine Specific Warren 1.004 Urine Protein NEG mg/dL Urine Glucose (UA) NEG mg/dL Urine Ketones NEG mg/dL Urine Occult Blood SMALL Urine Nitrite NEG Urine Bilirubin NEG Urine Urobilinogen LESS THAN 2.0 MG/DL Urine Leukocyte Esterase NEG Urine WBC 3 /hpf Urine Mucus FEW /lpf Microscopic Urinalysis Comment CULT NOT INDICATED MDM Supervised Visit with CARLOS: No Narrative Course Labs show Hgb of 8.6, appropriately elevated reticulocyte count. total bilirubin is elevated, but has been elevated in the past. Given additional pain medicine. Patient offered admission, but he would like to go home. Advised to follow up with hematology. Advised to return to the ED as needed for any worsening symptoms. Diagnosis Primary Impression: Sickle cell crisis Referrals: Coy Canseco MD call for appointment Additional Instruction: Follow up with a drafter apprentice. Drink plenty of water. Take pain medicine as needed. Return to the ED as needed for any worsening symptoms. Disposition: 01 DISCHARGE HOME Condition: Stable Taylor Swift MD Dec 08, 2017 09:51
[2017-12-09] MEDS ORDERED: PERC5TAB12 PO (04:35)
== END 2017-12-08 10:19 | disposition home or self-care (01) ==
LOC: NEPE 03:55
DX: D57.00 Hb-SS disease with crisis, unspecified (principal); J45.909 Unspecified asthma, uncomplicated; Z90.49 Acquired absence of other specified parts of digestive tract
CPT/HCPCS: 71045; 80053; 81001; 85007; 85027; 85044; 96374; 96375; 96376; 99284; J1170; J1200; J1885; J2405; J7030

== ENCOUNTER 2017-12-08 22:29 | Emergency (ER) | payer MEDICARE ==
[2017-12-08 22:32] VITALS: BP 133/60; PULSE 68; RESP 16; O2SAT 95
[2017-12-08] MEDS ORDERED: SODIUM CHLOR 0.9% 1000 ML INJ 1,000 ML IV ONE (23:06)
[2017-12-08] MEDS ORDERED: HYDROmorphone HCL PF 2 MG/ML VIAL IVS ONE (23:15)
[2017-12-08] MEDS ORDERED: SODIUM CHLORIDE 0.9% FLUSH 10 ML FLUSH IVF PRN (23:15)
[2017-12-08] MEDS ORDERED: ONDANSETRON HCL 4 MG/2 ML VIAL IVP ONE (23:15)
[2017-12-08] MEDS ORDERED: diphenhydrAMINE HCL 50 MG/ML VIAL IV PUSH ONE (23:15)
[2017-12-08 23:50] LABS: AUTOMATED NEUTROPHIL # 6.7 TH/MM3 (1.8-7.7); BASOPHIL # 0.1 TH/MM3 (0-0.2); BASOPHIL % 1.1 % (0.0-2.0); EOSINOPHIL # 0.7 TH/MM3 (0-0.4); EOSINOPHIL % 5.5 % (0.0-4.0); HEMATOCRIT 23.7 % (39.0-51.0); HEMOGLOBIN 8.5 GM/DL (13.0-17.0); LYMPH % 27.3 % (9.0-44.0); LYMPHOCYTE # 3.3 TH/MM3 (1.0-4.8); MEAN CELL VOLUME 81.1 FL (80.0-100.0); MEAN CORPUSCULAR HEMOGLOBIN 29.3 PG (27.0-34.0); MEAN PLATELET VOLUME 9.5 FL (7.0-11.0); MONO % 9.7 % (0.0-8.0); MONOCYTE # 1.2 TH/MM3 (0-0.9); NEUT % 56.4 % (16.0-70.0); PLATELET COUNT 265 TH/MM3 (150-450); RED BLOOD COUNT 2.92 MIL/MM3 (4.50-5.90); RETIC # 378.3 MIL/L (20.0-150.0); WHITE BLOOD COUNT 11.9 TH/MM3 (4.0-11.0)
[2017-12-08 23:56] LABS: MEAN CORPUSCULAR HGB CONC 36.1 % (32.0-36.0)
[2017-12-09 00:03] LABS: BICARBONATE 27.6 MEQ/L (21.0-32.0); CREATININE 0.84 MG/DL (0.60-1.30)
--- NOTE | 2017-12-09 00:19 | RADRPT ---
EXAM DATE/TIME: 12/09/2017 00:00 [facility] COMPARISON: CHEST SINGLE AP, December 08, 2017, 4:12. INDICATIONS : Sickle cell crisis. MEDICAL HISTORY : Sickle Cell disease. SURGICAL HISTORY : Cholecystectomy. ENCOUNTER: Subsequent ACUITY: 2 days PAIN SCORE: 10/10 LOCATION: Bilateral chest FINDINGS: A single view of the chest demonstrates the lungs to be symmetrically aerated without evidence of mas s, infiltrate or effusion. The cardiomediastinal contours are unremarkable. Osseous structures are intact. CONCLUSION: 1. No acute cardiopulmonary disease. Meño Toledo MD on December 09, 2017 at 0:17 Board Certified Radiologist. This report was verified electronically.
--- NOTE | 2017-12-09 00:22 | PD ---
HPI Chief Complaint: Sickle Cell Time Seen by Provider: 22:52 Travel History International Travel<30 days: No Contact w/Intl Traveler<30days: No Traveled to known affect area: No History of Present Illness HPI The patient is 27 years old. He has a history of sickle cell disease. He was seen here about 18 hours ago and was discharged home. He reports attempting to sleep upon arrival home and was able sleep for a few hours before being woken up by pain. Similar process occurred several times over the course of the day and he eventually returned due to persistent pain. Again the pain is in the bilateral arms from the wrist to the elbows. He has no shortness of breath or chest pain. He denies fever. Timing constant. PFSH Past Medical History Anemia: Yes (SICKLE CELL ANEMIA) Asthma: Yes Blood Disorders: Yes (Sickle Cell Disease) Anxiety: No Depression: No Cancer: No Cardiovascular Problems: No Diabetes: No Diminished Hearing: No Endocrine: No Gastrointestinal Disorders: Yes (cholecystectomy 2012) Genitourinary: No Immune Disorder: No Implanted Vascular Access Dvce: No Musculoskeletal: No Neurologic: No Psychiatric: No Reproductive: No Respiratory: Yes Immunizations Current: Yes Sickle Cell Disease: Yes PNEUMOCCOCAL Vaccine (Year): 2 Past Surgical History Cholecystectomy: Yes Other Surgery: Yes (cholecystectomy ) Social History Alcohol Use: No Tobacco Use: No Substance Use: No (HX weed daily) Allergies-Medications (Allergen,Severity, Reaction): Coded Allergies: No Known Allergies (Verified Allergy, Unknown, 12/08/17) Reported Meds & Prescriptions Reported Meds & Active Scripts Active Percocet (Oxycodone-Acetaminophen) 5-325 mg Tab 1-2 Tab PO Q6H PRN Folic Acid 1 Mg Tablet 1 Mg PO DAILY Review of Systems Except as stated in HPI: all other systems reviewed are Neg General / Constitutional: No: Fever Physical Exam Narrative GENERAL: 19-year-old male pleasant well-nourished well-developed moderate distress secondary to pain Vital Signs Date Time Temp Pulse Resp B/P (MAP) Pulse Ox O2 Delivery O2 Flow Rate FiO2 12/08/17 22:32 68 16 133/60 (84) 95 SKIN: Warm and dry. HEAD: Atraumatic. Normocephalic. EYES: Pupils equal and round. No scleral icterus. No injection or drainage. ENT: No nasal bleeding or discharge. Mucous membranes pink and moist. NECK: Trachea midline. No JVD. CARDIOVASCULAR: Regular rate and rhythm. RESPIRATORY: No accessory muscle use. Clear to auscultation. Breath sounds equal bilaterally. GASTROINTESTINAL: Abdomen soft, non-tender, nondistended. Hepatic and splenic margins not palpable. MUSCULOSKELETAL: Extremities without clubbing, cyanosis, or edema. No obvious deformities. NEUROLOGICAL: Awake and alert. No obvious cranial nerve deficits. Motor grossly within normal limits. Five out of 5 muscle strength in the arms and legs. Normal speech. PSYCHIATRIC: Appropriate mood and affect; insight and judgment normal. Data Data Last Documented VS Vital Signs Date Time Temp Pulse Resp B/P (MAP) Pulse Ox O2 Delivery O2 Flow Rate FiO2 12/09/17 05:37 73 16 108/53 (71) 100 Nasal Cannula 2.00 12/09/17 00:33 98.1 Orders Orders Basic Metabolic Panel (Bmp) (12/08/17 23:06) Complete Blood Count With Diff (12/08/17 23:06) Retic Count (12/08/17 23:06) Chest, Single Ap (12/08/17 23:06) Ecg Monitoring (12/08/17 23:06) Iv Access Insert/Monitor (12/08/17 23:06) Oximetry (12/08/17 23:06) Hydromorphone Pf Inj (Dilaudid Pf Inj) (12/08/17 23:15) Ondansetron Inj (Zofran Inj) (12/08/17 23:15) Sodium Chloride 0.9% Flush (Ns Flush) (12/08/17 23:15) Sodium Chlor 0.9% 1000 Ml Inj (Ns 1000 M (12/08/17 23:06) Diphenhydramine Inj (Benadryl Inj) (12/08/17 23:15) Sodium Chloride 0.9% Flush (Ns Flush) (12/09/17 00:45) Sodium Chlor 0.9% 1000 Ml Inj (Ns 1000 M (12/09/17 00:43) Diphenhydramine Inj (Benadryl Inj) (12/09/17 00:45) Hydromorphone Pf Inj (Dilaudid Pf Inj) (12/09/17 00:45) Ketamine Inj (Ketalar Inj) (12/09/17 02:05) Ketorolac Inj (Toradol Inj) (12/09/17 05:30) Ondansetron Inj (Zofran Inj) (12/09/17 05:30) Sodium Chlor 0.9% 1000 Ml Inj (Ns 1000 M (12/09/17 05:23) Diphenhydramine Inj (Benadryl Inj) (12/09/17 05:30) Hydromorphone Pf Inj (Dilaudid Pf Inj) (12/09/17 05:30) Labs Laboratory Tests Test 12/08/17 23:32 White Blood Count 11.9 TH/MM3 Red Blood Count 2.92 MIL/MM3 Hemoglobin 8.5 GM/DL Hematocrit 23.7 % Mean Corpuscular Volume 81.1 FL Mean Corpuscular Hemoglobin 29.3 PG Mean Corpuscular Hemoglobin Concent 36.1 % Red Cell Distribution Width 24.0 % Platelet Count 265 TH/MM3 Mean Platelet Volume 9.5 FL Neutrophils (%) (Auto) 56.4 % Lymphocytes (%) (Auto) 27.3 % Monocytes (%) (Auto) 9.7 % Eosinophils (%) (Auto) 5.5 % Basophils (%) (Auto) 1.1 % Neutrophils # (Auto) 6.7 TH/MM3 Lymphocytes # (Auto) 3.3 TH/MM3 Monocytes # (Auto) 1.2 TH/MM3 Eosinophils # (Auto) 0.7 TH/MM3 Basophils # (Auto) 0.1 TH/MM3 CBC Comment AUTO DIFF Differential Total Cells Counted 100 Neutrophils % (Manual) 36 % Lymphocytes % 55 % Monocytes % 6 % Eosinophils % 2 % Basophils % 1 % Neutrophils # (Manual) 4.3 TH/MM3 Nucleated Red Blood Cells 10 /100 WBC Differential Comment FINAL DIFF MANUAL Platelet Estimate NORMAL Platelet Morphology Comment ENLARGED Basophilic Stippling FAINT Spherocytes OCC Sickle Cells 3+ Target Cells 1+ Ovalocytes 1+ [place] Bodies PRESENT Reticulocyte Count 13.0 % Absolute Reticulocyte Count 378.3 MIL/L Blood Urea Nitrogen 6 MG/DL Creatinine 0.84 MG/DL Random Glucose 83 MG/DL Calcium Level 8.0 MG/DL Sodium Level 145 MEQ/L Potassium Level 4.0 MEQ/L Chloride Level 112 MEQ/L Carbon Dioxide Level 27.6 MEQ/L Anion Gap 5 MEQ/L Estimat Glomerular Filtration Rate 132 ML/MIN MDM Medical Decision Making Medical Screen Exam Complete: Yes Emergency Medical Condition: Yes Medical Record Reviewed: Yes Differential Diagnosis Anemia, septic arthritis, bone infarct, chronic pain Narrative Course CBC & BMP Diagram 12/08/17 23:32 Calcium Level 8.0 L Smear reveals sickle cells Patient has received Dilaudid and Benadryl and Zofran once and then again a second time about an hour and half after. The patient was reassessed and reported persistent pain and 10 mg ketamine given which provided about 3 hours with the pain relief. We will continue to monitor and if possible discharge the patient home depending on how effective ketamine is. Pt has rested comfortably in ED since administration of ketamine. We will discharge home. Critical Care Narrative Aggregate critical care time was 50 minutes. Time to perform other separately billable procedures was not included in the critical care time. My time did not include minutes spent treating any other patients simultaneously or on activities that did not directly contribute to the patient's treatment. The services I provided to this patient were to treat and/or prevent clinically significant deterioration that could result in: Intractable pain, pain and suffering I provided critical care services requiring my management, as noted below: Chart data review, documentation time, medication orders and management, vital sign assessments/reviewing monitor data, ordering and reviewing lab tests, ordering and interpreting/reviewing x-rays and diagnostic studies, care of the patient and discussion of the patient with the admitting physicians. Diagnosis Primary Impression: Sickle cell anemia Qualified Codes: D57.00 - Hb-SS disease with crisis, unspecified Referrals: Dominic Land MD 2 days Med/Other Pt SpecificInfo: Prescription(s) given Scripts Oxycodone-Acetaminophen (Percocet) 5-325 mg Tab 1-2 TAB PO Q6H Y for PAIN SCALE 6 TO 10, #15 TAB 0 Refills Prov: Sharath Tijerina MD 12/09/17 Disposition: 01 DISCHARGE HOME Condition: Stable Sharath Tijerina MD Dec 09, 2017 00:22
[2017-12-09 00:33] VITALS: TEMP 98.1
[2017-12-09] MEDS ORDERED: SODIUM CHLOR 0.9% 1000 ML INJ 1,000 ML IV ONE ×2 (00:43→05:23)
[2017-12-09] MEDS ORDERED: HYDROmorphone HCL PF 2 MG/ML VIAL IV PUSH ONE ×2 (00:45→05:30)
[2017-12-09] MEDS ORDERED: diphenhydrAMINE HCL 50 MG/ML VIAL IV PUSH ONE ×2 (00:45→05:30)
[2017-12-09] MEDS ORDERED: SODIUM CHLORIDE 0.9% FLUSH 10 ML FLUSH IVF PRN (00:45)
[2017-12-09 01:04] LABS: BASOPHILS 1 % (0-2); CORRECTED NUCLEATED RBC 10 /100 WBC (0-0); LYMPHOCYTES 55 % (9-44); MONOCYTES 6 % (0-8); NEUTROPHIL # MANUAL DIFF 4.3 TH/MM3 (1.8-7.7); NUCLEATED RED BLOOD CELL 10 (0-0); POLYS (SEG NEUTROPHILS) 36 % (16-70)
[2017-12-09 01:06] LABS: HOWELL-JOLLY BODIES PRESENT (NONE SEEN); OVALOCYTES 1+ (NORMAL); SICKLE CELLS 3+ (NORMAL); SPHEROCYTES OCC (NORMAL); TARGET CELLS 1+ (NORMAL)
[2017-12-09] MEDS ORDERED: KETAMINE HCL 500 MG/10 ML VIAL OTHER STA (02:05)
[2017-12-09 02:09] VITALS: BP 113/57; PULSE 67; RESP 16; O2SAT 95
[2017-12-09] MEDS ORDERED: PERC5TAB12 PO (04:35)
[2017-12-09] MEDS ORDERED: KETOROLAC TROMETHAMINE 30 MG/ML (IVP) VIAL IVP ONE (05:30)
[2017-12-09] MEDS ORDERED: ONDANSETRON HCL 4 MG/2 ML VIAL IVP ONE (05:30)
[2017-12-09 05:37] VITALS: BP 108/53; PULSE 73; RESP 16; O2SAT 100
== END 2017-12-09 06:53 | disposition home or self-care (01) ==
LOC: NEPC 22:29
DX: D57.00 Hb-SS disease with crisis, unspecified (principal); J45.909 Unspecified asthma, uncomplicated; Z90.49 Acquired absence of other specified parts of digestive tract
CPT/HCPCS: 71045; 80048; 85007; 85027; 85044; 96361; 96374; 96375; 96376; 99291; J1170; J1200; J1885; J2405; J7030

== ENCOUNTER 2017-12-13 17:44 | Inpatient (IN) | payer MEDICARE ==
[~2017-12-13] VITALS: Ht 165.1 cm; Wt 49.4 kg
[2017-12-13] VITALS (8 sets, daily range): BP systolic 100–121; BP diastolic 47–74; PULSE 93–115; RESP 17–24; TEMP 97.7–98.4; O2SAT 93–100
[~2017-12-13 17:44] MED LIST changes: -AZIT250T3 PO; -HYDR-3535 PO; +PERC5TAB12 PO
--- NOTE | 2017-12-13 18:18 | PD ---
HPI Chief Complaint: Sickle Cell Time Seen by Provider: 18:17 Travel History International Travel<30 days: No Contact w/Intl Traveler<30days: No Traveled to known affect area: No History of Present Illness HPI 27-year-old male came to the emergency room with history of sickle cell pain. Patient is moaning and groaning and says that his hips hurt. He says that this time it started hurting at 8 in the morning. However patient was in the emergency room for painful crisis last Monday as well as Monday. Patient was slightly tachycardic and hypoxic in triage. He appears to be in moderate to significant distress. He does not have a christmas tree grower that he follows up with and says his last transfusion was 1 year ago. Pain is there constantly 10 out of 10. No aggravating or relieving factors identified. No radiation of the pain. PFSH Past Medical History Narrative Medical List of his past medical, surgical, social and family history reviewed from the nursing note. Anemia: Yes (SICKLE CELL ANEMIA) Asthma: Yes Blood Disorders: Yes (Sickle Cell Disease) Anxiety: No Depression: No Cancer: No Cardiovascular Problems: No Diabetes: No Diminished Hearing: No Endocrine: No Gastrointestinal Disorders: Yes (cholecystectomy 2012) Genitourinary: No Immune Disorder: No Implanted Vascular Access Dvce: No Musculoskeletal: No Neurologic: No Psychiatric: No Reproductive: No Respiratory: Yes Immunizations Current: Yes Sickle Cell Disease: Yes PNEUMOCCOCAL Vaccine (Year): 2 Past Surgical History Cholecystectomy: Yes Other Surgery: Yes (cholecystectomy ) Social History Alcohol Use: No Tobacco Use: No Substance Use: No (HX weed daily) Allergies-Medications (Allergen,Severity, Reaction): Coded Allergies: No Known Allergies (Verified Allergy, Unknown, 12/08/17) Comments No known drug allergies. Reported Meds & Prescriptions Reported Meds & Active Scripts Active Percocet (Oxycodone-Acetaminophen) 5-325 mg Tab 1-2 Tab PO Q6H PRN Folic Acid 1 Mg Tablet 1 Mg PO DAILY Narrative Medication List of his home medications reviewed from the nursing note. Review of Systems Except as stated in HPI: all other systems reviewed are Neg Musculoskeletal: Positive: Pain Physical Exam Narrative GENERAL: Awake, alert, anxious, significant distress, emaciated SKIN: Focused skin assessment warm/dry. HEAD: Atraumatic. Normocephalic. EYES: Pupils equal and round. No scleral icterus. No injection or drainage. ENT: No nasal bleeding or discharge. Dry mucous membrane. NECK: Trachea midline. No JVD. CARDIOVASCULAR: Regular rate and rhythm. No murmur appreciated. RESPIRATORY: No accessory muscle use. Clear to auscultation. Breath sounds equal bilaterally. GASTROINTESTINAL: Abdomen soft, non-tender, nondistended. Hepatic and splenic margins not palpable. MUSCULOSKELETAL: No obvious deformities. No clubbing. No cyanosis. No edema. NEUROLOGICAL: Awake and alert. No obvious cranial nerve deficits. Motor grossly within normal limits. Normal speech. PSYCHIATRIC: Appropriate mood and affect; insight and judgment normal. Data Data Last Documented VS Vital Signs Date Time Temp Pulse Resp B/P (MAP) Pulse Ox O2 Delivery O2 Flow Rate FiO2 12/13/17 21:14 109 20 120/74 (89) 100 Nasal Cannula 2.00 12/13/17 17:47 97.7 Orders Orders Complete Blood Count With Diff (12/13/17 18:39) Basic Metabolic Panel (Bmp) (12/13/17 18:39) Retic Count (12/13/17 18:39) Sodium Chlor 0.9% 1000 Ml Inj (Ns 1000 M (12/13/17 18:45) Sodium Chlor 0.9% 1000 Ml Inj (Ns 1000 M (12/13/17 18:45) Hydromorphone Pf Inj (Dilaudid Pf Inj) (12/13/17 18:45) Chest, Single Ap (12/13/17 ) Room Service Manager / Telemetry [email or web address] (12/13/17 18:43) Morphine Inj (Morphine Inj) (12/13/17 20:00) Type And Screen (12/13/17 20:59) Red Blood Cells (Rbc) (12/13/17 20:59) Blood Product Administration (12/13/17 20:59) Sodium Chlor 0.9% 250 Ml Inj (Ns 250 Ml (12/13/17 21:00) Morphine Inj (Morphine Inj) (12/13/17 21:00) Admit Order (Ed Use Only) (12/13/17 21:13) Labs Laboratory Tests Test 12/13/17 18:50 12/13/17 20:10 Blood Urea Nitrogen 8 MG/DL Creatinine 0.78 MG/DL Random Glucose 115 MG/DL Calcium Level 8.7 MG/DL Sodium Level 142 MEQ/L Potassium Level 4.0 MEQ/L Chloride Level 109 MEQ/L Carbon Dioxide Level 24.4 MEQ/L Anion Gap 9 MEQ/L Estimat Glomerular Filtration Rate 144 ML/MIN White Blood Count 16.3 TH/MM3 Red Blood Count 2.47 MIL/MM3 Hemoglobin 7.1 GM/DL Hematocrit 19.9 % Mean Corpuscular Volume 80.5 FL Mean Corpuscular Hemoglobin 28.7 PG Mean Corpuscular Hemoglobin Concent 35.6 % Red Cell Distribution Width 23.0 % Platelet Count 185 TH/MM3 Mean Platelet Volume 9.7 FL Neutrophils (%) (Auto) 78.8 % Lymphocytes (%) (Auto) 10.1 % Monocytes (%) (Auto) 9.7 % Eosinophils (%) (Auto) 0.8 % Basophils (%) (Auto) 0.6 % Neutrophils # (Auto) 12.8 TH/MM3 Lymphocytes # (Auto) 1.6 TH/MM3 Monocytes # (Auto) 1.6 TH/MM3 Eosinophils # (Auto) 0.1 TH/MM3 Basophils # (Auto) 0.1 TH/MM3 CBC Comment AUTO DIFF Differential Total Cells Counted 100 Neutrophils % (Manual) 79 % Band Neutrophils % 5 % Lymphocytes % 8 % Monocytes % 5 % Eosinophils % 1 % Basophils % 1 % Neutrophils # (Manual) 13.9 TH/MM3 Promyelocytes 1 % Nucleated Red Blood Cells 3 /100 WBC Differential Comment FINAL DIFF MANUAL Platelet Estimate NORMAL Platelet Morphology Comment ENLARGED Basophilic Stippling FAINT Sickle Cells 2+ Target Cells 1+ Ovalocytes 1+ Reticulocyte Count 14.1 % Absolute Reticulocyte Count 347.4 MIL/L MDM Medical Decision Making Medical Screen Exam Complete: Yes Emergency Medical Condition: Yes Medical Record Reviewed: Yes Differential Diagnosis Sickle cell pain crisis, acute on chronic pain, dehydration, anemia Narrative Course 7:33 PM awaiting for blood test result. Patient is getting IV fluid bolus and pain medication. Chest x-ray was within normal limits as per the radiologist. 8:30 PM patient was given 2 units of packed red blood cell transfusion order because of the blood test result suggestive of anemia. Patient will be admitted. Critical Care Narrative Aggregate critical care time was 30 minutes. Time to perform other separately billable procedures was not included in the critical care time. My time did not include minutes spent treating any other patients simultaneously or on activities that did not directly contribute to the patient's treatment. The services I provided to this patient were to treat and/or prevent clinically significant deterioration that could result in: Sickle cell crisis with symptomatic anemia, blood transfusion I provided critical care services requiring my management, as noted below: Chart data review, documentation time, medication orders and management, vital sign assessments/reviewing monitor data, ordering and reviewing lab tests, ordering and interpreting/reviewing x-rays and diagnostic studies, care of the patient and discussion of the patient with the admitting physicians. Procedures EKG Prior to Arrival: No Diagnosis Primary Impression: Sickle cell crisis Additional Impression: Symptomatic anemia Admitting Information Admitting Physician Requests: it Sha Garza MD Dec 13, 2017 18:18
[2017-12-13] MEDS ORDERED: SODIUM CHLOR 0.9% 1000 ML INJ 1,000 ML IV ONE ×3 (18:45→22:30)
[2017-12-13] MEDS ORDERED: HYDROmorphone HCL PF 2 MG/ML VIAL IV PUSH ONE ×2 (18:45→22:30)
--- NOTE | 2017-12-13 19:21 | RADRPT ---
EXAM DATE/TIME: 12/13/2017 19:03 [facility] COMPARISON: CHEST SINGLE AP, December 09, 2017, 0:00. INDICATIONS : Shortness of breath. Sickle cell crisis. MEDICAL HISTORY : Sickle Cell disease. SURGICAL HISTORY : Cholecystectomy. ENCOUNTER: Initial ACUITY: 1 day PAIN SCORE: 9/10 LOCATION: chest FINDINGS: A single view of the chest demonstrates the lungs to be symmetrically aerated without evidence of mas s, infiltrate or effusion. The cardiomediastinal contours are stable. Osseous structures are intact . CONCLUSION: Stable chest. No acute disease Ashwin Albarran MD on December 13, 2017 at 19:19 Board Certified Radiologist. This report was verified electronically.
[2017-12-13 19:48] LABS: BICARBONATE 24.4 MEQ/L (21.0-32.0); CALCIUM 8.7 MG/DL (8.5-10.1); CREATININE 0.78 MG/DL (0.60-1.30)
[2017-12-13] MEDS ORDERED: MORPHINE SULFATE 8 MG/ML INJ IV PUSH ONE ×2 (20:00→21:00)
[2017-12-13 20:27] LABS: AUTOMATED NEUTROPHIL # 12.8 TH/MM3 (1.8-7.7); BASOPHIL # 0.1 TH/MM3 (0-0.2); BASOPHIL % 0.6 % (0.0-2.0); EOSINOPHIL # 0.1 TH/MM3 (0-0.4); EOSINOPHIL % 0.8 % (0.0-4.0); HEMOGLOBIN 7.1 GM/DL (13.0-17.0); LYMPH % 10.1 % (9.0-44.0); LYMPHOCYTE # 1.6 TH/MM3 (1.0-4.8); MEAN CELL VOLUME 80.5 FL (80.0-100.0); MEAN CORPUSCULAR HEMOGLOBIN 28.7 PG (27.0-34.0); MEAN CORPUSCULAR HGB CONC 35.6 % (32.0-36.0); MEAN PLATELET VOLUME 9.7 FL (7.0-11.0); MONO % 9.7 % (0.0-8.0); MONOCYTE # 1.6 TH/MM3 (0-0.9); NEUT % 78.8 % (16.0-70.0); PLATELET COUNT 185 TH/MM3 (150-450); RED BLOOD COUNT 2.47 MIL/MM3 (4.50-5.90); RETIC # 347.4 MIL/L (20.0-150.0); RETIC % 14.1 % (0.4-3.0); WHITE BLOOD COUNT 16.3 TH/MM3 (4.0-11.0)
[2017-12-13 20:49] LABS: HEMATOCRIT 19.9 % (39.0-51.0)
[2017-12-13] MEDS ORDERED: SODIUM CHLOR 0.9% 250 ML INJ 250 ML IV ONE (21:00)
[2017-12-13 21:28] LABS: BANDS 5 % (0-6); BASOPHILS 1 % (0-2); CORRECTED NUCLEATED RBC 3 /100 WBC (0-0); LYMPHOCYTES 8 % (9-44); MONOCYTES 5 % (0-8); NEUTROPHIL # MANUAL DIFF 13.9 TH/MM3 (1.8-7.7); NUCLEATED RED BLOOD CELL 3 (0-0); OVALOCYTES 1+ (NORMAL); POLYS (SEG NEUTROPHILS) 79 % (16-70); PROMYELOCYTES 1 % (0-0); SICKLE CELLS 2+ (NORMAL); TARGET CELLS 1+ (NORMAL)
[2017-12-13] MEDS: SODIUM CHLOR 0.9% 1000 ML INJ 1,000 ML IV SCH (22:42)
[2017-12-13] MEDS ORDERED: LACTULOSE SYRUP 20 GM/30 ML CUP PO PRN (22:45)
[2017-12-13] MEDS ORDERED: MAGNESIUM HYDROXIDE SUSP 30 ML CUP PO PRN (22:45)
[2017-12-13] MEDS ORDERED: SODIUM CHLORIDE 0.9% FLUSH 10 ML FLUSH IV FLUSH PRN (22:45)
[2017-12-13] MEDS ORDERED: ONDANSETRON HCL 4 MG/2 ML VIAL IVP PRN (22:45)
[2017-12-13] MEDS ORDERED: NALOXONE HCL 0.4 MG/ML AMP IV PUSH PRN (22:45)
[2017-12-13] MEDS ORDERED: BISACODYL 10 MG SUPP RECTAL PRN (22:45)
[2017-12-13] MEDS ORDERED: HYDROmorphone HCL PF 1 MG/ML VIAL IV PUSH PRN (22:45)
[2017-12-13] MEDS ORDERED: SENNOSIDES 8.6 MG TAB PO PRN (22:45)
[2017-12-13] MEDS ORDERED: ACETAMINOPHEN 325 MG TAB PO PRN (22:45)
[2017-12-14] VITALS (15 sets, daily range): BP systolic 108–138; BP diastolic 52–77; PULSE 78–162; RESP 16–24; TEMP 97.7–100.9; O2SAT 92–100
[2017-12-14] MEDS: HYDROmorphone HCL PF 2 MG/ML VIAL IV PRN ×6 (01:04→23:48)
--- NOTE | 2017-12-14 04:01 | HHI.HP ---
HPI Service [facility] Primary Care Physician No Primary Care Physician Admission Diagnosis Sickle cell crisis, intractable pain, symptomatic anemia Diagnoses: Travel History International Travel<30 Days: No Contact w/Intl Traveler <30 Da: No Traveled to Known Affected Are: No History of Present Illness 27-year-old male with a past medical history significant for sickle cell disease presents to the emergency department for evaluation of sickle cell pain crisis. The patient reports he has pain in his back and bilateral hips that is consistent with his usual pain crisis. He is also found to be severely anemic with an H&H of 7.1 and 19.9. He denies any chest pain or shortness of breath. No abdominal pain. No nausea/vomiting/diarrhea. No fever/chills no weakness or fatigue. No lightheadedness. Review of Systems Except as stated in HPI: all other systems reviewed are Neg Past Family Social History Past Medical History Sickle cell disease Past Surgical History Cholecystectomy Reported Medications Reported Meds & Active Scripts Active Percocet (Oxycodone-Acetaminophen) 5-325 mg Tab 1-2 Tab PO Q6H PRN Folic Acid 1 Mg Tablet 1 Mg PO DAILY Allergies: Coded Allergies: No Known Allergies (Verified Allergy, Unknown, 12/08/17) Family History Negative for CAD/DM Social History Positive for marijuana. Rare alcohol. Denies tobacco. Physical Exam Vital Signs Vital Signs Date Time Temp Pulse Resp B/P (MAP) Pulse Ox O2 Delivery O2 Flow Rate FiO2 12/14/17 03:24 98.8 108 20 108/52 97 12/14/17 01:06 162 24 100 Nasal Cannula 12/14/17 00:41 99.2 123 20 113/56 100 12/14/17 00:23 99.2 122 20 111/55 100 12/14/17 00:06 111 20 118/58 100 12/13/17 23:29 20 12/13/17 23:29 20 12/13/17 23:21 115 20 121/60 97 12/13/17 23:04 113 24 119/60 99 12/13/17 22:57 98.4 108 24 120/58 97 12/13/17 22:35 110 24 112/51 (71) 98 Nasal Cannula 2.00 12/13/17 21:14 109 20 120/74 (89) 100 Nasal Cannula 2.00 12/13/17 20:42 20 12/13/17 19:53 20 12/13/17 19:39 93 24 114/54 (74) 100 Nasal Cannula 2.00 12/13/17 18:50 97 22 103/47 (65) 96 Nasal Cannula 2.00 12/13/17 18:41 97 Nasal Cannula 2.00 12/13/17 18:20 20 90 Room Air 12/13/17 17:47 97.7 106 17 100/51 (67) 93 Physical Exam GENERAL: Thin, -[place] male lying in bed. SKIN: No rashes, ecchymoses or lesions. Cool and dry. HEAD: Atraumatic. Normocephalic. No temporal or scalp tenderness. EYES: Pupils equal round and reactive. Extraocular motions intact. No scleral icterus. No injection or drainage. ENT: Nose without bleeding, purulent drainage or septal hematoma. Throat without erythema, tonsillar hypertrophy or exudate. Uvula midline. Airway patent. NECK: Trachea midline. No JVD or lymphadenopathy. Supple, nontender, no meningeal signs. CARDIOVASCULAR: Regular rate and rhythm without murmurs, gallops, or rubs. RESPIRATORY: Clear to auscultation. Breath sounds equal bilaterally. No wheezes , rales, or rhonchi. GASTROINTESTINAL: Abdomen soft, non-tender, nondistended. No hepato-splenomegaly , or palpable masses. No guarding. MUSCULOSKELETAL: Extremities without clubbing, cyanosis, or edema. No joint tenderness, effusion, or edema noted. No calf tenderness. NEUROLOGICAL: Awake and alert. Cranial nerves II through XII intact. Motor and sensory grossly within normal limits. Normal speech. Laboratory Laboratory Tests Test 12/13/17 18:50 12/13/17 20:10 Blood Urea Nitrogen 8 Creatinine 0.78 Random Glucose 115 Calcium Level 8.7 Sodium Level 142 Potassium Level 4.0 Chloride Level 109 Carbon Dioxide Level 24.4 Anion Gap 9 Estimat Glomerular Filtration Rate 144 White Blood Count 16.3 Red Blood Count 2.47 Hemoglobin 7.1 Hematocrit 19.9 Mean Corpuscular Volume 80.5 Mean Corpuscular Hemoglobin 28.7 Mean Corpuscular Hemoglobin Concent 35.6 Red Cell Distribution Width 23.0 Platelet Count 185 Mean Platelet Volume 9.7 Neutrophils (%) (Auto) 78.8 Lymphocytes (%) (Auto) 10.1 Monocytes (%) (Auto) 9.7 Eosinophils (%) (Auto) 0.8 Basophils (%) (Auto) 0.6 Neutrophils # (Auto) 12.8 Lymphocytes # (Auto) 1.6 Monocytes # (Auto) 1.6 Eosinophils # (Auto) 0.1 Basophils # (Auto) 0.1 CBC Comment AUTO DIFF Differential Total Cells Counted 100 Neutrophils % (Manual) 79 Band Neutrophils % 5 Lymphocytes % 8 Monocytes % 5 Eosinophils % 1 Basophils % 1 Neutrophils # (Manual) 13.9 Promyelocytes 1 Nucleated Red Blood Cells 3 Differential Comment FINAL DIFF MANUAL Platelet Estimate NORMAL Platelet Morphology Comment ENLARGED Basophilic Stippling FAINT Sickle Cells 2+ Target Cells 1+ Ovalocytes 1+ Reticulocyte Count 14.1 Absolute Reticulocyte Count 347.4 Result Diagram: 12/13/17200912/13/17 1850 Caprini VTE Risk Assessment Caprini VTE Risk Assessment: No/Low Risk (score <= 1) Caprini Risk Assessment Model Point Value = 1 Point Value = 2 Point Value = 3 Point Value = 5 Age 41-60 Minor surgery BMI > 25 kg/m2 Swollen legs Varicose veins or History of unexplained or recurrent spontaneous Oral contraceptives or hormone replacement Sepsis (< 1 month) Serious lung disease, including pneumonia (< 1 month) Abnormal pulmonary function Acute myocardial infarction Congestive heart failure (< 1 month) History of inflammatory bowel disease Medical patient at bed rest Age 61-74 Arthroscopic surgery Major open surgery (> 45 min) Laparoscopic surgery (> 45 min) Malignancy Confined to bed (> 72 hours) Immobilizing plaster cast Central venous access Age >= 75 History of VTE Family history of VTE Factor V Leiden Prothrombin [id number] Lupus anticoagulant Anticardiolipin antibodies Elevated serum homocysteine Heparin-induced thrombocytopenia Other congenital or acquired thrombophilia Stroke (< 1 month) Elective arthroplasty Hip, pelvis, or leg fracture Acute spinal cord injury (< 1 month) Prophylaxis Regimen Total Risk Factor Score Risk Level Prophylaxis Regimen 0-1 Low Early ambulation 2 Moderate Order ONE of the following: *Sequential Compression Device (SCD) *Heparin 5000 units SQ BID 3-4 Higher Order ONE of the following medications: *Heparin 5000 units SQ TID *Enoxaparin/Lovenox 40 mg SQ daily (WT < 150 kg, CrCl > 30 mL/min) *Enoxaparin/Lovenox 30 mg SQ daily (WT < 150 kg, CrCl > 10-29 mL/min) *Enoxaparin/Lovenox 30 mg SQ BID (WT < 150 kg, CrCl > 30 mL/min) AND/OR *Sequential Compression Device (SCD) 5 or more Highest Order ONE of the following medications: *Heparin 5000 units SQ TID (Preferred with Epidurals) *Enoxaparin/Lovenox 40 mg SQ daily (WT < 150 kg, CrCl > 30 mL/min) *Enoxaparin/Lovenox 30 mg SQ daily (WT < 150 kg, CrCl > 10-29 mL/min) *Enoxaparin/Lovenox 30 mg SQ BID (WT < 150 kg, CrCl > 30 mL/min) AND *Sequential Compression Device (SCD) Assessment and Plan Assessment and Plan Assessment/plan: 1. Sickle cell pain crisis Dilaudid for pain IV fluid hydration 2. Severe anemia Transfused 2 units packed red blood cells in the ED Monitor CBC FEN Regular diet NS at 70 cc/hr Electrolytes: monitor and replete prn Physician Certification 2 Midnight Certification Type: Admission for Inpatient Services Order for Inpatient Services The services are ordered in accordance with Medicare regulations or non- Medicare payer requirements, as applicable. In the case of services not specified as inpatient-only, they are appropriately provided as inpatient services in accordance with the 2-midnight benchmark. Estimated LOS (days): 2 2 days is the estimated time the patient will need to remain in the hospital, assuming treatment plan goals are met and no additional complications. Post-Hospital Plan: Not yet determined Ne Ahuja MD Dec 14, 2017 04:01
[2017-12-14] MEDS: SODIUM CHLORIDE 0.9% FLUSH 10 ML FLUSH IV FLUSH SCH ×2 (10:25→21:21)
[2017-12-14] MEDS: DOCUSATE SODIUM 50 MG/SENNA 8.6 MG TAB PO SCH ×2 (10:25→21:20)
[2017-12-14 13:28] LABS: AUTOMATED NEUTROPHIL # 7.4 TH/MM3 (1.8-7.7); BASOPHIL % 0.3 % (0.0-2.0); EOSINOPHIL # 0.2 TH/MM3 (0-0.4); EOSINOPHIL % 2.2 % (0.0-4.0); HEMATOCRIT 25.3 % (39.0-51.0); HEMOGLOBIN 9.2 GM/DL (13.0-17.0); LYMPH % 17.2 % (9.0-44.0); LYMPHOCYTE # 1.8 TH/MM3 (1.0-4.8); MEAN CELL VOLUME 80.6 FL (80.0-100.0); MEAN CORPUSCULAR HEMOGLOBIN 29.4 PG (27.0-34.0); MONO % 10.6 % (0.0-8.0); MONOCYTE # 1.1 TH/MM3 (0-0.9); NEUT % 69.7 % (16.0-70.0); PLATELET COUNT 183 TH/MM3 (150-450); RED BLOOD COUNT 3.14 MIL/MM3 (4.50-5.90); RED CELL DISTRIBUTION WIDTH 20.7 % (11.6-17.2); WHITE BLOOD COUNT 10.6 TH/MM3 (4.0-11.0)
[2017-12-14 13:56] LABS: BICARBONATE 26.2 MEQ/L (21.0-32.0); CALCIUM 8.3 MG/DL (8.5-10.1); CREATININE 0.65 MG/DL (0.60-1.30)
[2017-12-14 14:06] LABS: MEAN CORPUSCULAR HGB CONC 36.5 % (32.0-36.0)
[2017-12-14 14:08] LABS: BANDS 1 % (0-6); CORRECTED NUCLEATED RBC 10 /100 WBC (0-0); LYMPHOCYTES 13 % (9-44); MONOCYTES 12 % (0-8); NUCLEATED RED BLOOD CELL 10 (0-0); POLYCHROMASIA 2.4 % (0.0-1.9); POLYS (SEG NEUTROPHILS) 74 % (16-70)
[2017-12-14 14:10] LABS: OVALOCYTES 2+ (NORMAL)
[2017-12-14 14:11] LABS: TARGET CELLS 1+ (NORMAL)
[2017-12-14] MEDS: SODIUM CHLOR 0.9% 1000 ML INJ 1,000 ML IV SCH ×2 (14:31→23:50)
[2017-12-15] VITALS (14 sets, daily range): BP systolic 104–126; BP diastolic 49–63; PULSE 60–99; RESP 16–20; TEMP 96.8–100.1; O2SAT 93–98
[2017-12-15] MEDS: HYDROmorphone HCL PF 2 MG/ML VIAL IV PRN ×5 (04:48→22:00)
[2017-12-15] MEDS: SODIUM CHLORIDE 0.9% FLUSH 10 ML FLUSH IV FLUSH SCH ×2 (09:00→22:00)
[2017-12-15] MEDS: DOCUSATE SODIUM 50 MG/SENNA 8.6 MG TAB PO SCH ×2 (09:04→22:00)
[2017-12-15] MEDS: SODIUM CHLOR 0.9% 1000 ML INJ 1,000 ML IV SCH (13:28)
--- NOTE | 2017-12-15 19:25 | HHI.PR ---
Subjective Remarks Late entry the patient was seen earlier today Patient complains of pain in his back. He was noted with fever temperature 100.9 yesterday and low grade fevers today 100.1 ordered blood cultures chest x-ray and UA patient denies having any chest pain at this time no nausea vomiting no diarrhea or constipation. No urinary complaints at this time. Objective Vitals Vital Signs Date Time Temp Pulse Resp B/P (MAP) Pulse Ox O2 Delivery O2 Flow Rate FiO2 12/15/17 17:30 98.5 71 119/58 (78) 94 12/15/17 16:01 60 12/15/17 16:00 98.1 66 20 115/63 (80) 97 12/15/17 12:00 98.1 83 20 126/57 (80) 98 12/15/17 11:59 72 12/15/17 08:00 96.8 70 20 111/59 (76) 94 12/15/17 07:58 63 12/15/17 07:58 94 Nasal Cannula 2.00 12/15/17 07:55 90 Room Air 12/15/17 04:10 100.1 78 16 124/59 (80) 93 12/15/17 04:00 88 12/15/17 00:05 71 12/14/17 23:37 99.6 82 16 125/61 (82) 95 12/14/17 20:53 98.6 80 16 119/54 (75) 92 12/14/17 20:22 83 I/O 12/14/17 12/14/17 12/14/17 12/15/17 12/15/17 12/15/17 07:00 15:00 23:00 07:00 15:00 23:00 Intake Total 1300 ml 360 ml 1000 ml 720 ml Output Total 2200 ml 550 ml 2075 ml 1000 ml Balance -900 ml -550 ml -1715 ml 1000 ml -280 ml Intake Oral 360 ml 720 ml IV Total 1000 ml Packed Cells 800 ml Blood Product IV Normal Saline Flush 500 ml Output Urine Total 2200 ml 550 ml 2075 ml 1000 ml # Voids 3 # Bowel Movements 0 0 Result Diagram: 12/14/17 1229 12/14/17 1229 Imaging Last Impressions Chest X-Ray 12/13/17 0000 Signed Impressions: Service Date/Time: Wednesday, December 13, 2017 19:03 - CONCLUSION: Stable chest. No acute disease Ashwin Albarran MD Objective Remarks GENERAL: Thin, -Lebanese male lying in bed. CARDIOVASCULAR: Regular rate and rhythm without murmurs, gallops, or rubs. RESPIRATORY: Clear to auscultation. Breath sounds equal bilaterally. No wheezes , rales, or rhonchi. GASTROINTESTINAL: Abdomen soft, non-tender, nondistended. No hepato-splenomegaly , or palpable masses. No guarding. MUSCULOSKELETAL: Extremities without clubbing, cyanosis, or edema. No joint tenderness, effusion, or edema noted. No calf tenderness. NEUROLOGICAL: Awake and alert. Cranial nerves II through XII intact. Motor and sensory grossly within normal limits. Normal speech. A/P Assessment and Plan Sickle cell pain crisis Dilaudid for pain IV fluid hydration Noted with temp 100.9 yesterday . WBC back to normal/ Monitor Will also order blood cultures, CXR and UA. Monitor for signs of infection Severe anemia Transfused 2 units packed red blood cells in the ED Monitor CBC FEN Regular diet NS at 70 cc/hr Electrolytes: monitor and replete prn Not ready for discharge pending improvement. Monitor for signs of infection. Bernice De Dios MD Dec 15, 2017 19:25
[2017-12-16] VITALS (8 sets, daily range): BP systolic 105–128; BP diastolic 50–59; PULSE 57–86; RESP 16–20; TEMP 98.2–98.9; O2SAT 96–99
[2017-12-16] MEDS: HYDROmorphone HCL PF 2 MG/ML VIAL IV PRN ×3 (02:38→10:59)
[2017-12-16] MEDS: SODIUM CHLOR 0.9% 1000 ML INJ 1,000 ML IV SCH (02:40)
[2017-12-16] MEDS: SODIUM CHLORIDE 0.9% FLUSH 10 ML FLUSH IV FLUSH SCH ×2 (10:20→20:27)
[2017-12-16] MEDS: DOCUSATE SODIUM 50 MG/SENNA 8.6 MG TAB PO SCH ×2 (10:21→20:26)
--- NOTE | 2017-12-16 14:49 | HHI.PR ---
Subjective Remarks Pt seen and examined. VS reviewed. He reports he is feeling better than when he came in but still in significant pain in his low back and hips. He denies chest pain, cough, shortness of breath, fever, or chills. He has never been intubated. He does not have a PCP or strainer cleaner. He states he used to take folic acid but has never been on hydroxyurea. He states he doesn't like taking pills. He reports typically when he has a crisis he tries to just deal with it at home because he hates coming to the hospital. He hopes to be able to go home tomorrow if he's feeling better. Objective Vital Signs Date Time Temp Pulse Resp B/P (MAP) Pulse Ox O2 Delivery O2 Flow Rate FiO2 12/16/17 12:00 98.5 86 20 110/57 (74) 98 12/16/17 08:00 98.3 57 20 105/54 (71) 96 12/16/17 04:27 98.6 61 16 106/50 (68) 96 12/16/17 04:00 Room Air 12/16/17 03:47 68 12/16/17 03:37 18 12/16/17 00:00 Room Air 12/15/17 23:47 82 12/15/17 23:36 98.3 69 16 104/49 (67) 96 12/15/17 22:00 Room Air 12/15/17 20:15 97.4 99 16 121/59 (79) 97 12/15/17 19:52 82 12/15/17 17:30 98.5 71 119/58 (78) 94 12/15/17 16:01 60 12/15/17 16:00 98.1 66 20 115/63 (80) 97 I/O 12/15/17 12/15/17 12/15/17 12/16/17 12/16/17 12/16/17 07:00 15:00 23:00 07:00 15:00 23:00 Intake Total 360 ml 1000 ml 720 ml 1120 ml Output Total 2075 ml 1000 ml 1400 ml Balance -1715 ml 1000 ml -280 ml -280 ml Intake Oral 360 ml 720 ml 120 ml IV Total 1000 ml 1000 ml Output Urine Total 2075 ml 1000 ml 1400 ml # Bowel Movements 0 0 0 Result Diagram: 12/14/17 1229 12/14/17 1229 Objective Remarks GENERAL: WN, WD AA male resting in bed in NAD. SKIN: Warm and dry. HEENT: AT/NC. Pupils equal and round. MMM. NECK: Supple no tender LAD or JVD. HEART: RRR with 2/6 NICKI. LUNGS: CTAB without wheezes or crackles. ABDOMEN: +BS, soft, NT, ND. EXTREMITIES: No LE edema. 2+ pedal pulses. NEURO: Awake and alert. Nonfocal. PSYCH: Appropriate mood and affect. A/P Assessment and Plan 27 YOAAM with sickle cell anemia admitted on 12/13 for acute pain crisis. 1. Sickle cell pain crisis - Improving on Dilaudid - Encouraged PO analgesics, provided with [place] - No signs of acute chest - Encouraged him to establish with PCP and strainer cleaner - Hold off on starting on hydroxyurea seeing that he doesn't have OP follow-up and it requires routine lab monitoring - Continue NS at 70 ml/hr 2. Anemia - S/P transfusion of 2 units packed RBCs - Hemodynamically stable - CBC ordered but hasn't been done yet - Monitor H&H DVT prophylaxis: Lovenox Discharge Planning Anticipate D/C tomorrow Krystina Álvarez MD Dec 16, 2017 14:49
[2017-12-16] MEDS ORDERED: ENOXAPARIN SODIUM 40 MG/0.4 ML SYRINGE SQ SCH (15:00)
[2017-12-16] MEDS ORDERED: ACETAMINOPHEN/HYDROcodone 325 MG/5 MG TAB PO PRN (15:00)
[2017-12-16 15:29] LABS: HEMATOCRIT 28.7 % (39.0-51.0); MEAN CELL VOLUME 84.3 FL (80.0-100.0); MEAN CORPUSCULAR HEMOGLOBIN 29.4 PG (27.0-34.0); MEAN CORPUSCULAR HGB CONC 34.8 % (32.0-36.0); MEAN PLATELET VOLUME 10.9 FL (7.0-11.0); PLATELET COUNT 223 TH/MM3 (150-450); RED CELL DISTRIBUTION WIDTH 16.9 % (11.6-17.2); WHITE BLOOD COUNT 8.8 TH/MM3 (4.0-11.0)
[2017-12-16 15:31] LABS: LYMPH % 26.3 % (9.0-44.0); MONO % 7.5 % (0.0-8.0); NEUT % 59.8 % (16.0-70.0)
[2017-12-16 15:32] LABS: AUTOMATED NEUTROPHIL # 5.4 TH/MM3 (1.8-7.7); BASOPHIL # 0.1 TH/MM3 (0-0.2); BASOPHIL % 0.7 % (0.0-2.0); EOSINOPHIL # 0.5 TH/MM3 (0-0.4); EOSINOPHIL % 5.7 % (0.0-4.0); LYMPHOCYTE # 2.4 TH/MM3 (1.0-4.8); MONOCYTE # 0.7 TH/MM3 (0-0.9)
[2017-12-16] MEDS: ACETAMINOPHEN/HYDROcodone 325 MG/10 MG TAB PO PRN ×2 (16:30→20:27)
[2017-12-16] MEDS: HYDROmorphone HCL PF 2 MG/ML VIAL IV PUSH PRN (22:27)
[2017-12-17] VITALS: BP 128/92; PULSE 68; RESP 17; TEMP 98.5; O2SAT 100
[2017-12-17] MEDS: ACETAMINOPHEN/HYDROcodone 325 MG/10 MG TAB PO PRN ×3 (00:44→08:37)
[2017-12-17] MEDS: HYDROmorphone HCL PF 2 MG/ML VIAL IV PUSH PRN ×2 (02:35→06:32)
[2017-12-17 03:43] VITALS: PULSE 60
[2017-12-17 04:00] VITALS: BP_SYST 134; BP_SYST 141; BP_DIAS 60; BP_DIAS 65; PULSE 59; PULSE 99; RESP 16; RESP 20; TEMP 98.5; TEMP 98.8; O2SAT 100; O2SAT 98
[2017-12-17] MEDS: SODIUM CHLOR 0.9% 1000 ML INJ 1,000 ML IV SCH ×2 (04:39→12:30)
[2017-12-17 08:00] VITALS: BP 120/57; PULSE 55; RESP 20; TEMP 97.7; O2SAT 100
[2017-12-17] MEDS: SODIUM CHLORIDE 0.9% FLUSH 10 ML FLUSH IV FLUSH SCH (08:37)
[2017-12-17] MEDS: DOCUSATE SODIUM 50 MG/SENNA 8.6 MG TAB PO SCH (08:37)
[2017-12-17 09:18] LABS: AUTOMATED NEUTROPHIL # 3.5 TH/MM3 (1.8-7.7); BASOPHIL # 0.1 TH/MM3 (0-0.2); BASOPHIL % 0.7 % (0.0-2.0); EOSINOPHIL # 0.8 TH/MM3 (0-0.4); EOSINOPHIL % 9.6 % (0.0-4.0); LYMPH % 40.3 % (9.0-44.0); LYMPHOCYTE # 3.5 TH/MM3 (1.0-4.8); MEAN CELL VOLUME 84.4 FL (80.0-100.0); MEAN CORPUSCULAR HEMOGLOBIN 29.1 PG (27.0-34.0); MEAN CORPUSCULAR HGB CONC 34.5 % (32.0-36.0); MEAN PLATELET VOLUME 10.7 FL (7.0-11.0); MONO % 8.7 % (0.0-8.0); MONOCYTE # 0.8 TH/MM3 (0-0.9); NEUT % 40.7 % (16.0-70.0); PLATELET COUNT 199 TH/MM3 (150-450); RED BLOOD COUNT 3.08 MIL/MM3 (4.50-5.90); RED CELL DISTRIBUTION WIDTH 17.6 % (11.6-17.2); WHITE BLOOD COUNT 8.6 TH/MM3 (4.0-11.0)
[2017-12-17 12:00] VITALS: BP 125/58; PULSE 59; PULSE 66; RESP 20; TEMP 97.8; O2SAT 99
[2017-12-17] MEDS ORDERED: HYDR-3516 PO (12:54)
[2017-12-17] MEDS ORDERED: FOLI1TAB6 PO (12:54)
--- NOTE | 2017-12-17 12:55 | HHI.DCPOC ---
Discharge Care Plan Diagnosis: (1) Vaso-occlusive sickle cell crisis (2) Sickle cell anemia Goals to Promote Your Health * To prevent worsening of your condition and complications * To maintain your health at the optimal level Directions to Meet Your Goals Take your medications as prescribed Follow your dietary instruction Follow activity as directed Keep your appointments as scheduled Take your immunizations and boosters as scheduled If your symptoms worsen call your PCP, if no PCP go to Urgent Care Center or Emergency Room Smoking is Dangerous to Your Health. Avoid second hand smoke Call the 24-hour hour crisis hotline for domestic abuse at Krystina Álvarez MD Dec 17, 2017 12:55 pm
--- NOTE | 2017-12-17 12:58 | HHI.DS ---
Discharge Summary Admission Date Dec 13, 2017 at 9:15 pm Discharge Date: Dec 17, 2017 Admitting Diagnosis Sickle cell crisis, intractable pain, symptomatic anemia (1) Sickle cell anemia ICD Code: D57.1 - Sickle-cell disease without crisis (2) Vaso-occlusive sickle cell crisis ICD Code: D57.00 - Hb-SS disease with crisis, unspecified Status: Acute Procedures None Brief History - From Admission 27-year-old male with a past medical history significant for sickle cell disease presents to the emergency department for evaluation of sickle cell pain crisis. The patient reports he has pain in his back and bilateral hips that is consistent with his usual pain crisis. He is also found to be severely anemic with an H&H of 7.1 and 19.9. He denies any chest pain or shortness of breath. No abdominal pain. No nausea/vomiting/diarrhea. No fever/chills no weakness or fatigue. No lightheadedness. CBC/BMP: 12/17/17 0749 12/14/17 1229 Significant Findings Laboratory Tests Test 12/16/17 14:15 12/17/17 07:49 Red Blood Count 3.40 MIL/MM3 (4.50-5.90) 3.08 MIL/MM3 (4.50-5.90) Hemoglobin 10.0 GM/DL (13.0-17.0) 9.0 GM/DL (13.0-17.0) Hematocrit 28.7 % (39.0-51.0) 26.0 % (39.0-51.0) Eosinophils (%) (Auto) 5.7 % (0.0-4.0) 9.6 % (0.0-4.0) Eosinophils # (Auto) 0.5 TH/MM3 (0-0.4) 0.8 TH/MM3 (0-0.4) Red Cell Distribution Width 17.6 % (11.6-17.2) Monocytes (%) (Auto) 8.7 % (0.0-8.0) Imaging Chest X-Ray 12/13/17 0000 Signed Impressions: Service Date/Time: Wednesday, December 13, 2017 19:03 - CONCLUSION: Stable chest. No acute disease Ashwin Albarran MD PE at Discharge GENERAL: Thin, -Azerbaijani male lying in bed. CARDIOVASCULAR: Regular rate and rhythm without murmurs, gallops, or rubs. RESPIRATORY: Clear to auscultation. Breath sounds equal bilaterally. No wheezes , rales, or rhonchi. GASTROINTESTINAL: Abdomen soft, non-tender, nondistended. No hepato-splenomegaly , or palpable masses. No guarding. MUSCULOSKELETAL: Extremities without clubbing, cyanosis, or edema. No joint tenderness, effusion, or edema noted. No calf tenderness. NEUROLOGICAL: Awake and alert. Cranial nerves II through XII intact. Motor and sensory grossly within normal limits. Normal speech. Pt update on day of discharge Pt reports he is feeing well. Pain has decreased. Controlled with [place]. He wants to go home. Tolerating PO. Denies CP, SOB, N/V, abdominal pain. He does not have a PCP but states he will consider. Hospital Course 27 YOAAM with sickle cell anemia admitted on 12/13 for acute pain crisis. He was treated with IV Dilaudid and PO norco, IV hydration, and two units packed RBCs for anemia. He improved clinically and was discharged in stable condition on . He was strongly encouraged to establish with a PCP and ultimately a occupational medicine officer. Pt Condition on Discharge: Good Discharge Disposition: Discharge Home Discharge Time: <= 30 minutes Discharge Instructions DIET: Follow Instructions for: As Tolerated, No Restrictions Activities you can perform: Regular-No Restrictions Follow up Referrals: PCP Follow-up - 1 Week New Medications: Hydrocodone/Acetaminophen (Hydrocodone-Acetamin 5-325 mg) 5 Mg-325 Mg Tablet 1-2 TAB PO Q4H PRN for PAIN, #30 TAB Continued Medications: Folic Acid (Folic Acid) 1 Mg Tablet 1 MG PO DAILY for Immunosuppression, #30 MG (This prescription has been renewed) Discontinued Medications: Oxycodone-Acetaminophen (Percocet) 5-325 mg Tab 1-2 TAB PO Q6H PRN for PAIN SCALE 6 TO 10, #15 TAB 0 Refills Krystina Álvarez MD Dec 17, 2017 12:58 pm
== END 2017-12-17 14:12 | disposition home or self-care (01) | DRG 812 ==
LOC: NEPD 17:44 → NEDA 21:15 → NEDH 12-14 01:31 → HCIN 12-14 08:11 → N04B 12-14 16:35
PROVIDERS: ADMIT Family Medicine; ATTEND Family Medicine
PROC: 30233N1 Transfusion of Nonautologous Red Blood Cells into Peripheral Vein, Percutaneous Approach (ICD-10-PCS; principal; 2017-12-13)
DX: D57.00 Hb-SS disease with crisis, unspecified (principal); R09.02 Hypoxemia; J45.909 Unspecified asthma, uncomplicated; R00.0 Tachycardia, unspecified
CPT/HCPCS: 36430; 71045; 80048; 85007; 85025; 85027; 85044; 86850; 86900; 86901; 86920; 87040; 96361; 96374; 96375; J1170; J2270; J7030; J7050; P9016

== ENCOUNTER 2018-04-02 06:33 | Inpatient (IN) ==
--- NOTE | 2018-04-02 07:33 | ED ---
HPI General Chief complaint: Sickle Cell Stated complaint: Sickle Cell x26 hours Time Seen by Provider: 04/02/18 07:24 History of Present Illness HPI narrative: Patient presents to the emergency department complaining of sickle cell crisis 27 hours. Pain is described as being in the right leg. Took Percocet yesterday and 6 Xanax last night without relief of symptoms. Pain described as being 10 out of 10, intermittent, standing makes it worse, being in awkward positions makes it better, pounding in quality. He denies any trauma. He denies fever, shortness of breath, chest pain, abdominal pain, or nausea or vomiting. Related Data Previous Rx's Medication Instructions Recorded hydrocodone-acetaminophen [[place]] 1 tab PO Q4H PRN #14 tab 03/13/18 Allergies Allergy/AdvReac Type Severity Reaction Status Date / Time No Known Allergies Allergy Unverified 03/13/18 09:48 Review of Systems ROS Unobtainable All other systems reviewed negative except as stated in HPI [facility] Medical History Medical History FH: cholecystectomy (Acute) Sickle cell anemia (Acute) Social History Social History Substance History: No History of Abuse Second Hand Smoke Exposure: No Smoking Status: Never smoker Tobacco Type: Pipe How Often Do You Have a Drink Containing Alcohol: Never Recent Travel in [place] within the Last 8 Weeks: No Recent Out of Country Travel within the Last 8 Weeks: No Substance Abuse Detail Marijuana: Substance Use Status: Active Immunization History Tetanus Immunization: <5 Years Hx Influenza Vaccine This Season: No Exam Narrative Exam Narrative: GENERAL: Positive discomfort secondary to pain. SKIN: Focused skin assessment warm/dry. HEAD: Atraumatic. Normocephalic. EYES: Pupils equal and round. No injection or drainage. ENT: No nasal bleeding or discharge. Mucous membranes dry. NECK: Trachea midline. No JVD. CARDIOVASCULAR: Regular rate and rhythm. + murmur appreciated. RESPIRATORY: No accessory muscle use. Clear to auscultation. Breath sounds equal bilaterally. GASTROINTESTINAL: Abdomen soft, non-tender, nondistended. Hepatic and splenic margins not palpable. MUSCULOSKELETAL: No obvious deformities. No clubbing. No cyanosis. No edema. 2+ DP pulses bilaterally. NEUROLOGICAL: Awake and alert. No obvious cranial nerve deficits. Motor grossly within normal limits. Normal speech. PSYCHIATRIC: Appropriate mood and affect; insight and judgment normal. Course Initial Documented Vital Signs Temperature 97.9 F 04/02/18 07:07 Pulse Rate 102 H 04/02/18 07:07 Respiratory Rate 17 04/02/18 07:07 Blood Pressure 119/55 L 04/02/18 07:07 Pulse Oximetry 96 04/02/18 07:07 Last Documented Vital Signs Temperature 97.9 F 04/02/18 07:07 Pulse Rate 102 H 04/02/18 07:07 Respiratory Rate 17 04/02/18 07:07 Blood Pressure 119/55 L 04/02/18 07:07 Pulse Oximetry 96 04/02/18 07:07 Medical Decision Making MDM Narrative Medical decision making narrative: Patient presents to the emergency department secondary to sickle cell pain crisis. Patient placed on tile and mottle supervisor, continuous pulse ox, and IV access obtained. Labs, IV normal saline 1 L, zofran 4mg ODT, CXR, and dilaudid 1 mg IV ordered. Labs: Leukocytosis, decreased hemoglobin and hematocrit, elevated reticulocyte count and T bili and AST. Chest x-ray no acute process, UA positive for blood. 1045: Patient still c/o pain, states he needs to be admitted for pain control in his opinion. Will give another dose of IV dilaudid, 1L IV NS, and admit. Differential Diagnosis Differential Diagnosis: Sickle cell pain, aplastic crisis, infection Lab Data Result diagrams: 04/02/18 08:05 04/02/18 08:05 Lab Results 04/02/18 04/02/18 Range/Units 08:05 08:05 WBC 18.2 H (4.0-11.0) th/mm3 RBC 2.83 L (4.50-5.90) mil/mm3 Hgb 8.1 L (13.0-17.0) gm/dL Hct 23.0 L (39.0-51.0) % MCV 81.2 (80.0-100.0) fL MCH 28.6 (27.0-34.0) pg MCHC 35.2 (32.0-36.0) % RDW 21.2 H (11.6-17.2) % Plt Count 297 (150-450) th/mm3 MPV 9.7 (7.0-11.0) fL Prelim Diff (Auto) Slide review pending Neut % (Auto) 70.2 H (16.0-70.0) % Lymph % (Auto) 18.1 (9.0-44.0) % [place] % (Auto) 10.6 H (0.0-8.0) % Eos % (Auto) 0.3 (0.0-4.0) % Baso % (Auto) 0.8 (0.0-2.0) % Neut # (Auto) 12.8 H (1.8-7.7) th/mm3 Lymph # (Auto) 3.3 (1.0-4.8) th/mm3 [place] # (Auto) 1.9 H (0.0-0.9) th/mm3 Eos # (Auto) 0.1 (0.0-0.4) th/mm3 Baso # (Auto) 0.1 (0.0-0.2) th/mm3 WBC Differential Manual diff final Seg Neuts % (Manual) 75 H (16-70) % Lymphocytes % (Manual) 18 (9-44) % Monocytes % (Manual) 7 (0-8) % Abs Neuts (Manual) 13.7 H (1.8-7.7) th/mm3 Differential Comment . Platelet Estimate Normal (Normal) Platelet Morphology Normal (Normal) Polychromasia 2.1 H (0.0-1.9) % Sickle Cells 1+ H (None) Ovalocytes 1+ H (None) Retic Count 11.1 H (0.4-3.0) % Absolute Retic 314.0 H (20.0-150.0) mil/L Sodium 140 (136-145) meq/L Potassium 4.0 (3.5-5.1) meq/L Chloride 106 (98-107) meq/L Carbon Dioxide 26.1 (21.0-32.0) meq/L Anion Gap 8 (5-15) meq/L BUN 6 L (7-18) mg/dL Creatinine 0.79 (0.60-1.30) mg/dL Estimated GFR Greater than 89 (>89) mL/min Random Glucose 104 (74-106) mg/dL Calcium 9.0 (8.5-10.1) mg/dL Total Bilirubin 5.1 H (0.2-1.0) mg/dL AST 61 H (15-37) U/L ALT 53 (12-78) U/L Alkaline Phosphatase 113 (45-117) U/L Total Protein 8.1 (6.4-8.2) g/dL Albumin 4.3 (3.4-5.0) g/dL Imaging Data Radiologist's impression: Chest X-Ray 04/02/18 07:39 CONCLUSION: No acute cardiopulmonary process. Discharge Plan Discharge Disposition Patient Disposition: 30 Still Patient Discharge Condition Condition: Stable Discharge Details Diagnosis: Sickle cell pain crisis Physicians Team ED Provider: Aundrea Stover Primary Care Provider: Primary Care Mariela Lopez Rxs /Orders / Referrals /Forms Prescriptions: No Action hydrocodone-acetaminophen [[place]] 5-325 mg tablet 1 tab PO Q4H PRN (Reason: Acute pain) Qty: 14 RF: 0 Status ED Status: Admitted Patient
[2018-04-02] MEDS ORDERED: HYDROmorphone PF Inj 1 MG/ML Ampul IV.PUSH ONE (07:37)
[2018-04-02] MEDS ORDERED: Sod Chloride 0.9% Inj 1,000 ML IV.SIG SCH (07:45)
[2018-04-02] MEDS ORDERED: HYDROmorphone PF Inj 2 MG/ML Vial IV.PUSH ONE ×2 (08:15→10:51)
[2018-04-02 08:32] LABS: Baso # (Auto) 0.1 th/mm3 (0.0-0.2); Baso % (Auto) 0.8 % (0.0-2.0); Eos # (Auto) 0.1 th/mm3 (0.0-0.4); Eos % (Auto) 0.3 % (0.0-4.0); Hemoglobin 8.1 gm/dL (13.0-17.0); Lymph # (Auto) 3.3 th/mm3 (1.0-4.8); Lymph % (Auto) 18.1 % (9.0-44.0); Mean Corpuscular HGB Conc 35.2 % (32.0-36.0); Mean Corpuscular Hemoglobin 28.6 pg (27.0-34.0); Mean Corpuscular Volume 81.2 fL (80.0-100.0); Mean Platelet Volume 9.7 fL (7.0-11.0); Mono # (Auto) 1.9 th/mm3 (0.0-0.9); Mono % (Auto) 10.6 % (0.0-8.0); Neut # (Auto) 12.8 th/mm3 (1.8-7.7); Neut % (Auto) 70.2 % (16.0-70.0); Platelet Count 297 th/mm3 (150-450); Red Blood Count 2.83 mil/mm3 (4.50-5.90); Red Cell Distribution Width 21.2 % (11.6-17.2); Reticulocyte Percent 11.1 % (0.4-3.0); White Blood Count 18.2 th/mm3 (4.0-11.0)
--- NOTE | 2018-04-02 08:47 | XR ---
EXAM DATE: 04/02/2018 8:41 AM EDT AGE/SEX: 28 years / Male INDICATIONS: Leg pain. CLINICAL DATA: This is the patient's initial encounter. Patient reports that signs and symptoms have been present for 2 days and indicates a pain score of 10/10. MEDICAL/SURGICAL HISTORY: Sickle Cell disease. None. COMPARISON: [facility] [place], CHEST 1V SINGLE AP, 03/12/2018. . FINDINGS: A single AP view of the chest demonstrates the lungs to be symmetrically aerated, accounting for some rotation, without evidence of mass, infiltrate or effusion. The cardiomediastinal contours are unre markable. Osseous structures are intact. CONCLUSION: No acute cardiopulmonary process. Electronically signed by: Lm Bianchi MD 04/02/2018 8:46 AM EDT
[2018-04-02 08:49] LABS: Alkaline Phosphatase 113 U/L (45-117); Total Protein 8.1 g/dL (6.4-8.2)
[2018-04-02 08:53] LABS: Alanine Aminotransferase 53 U/L (12-78); Albumin 4.3 g/dL (3.4-5.0); Anion Gap 8 meq/L (5-15); Aspartate Aminotransferase 61 U/L (15-37); Blood Urea Nitrogen 6 mg/dL (7-18); Carbon Dioxide 26.1 meq/L (21.0-32.0); Chloride 106 meq/L (98-107); Glomerular Filtration Rate Greater Than 89 mL/min (>89); Glucose,Random 104 mg/dL (74-106); Sodium 140 meq/L (136-145)
[2018-04-02 09:10] LABS: Lymphocytes 18 % (9-44); Monocytes 7 % (0-8)
[2018-04-02 09:12] LABS: Platelet Estimate Normal (Normal); Platelet Morphology Normal (Normal); Polychromasia 2.1 % (0.0-1.9); Sickle Cells 1+
[2018-04-02 09:13] LABS: Ovalocytes 1+
[2018-04-02] MEDS ORDERED: Sod Chloride 0.9% Inj 1,000 ML IV.SIG ONE (10:49)
[2018-04-02] MEDS ORDERED: Bisacodyl 10 MG Supp RECTAL PRN (11:24)
[2018-04-02] MEDS ORDERED: Naloxone Inj 0.4 MG/ML Vial IV.PUSH PRN (11:28)
[2018-04-02] MEDS ORDERED: Morphine Inj 4 MG/ML Vial IV.PUSH PRN (11:28)
[2018-04-02] MEDS ORDERED: HYDROmorphone PF Inj 2 MG/ML Vial IV.PUSH PRN ×2 (11:45)
--- NOTE | 2018-04-02 12:10 | P.HPIM ---
History of Present Illness Primary Care Physician: No Primary Care Physician History of Present Illness: 28-year-old male with a history of sickle cell anemia who presents with a 1 day history of constant severe nonradiating sharp pain in right calf, worsened by any movement, and which is not adequately controlled with IV narcotics in the ER.. Denies any fevers, chills, chest pain, shortness of breath. Inpatient Certification: I certify that the inpatient services were ordered in accordance with Medicare regulations governing the order. This includes certification that hospital inpatient services are reasonable and necessary and in the case of services not specified as inpatient-only under 42 CFR 419.22(n), that they are appropriately provided as inpatient services in accordance to with the 2-midnight benchmark under 43 CFR 412.3(e) Estimated Total Length of Stay (Days): 2 Plans for Post Hospital Care: Home Review of Systems All other systems reviewed negative except as stated in HPI PMFSH - History History Provided By: Patient - Medical History Medical History: Medical History (Last Updated 04/02/18 @ 07:23 by Lillian Vanessa) FH: cholecystectomy Sickle cell anemia - Surgical History Surgical History: Surgical History (Last Updated 04/02/18 @ 12:01 by Kevin Pollack MD) Hx of cholecystectomy - Family History Family History: Family History (Last Updated 04/02/18 @ 12:01 by Kevni Pollack MD) Mother Sickle cell trait Father Sickle cell trait Sister Sickle cell disease - Tobacco History Second Hand Smoke Exposure: No Smoking Status: Never smoker - Alcohol History How Often Do You Have a Drink Containing Alcohol: Never - Substance Use History Substance History: No History of Abuse - Substance Use Type Marijuana Status: Active - Travel History Recent Travel in the [place] Within the Last 8 Weeks: No Recent Travel Out of the Country Within the Last 8 Weeks: No - Immunization History Tetanus Immunization: <5 Years Hx Influenza Vaccine This Season: No Medications and Allergies Active Medications: Active Medications Al Hydroxide/Mg Hydroxide (Milk Of Magnesia Liq) 30 ml PO Q12H PRN PRN Reason: Mild Constipation Bisacodyl (Dulcolax Supp) 10 mg RECTAL DAILY PRN PRN Reason: SEVERE CONSITIPATION Hydromorphone HCl (Dilaudid Pf Inj) 0.5 mg IV.PUSH Q3H PRN PRN Reason: PAIN 3-5; IF UNABLE TO TAKE PO Hydromorphone HCl (Dilaudid Pf Inj) 1 mg IV.PUSH Q3H PRN PRN Reason: PAIN 6-10;IF UNABLE TO TAKE PO Hydromorphone HCl (Dilaudid Pf Inj) 1 mg IV.PUSH Q3H PRN PRN Reason: BREAKTHROUGH PAIN Sodium Chloride (Ns Inj) 1,000 mls @ 100 mls/hr IV.CONT .Q10H JAVIER Lactulose (Lactulose Liq) 30 ml PO DAILY PRN PRN Reason: SEVERE CONSITIPATION Morphine Sulfate (Morphine Inj) 4 mg IV.PUSH Q1H PRN PRN Reason: Pain Scale 7-10 (Intractable) Naloxone HCl (Narcan Inj) 0.4 mg IV.PUSH UNSCH PRN PRN Reason: SEE LABEL COMMENTS Sennosides (Senokot) 17.2 mg PO Q12H PRN PRN Reason: Moderate Constipation Temazepam (Restoril) 15 mg PO HS PRN PRN Reason: INSOMNIA Allergies Allergy/AdvReac Type Severity Reaction Status Date / Time No Known Allergies Allergy Unverified 03/13/18 09:48 Exam Vital signs: Vital Signs 04/02/18 07:07 Temperature 97.9 F Pulse Rate 102 H Respiratory Rate 17 Blood Pressure 119/55 L Pulse Oximetry 96 Intake & Output 04/01/18 04/02/18 04/02/18 18:59 06:59 18:59 Weight 52.163 kg Narrative: GENERAL: Patient sitting up in bed. Appears comfortable. Alert and oriented 3. SKIN: Warm and dry. HEAD: Atraumatic. Normocephalic. EYES: Pupils equal and round. No scleral icterus. No injection or drainage. ENT: No nasal bleeding or discharge. Mucous membranes pink and moist. NECK: Trachea midline. No JVD. CARDIOVASCULAR: Regular rate and rhythm. RESPIRATORY: No accessory muscle use. Clear to auscultation. Breath sounds equal bilaterally. GASTROINTESTINAL: Abdomen soft, non-tender, nondistended. Hepatic and splenic margins not palpable. MUSCULOSKELETAL: Extremities without clubbing, cyanosis, or edema. No obvious deformities. Peripheral perfusion intact. Tenderness, firmness on palpation of right calf. NEUROLOGICAL: Awake and alert. No obvious cranial nerve deficits. Motor grossly within normal limits. Five out of 5 muscle strength in the arms. Right lower extremity strength decreased secondary to pain. Normal speech. PSYCHIATRIC: Appropriate mood and affect; insight and judgment normal. Results - Labs CBC & Chem 7: 04/02/18 08:05 04/02/18 08:05 Labs: Short CBC 04/02/18 Range/Units 08:05 WBC 18.2 H (4.0-11.0) th/mm3 Hgb 8.1 L (13.0-17.0) gm/dL Hct 23.0 L (39.0-51.0) % Plt Count 297 (150-450) th/mm3 BMP 04/02/18 08:05 Sodium 140 Potassium 4.0 Chloride 106 Carbon Dioxide 26.1 BUN 6 L Creatinine 0.79 Calcium 9.0 Liver Function 04/02/18 Range/Units 08:05 Total Bilirubin 5.1 H (0.2-1.0) mg/dL AST 61 H (15-37) U/L ALT 53 (12-78) U/L Alkaline Phosphatase 113 (45-117) U/L Albumin 4.3 (3.4-5.0) g/dL - Imaging Impressions Chest X-Ray 04/02/18 07:39 CONCLUSION: No acute cardiopulmonary process. Caprini VTE Risk Assessment Caprini VTE Risk Assessment: No/Low Risk (score <= 1) Caprini Risk Assessment Model: Point Value = 1 Point Value = 2 Point Value = 3 Point Value = 5 Age 41-60 Minor surgery BMI > 25 kg/m2 Swollen legs Varicose veins or History of unexplained or recurrent spontaneous Oral contraceptives or hormone replacement Sepsis (< 1 month) Serious lung disease, including pneumonia (< 1 month) Abnormal pulmonary function Acute myocardial infarction Congestive heart failure (< 1 month) History of inflammatory bowel disease Medical patient at bed rest Age 61-74 Arthroscopic surgery Major open surgery (> 45 min) Laparoscopic surgery (> 45 min) Malignancy Confined to bed (> 72 hours) Immobilizing plaster cast Central venous access Age >= 75 History of VTE Family history of VTE Factor V Leiden Prothrombin [id number] Lupus anticoagulant Anticardiolipin antibodies Elevated serum homocysteine Heparin-induced thrombocytopenia Other congenital or acquired thrombophilia Stroke (< 1 month) Elective arthroplasty Hip, pelvis, or leg fracture Acute spinal cord injury (< 1 month) Prophylaxis Regimen: Total Risk Factor Score Risk Level Prophylaxis Regimen 0-1 Low Early ambulation 2 Moderate Order ONE of the following: *Sequential Compression Device (SCD) *Heparin 5000 units SQ BID 3-4 Higher Order ONE of the following medications: *Heparin 5000 units SQ TID *Enoxaparin/Lovenox 40 mg SQ daily (WT < 150 kg, CrCl > 30 mL/min) *Enoxaparin/Lovenox 30 mg SQ daily (WT < 150 kg, CrCl > 10-29 mL/min) *Enoxaparin/Lovenox 30 mg SQ BID (WT < 150 kg, CrCl > 30 mL/min) AND/OR *Sequential Compression Device (SCD) 5 or more Highest Order ONE of the following medications: *Heparin 5000 units SQ TID (Preferred with Epidurals) *Enoxaparin/Lovenox 40 mg SQ daily (WT < 150 kg, CrCl > 30 mL/min) *Enoxaparin/Lovenox 30 mg SQ daily (WT < 150 kg, CrCl > 10-29 mL/min) *Enoxaparin/Lovenox 30 mg SQ BID (WT < 150 kg, CrCl > 30 mL/min) AND *Sequential Compression Device (SCD) Assessment and Plan - Plan //Sickle cell pain crisis Hemoglobin stable from baseline 8.4. Bilirubin stable from baseline. Chest x-ray with no acute findings. Leukocytosis likely secondary to pain = Placed on IV fluids We will control pain with IV narcotics, heating pad = Continue to assess response. //Leukocytosis of 18. Likely secondary to pain. No signs of infection currently. Continue to monitor. //Right lower extremity calf pain. This is likely regional muscle inflammation , however will check Doppler to rule out DVT. Pain control last month Discharge Planning: Pending improvement in pain.
--- NOTE | 2018-04-02 12:47 | US ---
EXAM DATE: 04/02/2018 12:27 PM EDT AGE/SEX: 28 years / Male INDICATIONS: Right leg pain. CLINICAL DATA: This is the patient's initial encounter. Patient reports that signs and symptoms have been present for 2 days and indicates a pain score of 7/10. MEDICAL/SURGICAL HISTORY: Sickle Cell disease. Cholecystectomy. COMPARISON: No prior exams available for comparison. TECHNIQUE: Venous ultrasound of both lower extremities was performed from the inguinal ligament to t he proximal calf. Real-time, color Doppler and spectral tracing, compression and augmentation techni ques were used. FINDINGS: Normal compression of the deep venous system from the inguinal region to the proximal calf . No echogenic clot is seen. Normal response of the venous system to augmentation and respiration. : CONCLUSION: Negative for deep venous thrombosis. Keshav Hart MD FACR Electronically signed by: Keshav Hart MD 04/02/2018 12:46 PM EDT
[2018-04-02] MEDS: Sod Chloride 0.9% Inj 1,000 ML IV.CONT SCH ×2 (13:08→22:58)
[2018-04-02] MEDS: HYDROmorphone PF Inj 2 MG/ML Vial IV.PUSH PRN ×3 (14:27→22:55)
[2018-04-02] MEDS ORDERED: Temazepam 15 MG Capsule PO PRN (21:00)
[2018-04-02 23:27] LABS: Bacteria,Urine Rare /hpf; Bilirubin,Urine Negative (Negative); Clarity,Urine Clear (Clear); Color,Urine Yellow (Yellw/Straw); Glucose,Urine (UA) Negative (Negative); Leukocyte Esterase,Urine Small (Negative); Mucus,Urine Few /lpf (Occasional); Nitrite,Urine Negative (Negative); Specific Gravity,Urine 1.009 (1.002-1.035); Urobilinogen,Urine 4 or Greater mg/dL (Less than 2)
[2018-04-03] MEDS: HYDROmorphone PF Inj 2 MG/ML Vial IV.PUSH PRN (02:10)
[2018-04-03] MEDS: Sod Chloride 0.9% Inj 1,000 ML IV.CONT SCH ×3 (08:05→19:37)
--- NOTE | 2018-04-03 08:24 | P.PN ---
Subjective Interval history: Follow-up sickle cell crisis. Improving pain no UTI symptoms Physical Exam Vital signs: Vital Signs 04/02/18 11:48 04/02/18 12:07 04/02/18 13:08 Temperature Pulse Rate 74 Respiratory Rate 18 Blood Pressure 90/43 L 103/50 L Pulse Oximetry 96 96 04/02/18 16:00 04/02/18 20:00 04/03/18 08:00 Temperature 97.1 F L 99.7 F H 99.3 F Pulse Rate 83 85 83 Respiratory Rate 16 18 16 Blood Pressure 135/63 100/46 L 105/51 L Pulse Oximetry 94 L 92 L 96 Intake & Output 04/02/18 04/03/18 04/03/18 18:59 06:59 18:59 Intake Total 2600 / 2600 1000 / 1000 1000 / 1000 Output Total 1000 / 1000 Balance 2600 / 2600 0 / 0 1000 / 1000 Weight 52.163 kg Intake: IV 1999 / 1999 1000 / 1000 1000 / 1000 NS Inj 1,000 ML @ 100 mls/hr IV 1000 / 1000 1000 / 1000 .CONT .Q10H JAVIER Rx#:[id number] NS Inj 1,000 ML @ Wide Open IV. 1999 / 1999 SIG BOLUS ONE Rx#:[id number] Oral 600 / 600 Output: Urine 1000 / 1000 Other: # Voids 2 Date of Last Bowel Movement 04/02/18 Narrative: GENERAL: Patient sitting up in bed. Appears comfortable. Alert and oriented 3. SKIN: Warm and dry. CARDIOVASCULAR: Regular rate and rhythm. RESPIRATORY: No accessory muscle use. Clear to auscultation. Breath sounds equal bilaterally. GASTROINTESTINAL: Abdomen soft, non-tender, nondistended MUSCULOSKELETAL: Extremities without clubbing, cyanosis, or edema. No obvious deformities. Peripheral perfusion intact. Tenderness, firmness on palpation of right calf. NEUROLOGICAL: Awake and alert. No obvious cranial nerve deficits. Motor grossly within normal limits. Five out of 5 muscle strength in the arms. Right lower extremity strength decreased secondary to pain. Normal speech. Results - Labs CBC & Chem 7: 04/03/18 07:23 04/03/18 07:23 Laboratory Results - last 24 hr 04/02/18 04/02/18 04/02/18 08:05 08:05 23:00 WBC 18.2 H RBC 2.83 L Hgb 8.1 L Hct 23.0 L MCV 81.2 MCH 28.6 MCHC 35.2 RDW 21.2 H Plt Count 297 MPV 9.7 Prelim Diff (Auto) Slide review pending Neut % (Auto) 70.2 H Lymph % (Auto) 18.1 [place] % (Auto) 10.6 H Eos % (Auto) 0.3 Baso % (Auto) 0.8 Neut # (Auto) 12.8 H Lymph # (Auto) 3.3 [place] # (Auto) 1.9 H Eos # (Auto) 0.1 Baso # (Auto) 0.1 WBC Differential Manual diff final Seg Neuts % (Manual) 75 H Lymphocytes % (Manual) 18 Monocytes % (Manual) 7 Abs Neuts (Manual) 13.7 H Differential Comment . Platelet Estimate Normal Platelet Morphology Normal Polychromasia 2.1 H Sickle Cells 1+ H Ovalocytes 1+ H Retic Count 11.1 H Absolute Retic 314.0 H Sodium 140 Potassium 4.0 Chloride 106 Carbon Dioxide 26.1 Anion Gap 8 BUN 6 L Creatinine 0.79 Estimated GFR Greater than 89 Random Glucose 104 Calcium 9.0 Total Bilirubin 5.1 H AST 61 H ALT 53 Alkaline Phosphatase 113 Total Protein 8.1 Albumin 4.3 Urine Color Yellow Urine Clarity Clear Urine pH 6.0 Ur Specific [place] 1.009 Urine Protein 30 H Urine Glucose (UA) Negative Urine Ketones Negative Urine Occult Blood Moderate H Urine Nitrate Negative Urine Bilirubin Negative Urine Urobilinogen 4 or greater Ur Leukocyte Esterase Small H Urine RBC 2 Urine WBC 24 H Urine Bacteria Rare H Urine Mucus Few H Micro UA Comment Culture indicated Urine Culture Comments Culture indicated - Imaging Impressions Venous Doppler Study 04/02/18 00:00 CONCLUSION: Negative for deep venous thrombosis. Keshav Hart MD FACR Chest X-Ray 04/02/18 07:39 CONCLUSION: No acute cardiopulmonary process. - Procedures none Assessment and Plan - Plan Sickle cell pain crisis Hemoglobin stable from baseline 8.4. Bilirubin stable from baseline. Chest x-ray with no acute findings. -Placed on IV fluids We will control pain with IV narcotics as needed restart home medication Lortab , heating pad counselled regarding narcotics Leukocytosis of 18. Abnormal urinalysis pending urine culture start empiric Rocephin. Continue to monitor. Right lower extremity calf pain. Doppler negative for DVT. This is likely regional muscle inflammation DVT prophylaxis with SCD and early ambulation. Discharge Planning: possible dc in am
[2018-04-03 09:28] LABS: Baso # (Auto) 0.2 th/mm3 (0.0-0.2); Baso % (Auto) 1.1 % (0.0-2.0); Eos # (Auto) 0.3 th/mm3 (0.0-0.4); Eos % (Auto) 2.3 % (0.0-4.0); Hematocrit 21.3 % (39.0-51.0); Hemoglobin 7.2 gm/dL (13.0-17.0); Lymph # (Auto) 4.2 th/mm3 (1.0-4.8); Lymph % (Auto) 28.8 % (9.0-44.0); Mean Corpuscular HGB Conc 33.9 % (32.0-36.0); Mean Corpuscular Hemoglobin 28.1 pg (27.0-34.0); Mean Corpuscular Volume 82.7 fL (80.0-100.0); Mean Platelet Volume 10.3 fL (7.0-11.0); Mono # (Auto) 1.7 th/mm3 (0.0-0.9); Mono % (Auto) 11.8 % (0.0-8.0); Neut # (Auto) 8.2 th/mm3 (1.8-7.7); Platelet Count 261 th/mm3 (150-450); Red Blood Count 2.58 mil/mm3 (4.50-5.90); Red Cell Distribution Width 20.3 % (11.6-17.2); White Blood Count 14.7 th/mm3 (4.0-11.0)
[2018-04-03 10:05] LABS: Albumin 3.5 g/dL (3.4-5.0); Anion Gap 8 meq/L (5-15); Aspartate Aminotransferase 137 U/L (15-37); Blood Urea Nitrogen 5 mg/dL (7-18); Calcium 8.4 mg/dL (8.5-10.1); Chloride 106 meq/L (98-107); Glomerular Filtration Rate Greater Than 89 mL/min (>89); Glucose,Random 66 mg/dL (74-106); Potassium 4.3 meq/L (3.5-5.1); Sodium 141 meq/L (136-145)
[2018-04-03 10:11] LABS: Alanine Aminotransferase 108 U/L (12-78); Alkaline Phosphatase 130 U/L (45-117)
[2018-04-03] MEDS ORDERED: Morphine Inj 4 MG/ML Vial IV.PUSH PRN (14:30)
[2018-04-04] MEDS: Sod Chloride 0.9% Inj 1,000 ML IV.CONT SCH (06:29)
[2018-04-04 06:44] LABS: Baso # (Auto) 0.1 th/mm3 (0.0-0.2); Eos # (Auto) 0.6 th/mm3 (0.0-0.4); Eos % (Auto) 4.1 % (0.0-4.0); Hematocrit 21.5 % (39.0-51.0); Hemoglobin 7.2 gm/dL (13.0-17.0); Lymph # (Auto) 3.9 th/mm3 (1.0-4.8); Lymph % (Auto) 29.2 % (9.0-44.0); Mean Corpuscular HGB Conc 33.4 % (32.0-36.0); Mean Corpuscular Hemoglobin 28.3 pg (27.0-34.0); Mean Corpuscular Volume 84.7 fL (80.0-100.0); Mean Platelet Volume 10.1 fL (7.0-11.0); Mono # (Auto) 1.6 th/mm3 (0.0-0.9); Mono % (Auto) 12.3 % (0.0-8.0); Neut # (Auto) 7.1 th/mm3 (1.8-7.7); Neut % (Auto) 53.4 % (16.0-70.0); Platelet Count 239 th/mm3 (150-450); Red Blood Count 2.54 mil/mm3 (4.50-5.90); Red Cell Distribution Width 19.9 % (11.6-17.2); White Blood Count 13.4 th/mm3 (4.0-11.0)
[2018-04-04 06:55] LABS: Albumin 3.6 g/dL (3.4-5.0); Anion Gap 10 meq/L (5-15); Aspartate Aminotransferase 90 U/L (15-37); Blood Urea Nitrogen 5 mg/dL (7-18); Calcium 8.7 mg/dL (8.5-10.1); Carbon Dioxide 25.9 meq/L (21.0-32.0); Chloride 106 meq/L (98-107); Glomerular Filtration Rate Greater Than 89 mL/min (>89); Glucose,Random 77 mg/dL (74-106); Potassium 3.9 meq/L (3.5-5.1); Sodium 142 meq/L (136-145)
[2018-04-04 06:56] LABS: Alanine Aminotransferase 99 U/L (12-78)
[2018-04-04 06:58] LABS: Alkaline Phosphatase 135 U/L (45-117); Total Protein 7.1 g/dL (6.4-8.2)
[2018-04-04] MEDS ORDERED: Folic Acid 1 MG Tablet PO SCH (09:00)
[2018-04-04 10:02] VITALS: RESP 16
[2018-04-04] MEDS ORDERED: Sodium Chlor 0.9% Inj 250 ML IV.SIG SCH (11:00)
[2018-04-04 12:47] VITALS: BP 115/46; PULSE 85; TEMP 97.6; O2SAT 97
--- NOTE | 2018-04-04 14:20 | P.DS ---
Date of admission: 04/02/18 11:25 Primary care physician: No Primary Care Physician Brief History from admission: 28-year-old male with a history of sickle cell anemia who presents with a 1 day history of constant severe nonradiating sharp pain in right calf, worsened by any movement, and which is not adequately controlled with IV narcotics in the ER.. Denies any fevers, chills, chest pain, shortness of breath. DS: Medications - Discharge Medications Prescriptions: folic acid 1 mg PO DAILY #30 tab DS: Summary Hospital Course: Sickle cell pain crisis. Improved. Continue folic acid consult regarding narcotics Sickle cell anemia. Hemoglobin 7.2. Refused blood transfusion. Leukocytosis. Improving. Abnormal urinalysis pending urine culture negative to date. Continue to monitor. Right lower extremity calf pain. Doppler negative for DVT. This is likely regional muscle inflammation DVT prophylaxis with SCD and early ambulation. - Time Spent with Patient Total time spent providing and/or coordinating discharge services: Less than 30 minutes - Quality: VTE Deep Vein Thrombosis/Pulmonary Embolism Present on Admission: No Exam Vital signs: Vital Signs 04/03/18 16:00 04/03/18 20:00 04/04/18 00:00 Temperature 98.4 F 98.6 F 98.4 F Pulse Rate 94 H 80 83 Respiratory Rate 16 18 18 Blood Pressure 105/51 L 115/58 L 134/91 H Pulse Oximetry 97 93 L 93 L 04/04/18 08:00 04/04/18 12:00 Temperature 97.9 F 97.6 F Pulse Rate 72 85 Respiratory Rate 16 16 Blood Pressure 100/53 L 115/46 L Pulse Oximetry 98 97 Intake & Output 04/03/18 04/04/18 04/04/18 18:59 06:59 18:59 Intake Total 3100 / 3100 1999 Output Total 800 / 800 Balance 3100 / 3100 1200 / 1200 Intake: IV 2100 / 2100 1999 NS Inj 1,000 ML @ 100 mls/hr IV 1999 .CONT .Q10H JAVIER Rx#:[id number] Rocephin Inj 1,000 MG In NS Inj 100 / 100 100 ML @ 200 mls/hr IV.SIG Q24H JAVIER Rx#:[id number] Oral 1000 / 1000 Output: Urine 800 / 800 Other: # Voids 3 2 Date of Last Bowel Movement 04/02/18 # Bowel Movements 1 Narrative: GENERAL: Appears comfortable. Alert and oriented 3. SKIN: Warm and dry. CARDIOVASCULAR: Regular rate and rhythm. RESPIRATORY: No accessory muscle use. Clear to auscultation. Breath sounds equal bilaterally. GASTROINTESTINAL: Abdomen soft, non-tender, nondistended MUSCULOSKELETAL: Extremities without clubbing, cyanosis, or edema. No obvious deformities. Peripheral perfusion intact. Tenderness, firmness on palpation of right calf. NEUROLOGICAL: Awake and alert. No obvious cranial nerve deficits. Motor grossly within normal limits. Five out of 5 muscle strength in the arms. Normal speech. Results Procedures completed during hospitalization: none Labs on day of discharge: Labs from last 24 hours 04/04/18 04/04/18 04/04/18 13:04 05:31 05:31 WBC 13.4 H RBC 2.54 L Hgb 7.2 L Hct 21.5 L MCV 84.7 MCH 28.3 MCHC 33.4 RDW 19.9 H Plt Count 239 MPV 10.1 Neut % (Auto) 53.4 Lymph % (Auto) 29.2 [place] % (Auto) 12.3 H Eos % (Auto) 4.1 H Baso % (Auto) 1.0 Neut # (Auto) 7.1 Lymph # (Auto) 3.9 [place] # (Auto) 1.6 H Eos # (Auto) 0.6 H Baso # (Auto) 0.1 WBC Differential . Differential Comment Auto diff final Sodium 142 Potassium 3.9 Chloride 106 Carbon Dioxide 25.9 Anion Gap 10 BUN 5 L Creatinine 0.52 L Estimated GFR Greater than 89 Random Glucose 77 Calcium 8.7 Total Bilirubin 4.3 H AST 90 H ALT 99 H Alkaline Phosphatase 135 H Total Protein 7.1 Albumin 3.6 Blood Type O Positive Antibody Screen Negative MTS Gel Crossmatch See Detail - Impressions ITS Impressions Venous Doppler Study 04/02/18 00:00 CONCLUSION: Negative for deep venous thrombosis. Keshav Hart MD FACR Chest X-Ray 04/02/18 07:39 CONCLUSION: No acute cardiopulmonary process. Discharge Plan - Discharge Disposition Patient Disposition: 01 Discharge Home - Discharge Condition Condition: Stable - Discharge Order Discharge Orders: Discharge Order (Routine); Ordered 04/04/18 Ordered By: Getachew Moody - Physicians Team Primary Care Provider: Primary Care NaveeniMariela Attending Provider: Getachew Moody
== END 2018-04-04 14:49 | disposition home or self-care (01) ==
LOC: NEPE 06:33 → NEDA 11:25 → N07 13:39
PROVIDERS: ADMIT Internal Medicine; ATTEND Internal Medicine

== ENCOUNTER 2018-05-11 02:01 | Inpatient (IN) ==
[2018-05-11] MEDS ORDERED: HYDROmorphone PF Inj 2 MG/ML Vial IV.PUSH ONE (02:40)
[2018-05-11] MEDS ORDERED: Sod Chloride 0.9% Inj 1,000 ML IV.SIG ONE (02:41)
[2018-05-11 03:12] LABS: Baso # (Auto) 0.1 th/mm3 (0.0-0.2); Baso % (Auto) 0.9 % (0.0-2.0); Eos # (Auto) 0.4 th/mm3 (0.0-0.4); Eos % (Auto) 2.3 % (0.0-4.0); Lymph # (Auto) 6.6 th/mm3 (1.0-4.8); Lymph % (Auto) 38.1 % (9.0-44.0); Mean Corpuscular HGB Conc 33.6 % (32.0-36.0); Mean Corpuscular Hemoglobin 27.7 pg (27.0-34.0); Mean Corpuscular Volume 82.5 fL (80.0-100.0); Mean Platelet Volume 10.4 fL (7.0-11.0); Mono # (Auto) 1.9 th/mm3 (0.0-0.9); Mono % (Auto) 10.9 % (0.0-8.0); Neut # (Auto) 8.3 th/mm3 (1.8-7.7); Neut % (Auto) 47.8 % (16.0-70.0); Platelet Count 227 th/mm3 (150-450); Red Blood Count 2.22 mil/mm3 (4.50-5.90); Red Cell Distribution Width 25.9 % (11.6-17.2); Reticulocyte Percent 17.3 % (0.4-3.0); White Blood Count 17.3 th/mm3 (4.0-11.0)
--- NOTE | 2018-05-11 03:20 | ED ---
HPI General Chief complaint: Pain: Chronic Stated complaint: Sickle cell Time Seen by Provider: 05/11/18 02:19 History of Present Illness HPI narrative: Patient is a 28-year-old male with sickle cell disease he is having fever and pelvic and hip pain where he usually gets his crisis. Pt has not been transfused in a while and he denies CP no SOB and no jaundice , pt femur and HIP pain and feels weak and nauseous , he has no home meds and is not in a pain clinic as he has not had a crisis in a while according to patient report Related Data Previous Rx's Medication Instructions Recorded folic acid 1 mg PO DAILY #30 tab 05/13/18 hydrocodone-acetaminophen [[place]] 1 tab PO Q4H PRN #15 tab 05/13/18 Allergies Allergy/AdvReac Type Severity Reaction Status Date / Time No Known Allergies Allergy Verified 05/11/18 02:11 Pediatric Review of Systems All systems: reviewed and negative except as stated REPLACED BY [facility] Family History Family History Mother Sickle cell trait Father Sickle cell trait Sister Sickle cell disease Social History Social History Substance History: No History of Abuse Second Hand Smoke Exposure: No Smoking Status: Never smoker How Often Do You Have a Drink Containing Alcohol: Never Recent Travel in [facility] within the Last 8 Weeks: No Recent Out of Country Travel within the Last 8 Weeks: No Immunization History Tetanus Immunization: Unsure Pediatric Exam GENERAL: pt appears uncomfortable and moaning in exam room stretcher SKIN: Warm and dry. HEAD: Atraumatic. Normocephalic. EYES: Pupils equal and round. No scleral icterus. No injection or drainage. ENT: No nasal bleeding or discharge. Mucous membranes pink and moist. NECK: Trachea midline. No JVD. CARDIOVASCULAR: Regular rate and rhythm. RESPIRATORY: No accessory muscle use. Clear to auscultation. Breath sounds equal bilaterally. GASTROINTESTINAL: Abdomen soft, non-tender, nondistended. Hepatic and splenic margins not palpable. MUSCULOSKELETAL: Extremities hip to lower back pain bilateral No edema. No obvious deformities. NEUROLOGICAL: Awake and alert. No obvious cranial nerve deficits. Motor grossly within normal limits. Five out of 5 muscle strength in the arms and legs. Normal speech. PSYCHIATRIC: Appropriate mood and affect; insight and judgment normal. Course Initial Documented Vital Signs Temperature 97.6 F 05/11/18 02:03 Pulse Rate 75 05/11/18 02:03 Respiratory Rate 18 05/11/18 02:03 Blood Pressure 107/54 L 05/11/18 02:03 Pulse Oximetry 95 05/11/18 02:03 Last Documented Vital Signs Temperature 98.3 F 05/13/18 12:00 Pulse Rate 75 05/13/18 12:00 Respiratory Rate 16 05/13/18 12:00 Blood Pressure 103/51 L 05/13/18 12:00 Pulse Oximetry 96 05/13/18 12:00 Medical Decision Making MDM Narrative Medical decision making narrative: Hgb 6.1 and ret = 17 pt needs trafusion and admission for pain sickling crisis with anemia,, IV fluid Nasal o2 and pain managememnt tranfusion to start in ER and continue on inpt Medical Screen Exam Complete: Yes Emergency Medical Condition: Yes Differential Diagnosis Differential Diagnosis: SCD pain crisis vs acute chest or anoxic occlusive crisis vs clotting from sickle cells other Lab Data Result diagrams: 05/12/18 10:46 05/12/18 05:25 Lab Results 05/11/18 05/11/18 05/11/18 Range/Units 02:45 02:45 02:45 WBC 17.3 H (4.0-11.0) th/mm3 RBC 2.22 L (4.50-5.90) mil/mm3 Hgb 6.1 L* (13.0-17.0) gm/dL Hct 18.3 L* (39.0-51.0) % MCV 82.5 (80.0-100.0) fL MCH 27.7 (27.0-34.0) pg MCHC 33.6 (32.0-36.0) % RDW 25.9 H (11.6-17.2) % Plt Count 227 (150-450) th/mm3 MPV 10.4 (7.0-11.0) fL Prelim Diff (Auto) Slide review pending Neut % (Auto) 47.8 (16.0-70.0) % Lymph % (Auto) 38.1 (9.0-44.0) % [place] % (Auto) 10.9 H (0.0-8.0) % Eos % (Auto) 2.3 (0.0-4.0) % Baso % (Auto) 0.9 (0.0-2.0) % Neut # (Auto) 8.3 H (1.8-7.7) th/mm3 Lymph # (Auto) 6.6 H (1.0-4.8) th/mm3 [place] # (Auto) 1.9 H (0.0-0.9) th/mm3 Eos # (Auto) 0.4 (0.0-0.4) th/mm3 Baso # (Auto) 0.1 (0.0-0.2) th/mm3 WBC Differential Manual diff final Seg Neuts % (Manual) 32 (16-70) % Band Neuts % (Manual) 5 (0-6) % Lymphocytes % (Manual) 46 H (9-44) % Monocytes % (Manual) 11 H (0-8) % Eosinophils % (Manual) 1 (0-4) % Basophils % (Manual) 1 (0-2) % Metamyelocytes % (Man) 1 (0-1) % Myelocytes % (Man) 3 H (0-0) % Abs Neuts (Manual) 7.1 (1.8-7.7) th/mm3 Nucleated RBCs/100 WBC 7 H (0-0) /100 WBC Differential Comment . Platelet Estimate Normal (Normal) Platelet Morphology Enlarged H (Normal) Polychromasia 2.9 H (0.0-1.9) % Basophilic Stippling (None) Pappenheimer Bodies Present H (None) Sickle Cells 1+ H (None) Target Cells (None) Ovalocytes (None) [place] Bodies Present H (None) Retic Count 17.3 H Cancelled (0.4-3.0) % Absolute Retic 382.8 H Cancelled (20.0-150.0) mil/L Sodium 141 (136-145) meq/L Potassium 3.9 (3.5-5.1) meq/L Chloride 107 (98-107) meq/L Carbon Dioxide 24.8 (21.0-32.0) meq/L Anion Gap 9 (5-15) meq/L BUN 5 L (7-18) mg/dL Creatinine 0.86 (0.60-1.30) mg/dL Estimated GFR Greater than 89 (>89) mL/min Random Glucose 95 (74-106) mg/dL Calcium 8.1 L (8.5-10.1) mg/dL Total Bilirubin 2.9 H (0.2-1.0) mg/dL AST 44 H (15-37) U/L ALT 48 (12-78) U/L Alkaline Phosphatase 99 (45-117) U/L Lactate Dehydrogenase (87-241) U/L Total Protein 7.8 (6.4-8.2) g/dL Albumin 3.8 (3.4-5.0) g/dL Blood Type Antibody Screen MTS Gel Crossmatch Bld Prod Order Comment 05/11/18 05/11/18 05/12/18 Range/Units 03:00 03:50 05:25 WBC (4.0-11.0) th/mm3 RBC (4.50-5.90) mil/mm3 Hgb (13.0-17.0) gm/dL Hct (39.0-51.0) % MCV (80.0-100.0) fL MCH (27.0-34.0) pg MCHC (32.0-36.0) % RDW (11.6-17.2) % Plt Count (150-450) th/mm3 MPV (7.0-11.0) fL Prelim Diff (Auto) Neut % (Auto) (16.0-70.0) % Lymph % (Auto) (9.0-44.0) % [place] % (Auto) (0.0-8.0) % Eos % (Auto) (0.0-4.0) % Baso % (Auto) (0.0-2.0) % Neut # (Auto) (1.8-7.7) th/mm3 Lymph # (Auto) (1.0-4.8) th/mm3 [place] # (Auto) (0.0-0.9) th/mm3 Eos # (Auto) (0.0-0.4) th/mm3 Baso # (Auto) (0.0-0.2) th/mm3 WBC Differential Seg Neuts % (Manual) (16-70) % Band Neuts % (Manual) (0-6) % Lymphocytes % (Manual) (9-44) % Monocytes % (Manual) (0-8) % Eosinophils % (Manual) (0-4) % Basophils % (Manual) (0-2) % Metamyelocytes % (Man) (0-1) % Myelocytes % (Man) (0-0) % Abs Neuts (Manual) (1.8-7.7) th/mm3 Nucleated RBCs/100 WBC (0-0) /100 WBC Differential Comment Platelet Estimate (Normal) Platelet Morphology (Normal) Polychromasia (0.0-1.9) % Basophilic Stippling (None) Pappenheimer Bodies (None) Sickle Cells (None) Target Cells (None) Ovalocytes (None) [place] Bodies (None) Retic Count 14.7 H (0.4-3.0) % Absolute Retic 445.1 H (20.0-150.0) mil/L Sodium (136-145) meq/L Potassium (3.5-5.1) meq/L Chloride (98-107) meq/L Carbon Dioxide (21.0-32.0) meq/L Anion Gap (5-15) meq/L BUN (7-18) mg/dL Creatinine (0.60-1.30) mg/dL Estimated GFR (>89) mL/min Random Glucose (74-106) mg/dL Calcium (8.5-10.1) mg/dL Total Bilirubin (0.2-1.0) mg/dL AST (15-37) U/L ALT (12-78) U/L Alkaline Phosphatase (45-117) U/L Lactate Dehydrogenase (87-241) U/L Total Protein (6.4-8.2) g/dL Albumin (3.4-5.0) g/dL Blood Type O Positive Antibody Screen Negative MTS Gel Crossmatch See Detail Bld Prod Order Comment 05/12/18 05/12/18 Range/Units 05:25 10:46 WBC 11.2 H (4.0-11.0) th/mm3 RBC 3.06 L (4.50-5.90) mil/mm3 Hgb 8.7 L D (13.0-17.0) gm/dL Hct 25.7 L (39.0-51.0) % MCV 84.0 (80.0-100.0) fL MCH 28.5 (27.0-34.0) pg MCHC 34.0 (32.0-36.0) % RDW 23.8 H (11.6-17.2) % Plt Count 287 (150-450) th/mm3 MPV 9.5 (7.0-11.0) fL Prelim Diff (Auto) Slide review pending Neut % (Auto) 70.9 H (16.0-70.0) % Lymph % (Auto) 14.7 (9.0-44.0) % [place] % (Auto) 13.5 H (0.0-8.0) % Eos % (Auto) 0.3 (0.0-4.0) % Baso % (Auto) 0.6 (0.0-2.0) % Neut # (Auto) 7.9 H (1.8-7.7) th/mm3 Lymph # (Auto) 1.6 (1.0-4.8) th/mm3 [place] # (Auto) 1.5 H (0.0-0.9) th/mm3 Eos # (Auto) 0.0 (0.0-0.4) th/mm3 Baso # (Auto) 0.1 (0.0-0.2) th/mm3 WBC Differential Manual diff final Seg Neuts % (Manual) 75 H (16-70) % Band Neuts % (Manual) 1 (0-6) % Lymphocytes % (Manual) 9 (9-44) % Monocytes % (Manual) 11 H (0-8) % Eosinophils % (Manual) 1 (0-4) % Basophils % (Manual) (0-2) % Metamyelocytes % (Man) 1 (0-1) % Myelocytes % (Man) 2 H (0-0) % Abs Neuts (Manual) 8.8 H (1.8-7.7) th/mm3 Nucleated RBCs/100 WBC 15 H (0-0) /100 WBC Differential Comment . Platelet Estimate Normal (Normal) Platelet Morphology Normal (Normal) Polychromasia (0.0-1.9) % Basophilic Stippling Moderate H (None) Pappenheimer Bodies Present H (None) Sickle Cells 1+ H (None) Target Cells 1+ H (None) Ovalocytes 1+ H (None) [place] Bodies (None) Retic Count (0.4-3.0) % Absolute Retic (20.0-150.0) mil/L Sodium 141 (136-145) meq/L Potassium 3.7 (3.5-5.1) meq/L Chloride 107 (98-107) meq/L Carbon Dioxide 24.3 (21.0-32.0) meq/L Anion Gap 10 (5-15) meq/L BUN 6 L (7-18) mg/dL Creatinine 0.75 (0.60-1.30) mg/dL Estimated GFR Greater than 89 (>89) mL/min Random Glucose 112 H (74-106) mg/dL Calcium 8.4 L (8.5-10.1) mg/dL Total Bilirubin 4.9 H (0.2-1.0) mg/dL AST 131 H (15-37) U/L ALT 96 H (12-78) U/L Alkaline Phosphatase 126 H (45-117) U/L Lactate Dehydrogenase 877 H (87-241) U/L Total Protein 6.9 D (6.4-8.2) g/dL Albumin 3.3 L (3.4-5.0) g/dL Blood Type Antibody Screen MTS Gel Crossmatch Bld Prod Order Comment Imaging Data Radiologist's impression: Chest X-Ray 05/11/18 02:42 CONCLUSION: 1. No acute cardiopulmonary disease. Discharge Plan Discharge Disposition Patient Disposition: 01 Discharge Home Discharge Condition Condition: Good Discharge Order Discharge Orders: Discharge Order (Routine); Ordered 05/13/18 Ordered By: Ish Ospina Physicians Team ED Provider: Balaji Lama Primary Care Provider: Primary Care Mariela Lopez Attending Provider: Ish Ospina Status ED Status: Left Department Discharge Information Discharge Date/Time: 05/11/18 06:00
[2018-05-11 03:23] LABS: Hematocrit 18.3 % (39.0-51.0); Hemoglobin 6.1 gm/dL (13.0-17.0)
[2018-05-11 03:28] LABS: Alkaline Phosphatase 99 U/L (45-117); Total Protein 7.8 g/dL (6.4-8.2)
[2018-05-11 03:33] LABS: Alanine Aminotransferase 48 U/L (12-78); Albumin 3.8 g/dL (3.4-5.0); Anion Gap 9 meq/L (5-15); Aspartate Aminotransferase 44 U/L (15-37); Blood Urea Nitrogen 5 mg/dL (7-18); Calcium 8.1 mg/dL (8.5-10.1); Carbon Dioxide 24.8 meq/L (21.0-32.0); Chloride 107 meq/L (98-107); Glomerular Filtration Rate Greater Than 89 mL/min (>89); Glucose,Random 95 mg/dL (74-106); Potassium 3.9 meq/L (3.5-5.1); Sodium 141 meq/L (136-145)
--- NOTE | 2018-05-11 03:40 | XR ---
EXAM DATE: 05/11/2018 2:56 AM EDT AGE/SEX: 28 years / Male INDICATIONS: Chest pain. CLINICAL DATA: This is the patient's initial encounter. Patient reports that signs and symptoms have been present for 1 day and indicates a pain score of 10/10. MEDICAL/SURGICAL HISTORY: Sickle Cell disease. Cholecystectomy. COMPARISON: . FINDINGS: A single AP view of the chest demonstrates the lungs to be symmetrically aerated without evidence of mass, infiltrate or effusion. The cardiomediastinal contours are unremarkable. Osseous structures a re intact. CONCLUSION: 1. No acute cardiopulmonary disease. Electronically signed by: Jesus Deutsch MD 05/11/2018 3:39 AM EDT
[2018-05-11 04:12] LABS: Eosinophils 1 % (0-4); Lymphocytes 46 % (9-44); Metamyelocytes 1 % (0-1); Monocytes 11 % (0-8); Myelocytes 3 % (0-0); Platelet Estimate Normal (Normal); Tallied Nucleated RBC 7 (0-0)
[2018-05-11 04:13] LABS: Pappenheimer Bodies Present; Sickle Cells 1+
[2018-05-11 04:14] LABS: Howell-Jolly Bodies Present; Polychromasia 2.9 % (0.0-1.9)
[2018-05-11] MEDS ORDERED: Bisacodyl 10 MG Supp RECTAL PRN (04:33)
[2018-05-11] MEDS ORDERED: Acetaminophen 325 MG Tablet PO PRN (04:33)
[2018-05-11] MEDS: HYDROmorphone PF Inj 2 MG/ML Vial IV.PUSH PRN ×5 (04:43→20:50)
[2018-05-11] MEDS: Senna/Docusate Sodium 8.6/50 MG Tablet PO SCH ×2 (08:15→20:52)
--- NOTE | 2018-05-11 12:35 | P.HP ---
History of Present Illness Primary Care Physician: No Primary Care Physician Chief Complaint: Sickle cell crisis History of Present Illness: 28-year-old male with past medical history significant for sickle cell disease, crisis and sickle cell anemia presented to the ED for evaluation of an acute onset of sickle cell pain crises mostly in his bilateral hips and back which is consistent with patient's usual pain crises. He also reported that he was having subjective fever. In the ED, patient was found to be severely anemic with H&H of 6.1/18.3. He denies any GI bleed - Diagnosis (1) Sickle cell pain crisis (2) Sickle cell anemia Inpatient Certification: I certify that the inpatient services were ordered in accordance with Medicare regulations governing the order. This includes certification that hospital inpatient services are reasonable and necessary and in the case of services not specified as inpatient-only under 42 CFR 419.22(n), that they are appropriately provided as inpatient services in accordance to with the 2-midnight benchmark under 43 CFR 412.3(e) Estimated Total Length of Stay (Days): 2 Plans for Post Hospital Care: Home Review of Systems All other systems reviewed negative except as stated in HPI PMFSH - History History Provided By: Patient - Medical History Medical History: Medical History (Last Reviewed 04/03/18 @ 09:12 by Jordyn Sotelo) FH: cholecystectomy Sickle cell anemia - Surgical History Surgical History: Surgical History (Last Reviewed 04/03/18 @ 09:12 by Jordyn Sotelo) Hx of cholecystectomy - Family History Family History: Family History (Last Updated 04/02/18 @ 12:01 by Kevin Pollack MD) Mother Sickle cell trait Father Sickle cell trait Sister Sickle cell disease - Tobacco History Second Hand Smoke Exposure: No Smoking Status: Never smoker - Alcohol History How Often Do You Have a Drink Containing Alcohol: Never - Substance Use History Substance History: No History of Abuse - Travel History Recent Travel in the [place] Within the Last 8 Weeks: No Recent Travel Out of the Country Within the Last 8 Weeks: No - Immunization History Tetanus Immunization: Unsure Medications and Allergies Active Medications: Active Medications Acetaminophen (Tylenol) 650 mg PO Q4H PRN PRN Reason: Temp > 100.4 Hydrocodone Bitart/Acetaminophen ([place] 7.5/325) 1 tab PO Q6H PRN PRN Reason: PAIN 3-5; IF UABLE TO TAKE PO Al Hydroxide/Mg Hydroxide (Milk Of Yola Dumont) 30 ml PO Q12H PRN PRN Reason: Mild Constipation Bisacodyl (Dulcolax Supp) 10 mg RECTAL DAILY PRN PRN Reason: SEVERE CONSITIPATION Folic Acid (Folic Acid) 1 mg PO DAILY JAVIER Hydromorphone HCl (Dilaudid Pf Inj) 1 mg IV.PUSH Q4H PRN PRN Reason: pain 6-10 Last Admin: 05/11/18 08:53 Dose: 1 mg Sodium Chloride (Ns Inj) 1,000 mls @ 70 mls/hr IV.CONT .[id number] [facility] Lactulose (Lactulose Liq) 30 ml PO DAILY PRN PRN Reason: SEVERE CONSITIPATION Ondansetron HCl (Zofran Inj) 4 mg IV.PUSH Q6H PRN PRN Reason: NAUSEA OR VOMITING Senna/Docusate Sodium ([place]hel[place]-Colace) 1 tab PO BID JAVIER Last Admin: 05/11/18 08:15 Dose: Not Given Sennosides (Senokot) 17.2 mg PO Q12H PRN PRN Reason: Moderate Constipation Allergies Allergy/AdvReac Type Severity Reaction Status Date / Time No Known Allergies Allergy Verified 05/11/18 02:11 Exam Vital signs: Vital Signs 05/11/18 02:03 05/11/18 03:42 05/11/18 05:27 Temperature 97.6 F 97.1 F L Pulse Rate 75 96 H 103 H Respiratory Rate 18 16 19 Blood Pressure 107/54 L 119/58 L 131/61 Pulse Oximetry 95 100 05/11/18 05:44 05/11/18 08:00 05/11/18 09:29 Temperature 97.7 F 98.4 F 98.4 F Pulse Rate 96 H 99 H 99 H Respiratory Rate 18 18 18 Blood Pressure 131/66 113/56 L 113/56 L Pulse Oximetry 100 100 05/11/18 09:53 05/11/18 10:38 05/11/18 12:00 Temperature 98.6 F 98.5 F Pulse Rate 120 H 126 H Respiratory Rate 18 18 16 Blood Pressure 111/50 L 101/59 L Pulse Oximetry 94 L 94 L Intake & Output 05/10/18 05/11/18 05/11/18 18:59 06:59 18:59 Intake Total 1000 / 1000 400 / 400 Balance 1000 / 1000 400 / 400 Weight 54.431 kg Intake: IV 1000 / 1000 NS Inj 1,000 ML @ Wide Open IV. 1000 / 1000 SIG BOLUS ONE Rx#:[id number] Intake (Blood Product) Amt 0 / 0 400 / 400 Rbc As-3 Leukoreduced Unit 0 / 0 [id number] Rbc As-3 Leukoreduced Unit 0 / 0 400 / 400 [id number] Other: Date of Last Bowel Movement 05/10/18 Narrative: GENERAL: In mild distress SKIN: Warm and dry. HEAD: Atraumatic. Normocephalic. EYES: Pupils equal and round. No scleral icterus. No injection or drainage. ENT: No nasal bleeding or discharge. Mucous membranes pink and moist. NECK: Trachea midline. No JVD. CARDIOVASCULAR: Regular rate and rhythm. RESPIRATORY: No accessory muscle use. Clear to auscultation. Breath sounds equal bilaterally. GASTROINTESTINAL: Abdomen soft, non-tender, nondistended. Hepatic and splenic margins not palpable. MUSCULOSKELETAL: Extremities without clubbing, cyanosis, or edema. No obvious deformities. TTP @hip joints NEUROLOGICAL: Awake and alert. No obvious cranial nerve deficits. Motor grossly within normal limits. Five out of 5 muscle strength in the arms and legs. Normal speech. PSYCHIATRIC: Appropriate mood and affect; insight and judgment normal. Results - Labs CBC & Chem 7: 05/12/18 10:46 05/12/18 05:25 Labs: Laboratory Results - last 24 hr 05/11/18 05/11/18 05/11/18 02:45 02:45 02:45 WBC 17.3 H RBC 2.22 L Hgb 6.1 L* Hct 18.3 L* MCV 82.5 MCH 27.7 MCHC 33.6 RDW 25.9 H Plt Count 227 MPV 10.4 Prelim Diff (Auto) Slide review pending Neut % (Auto) 47.8 Lymph % (Auto) 38.1 [place] % (Auto) 10.9 H Eos % (Auto) 2.3 Baso % (Auto) 0.9 Neut # (Auto) 8.3 H Lymph # (Auto) 6.6 H [place] # (Auto) 1.9 H Eos # (Auto) 0.4 Baso # (Auto) 0.1 WBC Differential Manual diff final Seg Neuts % (Manual) 32 Band Neuts % (Manual) 5 Lymphocytes % (Manual) 46 H Monocytes % (Manual) 11 H Eosinophils % (Manual) 1 Basophils % (Manual) 1 Metamyelocytes % (Man) 1 Myelocytes % (Man) 3 H Abs Neuts (Manual) 7.1 Nucleated RBCs/100 WBC 7 H Differential Comment . Platelet Estimate Normal Platelet Morphology Enlarged H Polychromasia 2.9 H Pappenheimer Bodies Present H Sickle Cells 1+ H [place] Bodies Present H Retic Count 17.3 H Cancelled Absolute Retic 382.8 H Cancelled Sodium 141 Potassium 3.9 Chloride 107 Carbon Dioxide 24.8 Anion Gap 9 BUN 5 L Creatinine 0.86 Estimated GFR Greater than 89 Random Glucose 95 Calcium 8.1 L Total Bilirubin 2.9 H AST 44 H ALT 48 Alkaline Phosphatase 99 Total Protein 7.8 Albumin 3.8 Blood Type Antibody Screen MTS Gel Crossmatch Bld Prod Order Comment 05/11/18 05/11/18 03:00 03:50 WBC RBC Hgb Hct MCV MCH MCHC RDW Plt Count MPV Prelim Diff (Auto) Neut % (Auto) Lymph % (Auto) [place] % (Auto) Eos % (Auto) Baso % (Auto) Neut # (Auto) Lymph # (Auto) [place] # (Auto) Eos # (Auto) Baso # (Auto) WBC Differential Seg Neuts % (Manual) Band Neuts % (Manual) Lymphocytes % (Manual) Monocytes % (Manual) Eosinophils % (Manual) Basophils % (Manual) Metamyelocytes % (Man) Myelocytes % (Man) Abs Neuts (Manual) Nucleated RBCs/100 WBC Differential Comment Platelet Estimate Platelet Morphology Polychromasia Pappenheimer Bodies Sickle Cells [place] Bodies Retic Count Absolute Retic Sodium Potassium Chloride Carbon Dioxide Anion Gap BUN Creatinine Estimated GFR Random Glucose Calcium Total Bilirubin AST ALT Alkaline Phosphatase Total Protein Albumin Blood Type O Positive Antibody Screen Negative MTS Gel Crossmatch See Detail Bld Prod Order Comment - Imaging Impressions Chest X-Ray 05/11/18 02:42 CONCLUSION: 1. No acute cardiopulmonary disease. Caprini VTE Risk Assessment Caprini VTE Risk Assessment: No/Low Risk (score <= 1) Caprini Risk Assessment Model: Point Value = 1 Point Value = 2 Point Value = 3 Point Value = 5 Age 41-60 Minor surgery BMI > 25 kg/m2 Swollen legs Varicose veins or History of unexplained or recurrent spontaneous Oral contraceptives or hormone replacement Sepsis (< 1 month) Serious lung disease, including pneumonia (< 1 month) Abnormal pulmonary function Acute myocardial infarction Congestive heart failure (< 1 month) History of inflammatory bowel disease Medical patient at bed rest Age 61-74 Arthroscopic surgery Major open surgery (> 45 min) Laparoscopic surgery (> 45 min) Malignancy Confined to bed (> 72 hours) Immobilizing plaster cast Central venous access Age >= 75 History of VTE Family history of VTE Factor V Leiden Prothrombin [id number] Lupus anticoagulant Anticardiolipin antibodies Elevated serum homocysteine Heparin-induced thrombocytopenia Other congenital or acquired thrombophilia Stroke (< 1 month) Elective arthroplasty Hip, pelvis, or leg fracture Acute spinal cord injury (< 1 month) Prophylaxis Regimen: Total Risk Factor Score Risk Level Prophylaxis Regimen 0-1 Low Early ambulation 2 Moderate Order ONE of the following: *Sequential Compression Device (SCD) *Heparin 5000 units SQ BID 3-4 Higher Order ONE of the following medications: *Heparin 5000 units SQ TID *Enoxaparin/Lovenox 40 mg SQ daily (WT < 150 kg, CrCl > 30 mL/min) *Enoxaparin/Lovenox 30 mg SQ daily (WT < 150 kg, CrCl > 10-29 mL/min) *Enoxaparin/Lovenox 30 mg SQ BID (WT < 150 kg, CrCl > 30 mL/min) AND/OR *Sequential Compression Device (SCD) 5 or more Highest Order ONE of the following medications: *Heparin 5000 units SQ TID (Preferred with Epidurals) *Enoxaparin/Lovenox 40 mg SQ daily (WT < 150 kg, CrCl > 30 mL/min) *Enoxaparin/Lovenox 30 mg SQ daily (WT < 150 kg, CrCl > 10-29 mL/min) *Enoxaparin/Lovenox 30 mg SQ BID (WT < 150 kg, CrCl > 30 mL/min) AND *Sequential Compression Device (SCD) Assessment and Plan - Assessment (1) Sickle cell pain crisis Code(s): D57.00 - Hb-SS disease with crisis, unspecified Status: Acute (2) Sickle cell anemia Code(s): D57.1 - Sickle-cell disease without crisis Status: Acute - Plan 28-year-old man with Sickle cell crisis Continue with pain management with IV Dilaudid Start IV fluid hydration Resume folic acid, hematology consultation as needed Check reticulocyte count and LDH Sickle cell anemia Transfuse 1 unit packed red blood cells and monitor H&H Leukocytosis Chest x-ray noted and reviewed without any cardiac pulmonary disease Check UA, blood culture and treat accordingly DVT prophylaxis: Lovenox
[2018-05-11] MEDS: Sod Chloride 0.9% Inj 1,000 ML IV.CONT SCH (13:38)
[2018-05-12] MEDS: HYDROmorphone PF Inj 2 MG/ML Vial IV.PUSH PRN ×5 (00:55→19:35)
[2018-05-12] MEDS: Sod Chloride 0.9% Inj 1,000 ML IV.CONT SCH ×2 (05:00→18:24)
[2018-05-12 05:51] LABS: Reticulocyte Percent 14.7 % (0.4-3.0)
[2018-05-12 06:28] LABS: Alanine Aminotransferase 96 U/L (12-78); Albumin 3.3 g/dL (3.4-5.0); Alkaline Phosphatase 126 U/L (45-117); Anion Gap 10 meq/L (5-15); Aspartate Aminotransferase 131 U/L (15-37); Blood Urea Nitrogen 6 mg/dL (7-18); Calcium 8.4 mg/dL (8.5-10.1); Carbon Dioxide 24.3 meq/L (21.0-32.0); Chloride 107 meq/L (98-107); Glomerular Filtration Rate Greater Than 89 mL/min (>89); Glucose,Random 112 mg/dL (74-106); Lactate Dehydrogenase 877 U/L (87-241); Potassium 3.7 meq/L (3.5-5.1); Sodium 141 meq/L (136-145); Total Protein 6.9 g/dL (6.4-8.2)
[2018-05-12] MEDS: Folic Acid 1 MG Tablet PO SCH (11:24)
[2018-05-12] MEDS: Senna/Docusate Sodium 8.6/50 MG Tablet PO SCH ×2 (11:24→20:55)
[2018-05-12 11:31] LABS: Baso # (Auto) 0.1 th/mm3 (0.0-0.2); Baso % (Auto) 0.6 % (0.0-2.0); Eos % (Auto) 0.3 % (0.0-4.0); Hematocrit 25.7 % (39.0-51.0); Hemoglobin 8.7 gm/dL (13.0-17.0); Lymph # (Auto) 1.6 th/mm3 (1.0-4.8); Lymph % (Auto) 14.7 % (9.0-44.0); Mean Corpuscular Hemoglobin 28.5 pg (27.0-34.0); Mean Platelet Volume 9.5 fL (7.0-11.0); Mono # (Auto) 1.5 th/mm3 (0.0-0.9); Mono % (Auto) 13.5 % (0.0-8.0); Neut # (Auto) 7.9 th/mm3 (1.8-7.7); Neut % (Auto) 70.9 % (16.0-70.0); Platelet Count 287 th/mm3 (150-450); Red Blood Count 3.06 mil/mm3 (4.50-5.90); Red Cell Distribution Width 23.8 % (11.6-17.2); White Blood Count 11.2 th/mm3 (4.0-11.0)
--- NOTE | 2018-05-12 11:44 | P.PN ---
Subjective Interval history: Follow-up sickle cell crisis pain/sickle cell anemia May 12, 2018-patient seen and examined, reports some improvement of hip and back pain. Currently afebrile. WBC improving. Denies any shortness of breath. Physical Exam Vital signs: Vital Signs 05/11/18 12:00 05/11/18 12:34 05/11/18 16:00 Temperature 98.5 F 98.5 F 98.1 F Pulse Rate 126 H 126 H 118 H Respiratory Rate 16 16 18 Blood Pressure 101/59 L 101/59 L 119/52 L Pulse Oximetry 94 L 94 L 98 05/11/18 17:56 05/11/18 20:00 05/12/18 00:00 Temperature 99.5 F 99.5 F Pulse Rate 104 H 97 H Respiratory Rate 18 20 20 Blood Pressure 119/58 L 99/50 L Pulse Oximetry 98 95 05/12/18 04:00 05/12/18 08:00 Temperature 99.8 F H 98.3 F Pulse Rate 114 H 99 H Respiratory Rate 20 18 Blood Pressure 113/65 105/55 L Pulse Oximetry 95 97 Intake & Output 05/11/18 05/12/18 05/12/18 18:59 06:59 18:59 Intake Total 1280 / 1280 1200 / 1200 Output Total 700 / 700 300 / 300 400 / 400 Balance 580 / 580 900 / 900 -400 / -400 Weight 54.431 kg Intake: IV 1000 / 1000 NS Inj 1,000 ML @ 70 mls/hr IV. 1000 / 1000 CONT .[id number] [facility] Rx#:[id number] Oral 480 / 480 200 / 200 Intake (Blood Product) Amt 800 / 800 Rbc As-3 Leukoreduced Unit 400 / 400 [id number] Rbc As-3 Leukoreduced Unit 400 / 400 [id number] Output: Urine 700 / 700 300 / 300 400 / 400 Other: Date of Last Bowel Movement 05/10/18 Narrative: GENERAL: NAD SKIN: Warm and dry. HEAD: Normocephalic. EYES: No scleral icterus. No injection or drainage. NECK: Supple, trachea midline. No JVD or lymphadenopathy. CARDIOVASCULAR: Regular rate and rhythm without murmurs, gallops, or rubs. RESPIRATORY: Breath sounds equal bilaterally. No accessory muscle use. GASTROINTESTINAL: Abdomen soft, non-tender, nondistended. MUSCULOSKELETAL: No cyanosis, or edema. BACK: Nontender without obvious deformity. No CVA tenderness. Results - Labs CBC & Chem 7: 05/12/18 10:46 05/12/18 05:25 Laboratory Results - last 24 hr 05/11/18 05/12/18 05/12/18 03:00 05:25 05:25 WBC RBC Hgb Hct MCV MCH MCHC RDW Plt Count MPV Prelim Diff (Auto) Neut % (Auto) Lymph % (Auto) [place] % (Auto) Eos % (Auto) Baso % (Auto) Neut # (Auto) Lymph # (Auto) [place] # (Auto) Eos # (Auto) Baso # (Auto) Differential Comment Retic Count 14.7 H Absolute Retic 445.1 H Sodium 141 Potassium 3.7 Chloride 107 Carbon Dioxide 24.3 Anion Gap 10 BUN 6 L Creatinine 0.75 Estimated GFR Greater than 89 Random Glucose 112 H Calcium 8.4 L Total Bilirubin 4.9 H AST 131 H ALT 96 H Alkaline Phosphatase 126 H Lactate Dehydrogenase 877 H Total Protein 6.9 D Albumin 3.3 L MTS Gel Crossmatch See Detail 05/12/18 10:46 WBC 11.2 H RBC 3.06 L Hgb 8.7 L D Hct 25.7 L MCV 84.0 MCH 28.5 MCHC 34.0 RDW 23.8 H Plt Count 287 MPV 9.5 Prelim Diff (Auto) Slide review pending Neut % (Auto) 70.9 H Lymph % (Auto) 14.7 [place] % (Auto) 13.5 H Eos % (Auto) 0.3 Baso % (Auto) 0.6 Neut # (Auto) 7.9 H Lymph # (Auto) 1.6 [place] # (Auto) 1.5 H Eos # (Auto) 0.0 Baso # (Auto) 0.1 Differential Comment . Retic Count Absolute Retic Sodium Potassium Chloride Carbon Dioxide Anion Gap BUN Creatinine Estimated GFR Random Glucose Calcium Total Bilirubin AST ALT Alkaline Phosphatase Lactate Dehydrogenase Total Protein Albumin MTS Gel Crossmatch Microbiology 05/11/18 13:05 Blood - Peripheral Aerobic Blood Culture - Preliminary No growth in 1 day 05/11/18 13:05 Blood - Peripheral Anaerobic Blood Culture - Preliminary No growth in 1 day 05/11/18 13:10 Blood - Peripheral Aerobic Blood Culture - Preliminary No growth in 1 day 05/11/18 13:10 Blood - Peripheral Anaerobic Blood Culture - Preliminary No growth in 1 day Assessment and Plan - Assessment (1) Sickle cell pain crisis Code(s): D57.00 - Hb-SS disease with crisis, unspecified Status: Acute (2) Sickle cell anemia Code(s): D57.1 - Sickle-cell disease without crisis Status: Acute - Plan 28-year-old man with Sickle cell crisis Continue with pain management with IV Dilaudid, which I will increase to 2 mg IV every 4 hours as needed Sinew IV fluid hydration Continue folic acid, hematology consultation as needed Check reticulocyte count and LDH Sickle cell anemia Transfused 1 unit packed red blood cells 05/11/18 and monitor H&H Leukocytosis-improving Chest x-ray noted and reviewed without any cardiac pulmonary disease UA negative, blood culture NTD and treat accordingly DVT prophylaxis: Lovenox
[2018-05-12 12:25] LABS: Eosinophils 1 % (0-4); Lymphocytes 9 % (9-44); Metamyelocytes 1 % (0-1); Monocytes 11 % (0-8); Myelocytes 2 % (0-0); Tallied Nucleated RBC 15 (0-0); Target Cells 1+
[2018-05-12 12:26] LABS: Basophilic Stippling Moderate; Ovalocytes 1+; Pappenheimer Bodies Present; Platelet Estimate Normal (Normal); Platelet Morphology Normal (Normal); Sickle Cells 1+
[2018-05-13] MEDS: HYDROmorphone PF Inj 2 MG/ML Vial IV.PUSH PRN ×2 (00:32→08:31)
[2018-05-13] MEDS: Folic Acid 1 MG Tablet PO SCH (08:37)
[2018-05-13] MEDS: Senna/Docusate Sodium 8.6/50 MG Tablet PO SCH (08:37)
--- NOTE | 2018-05-13 12:41 | P.PN ---
Subjective Interval history: Follow-up sickle cell crisis pain/sickle cell anemia May 12, 2018-patient seen and examined, reports some improvement of hip and back pain. Currently afebrile. WBC improving. Denies any shortness of breath. May 13, 2018-patient seen and examined, states he is feeling much better and is back to his baseline. Afebrile. Physical Exam Vital signs: Vital Signs 05/12/18 16:00 05/12/18 20:00 05/13/18 00:00 Temperature 98.1 F 98.9 F 99.5 F Pulse Rate 101 H 106 H 74 Respiratory Rate 18 20 18 Blood Pressure 120/56 L 99/49 L 113/56 L Pulse Oximetry 96 100 98 Intake & Output 05/12/18 05/13/18 05/13/18 18:59 06:59 18:59 Intake Total 1200 / 1200 720 / 720 Output Total 1900 / 1900 850 / 850 Balance -700 / -700 -130 / -130 Intake: Oral 1200 / 1200 720 / 720 Output: Urine 1900 / 1900 850 / 850 Other: Date of Last Bowel Movement 05/10/18 05/10/18 Narrative: GENERAL: NAD SKIN: Warm and dry. HEAD: Normocephalic. EYES: No scleral icterus. No injection or drainage. NECK: Supple, trachea midline. No JVD or lymphadenopathy. CARDIOVASCULAR: Regular rate and rhythm without murmurs, gallops, or rubs. RESPIRATORY: Breath sounds equal bilaterally. No accessory muscle use. GASTROINTESTINAL: Abdomen soft, non-tender, nondistended. MUSCULOSKELETAL: No cyanosis, or edema. BACK: Nontender without obvious deformity. No CVA tenderness. Results - Labs CBC & Chem 7: 05/12/18 10:46 05/12/18 05:25 Microbiology 05/11/18 13:05 Blood - Peripheral Aerobic Blood Culture - Preliminary No growth in 2 days 05/11/18 13:05 Blood - Peripheral Anaerobic Blood Culture - Preliminary No growth in 2 days 05/11/18 13:10 Blood - Peripheral Aerobic Blood Culture - Preliminary No growth in 2 days 05/11/18 13:10 Blood - Peripheral Anaerobic Blood Culture - Preliminary No growth in 2 days Assessment and Plan - Assessment (1) Sickle cell pain crisis Code(s): D57.00 - Hb-SS disease with crisis, unspecified Status: Acute (2) Sickle cell anemia Code(s): D57.1 - Sickle-cell disease without crisis Status: Acute - Plan 28-year-old man with Sickle cell crisis-improved, patient now back to his baseline Continue with pain management with IV Dilaudid Sinew IV fluid hydration Continue folic acid, hematology consultation as needed Check reticulocyte count and LDH Sickle cell anemia Transfused 1 unit packed red blood cells 05/11/18 and monitor H&H Leukocytosis-improving Chest x-ray noted and reviewed without any cardiac pulmonary disease UA negative, blood culture NTD and treat accordingly DVT prophylaxis: [facility] Prescription Drug Monitoring Database has been queried and verified prior to prescribing the controlled substance. Acute pain exception. This patient has normal, predicted, physiological, and time limited response to an adverse mechanical stimulus associated with surgery, trauma, or acute illness as described in my notes. There is a lack of alternative treatment options other than to include the prescribed narcotic treatment for this condition
--- NOTE | 2018-05-13 12:42 | P.DS ---
Date of admission: 05/11/18 04:41 Primary care physician: No Primary Care Physician Anticipated date of discharge: 05/13/18 Brief History from admission: 28-year-old male with past medical history significant for sickle cell disease, crisis and sickle cell anemia presented to the ED for evaluation of an acute onset of sickle cell pain crises mostly in his bilateral hips and back which is consistent with patient's usual pain crises. He also reported that he was having subjective fever. In the ED, patient was found to be severely anemic with H&H of 6.1/18.3. He denies any GI bleed DS: Diagnosis - Discharge Diagnosis (1) Sickle cell pain crisis Status: Acute (2) Sickle cell anemia Status: Acute DS: Medications - Discharge Medications Prescriptions: folic acid 1 mg PO DAILY #30 tab hydrocodone-acetaminophen [[place]] 1 tab PO Q4H PRN #15 tab PRN Reason: Acute pain DS: Summary Hospital Course: While in hospital, patient was treated for: Sickle cell crisis-improved, patient now back to his baseline Continue with pain management with IV Dilaudid Treated with IV fluid hydration Continue folic acid Check reticulocyte count and LDH Sickle cell anemia Transfused 1 unit packed red blood cells 05/11/18 and monitor H&H Leukocytosis-improving Chest x-ray noted and reviewed without any cardiac pulmonary disease UA negative, blood culture NTD and treat accordingly DVT prophylaxis: Lovenox - Time Spent with Patient Total time spent providing and/or coordinating discharge services: Less than 30 minutes - Quality: VTE Deep Vein Thrombosis/Pulmonary Embolism Present on Admission: No Exam Vital signs: Vital Signs 05/12/18 16:00 05/12/18 20:00 05/13/18 00:00 Temperature 98.1 F 98.9 F 99.5 F Pulse Rate 101 H 106 H 74 Respiratory Rate 18 20 18 Blood Pressure 120/56 L 99/49 L 113/56 L Pulse Oximetry 96 100 98 Intake & Output 05/12/18 05/13/18 05/13/18 18:59 06:59 18:59 Intake Total 1200 / 1200 720 / 720 Output Total 1900 / 1900 850 / 850 Balance -700 / -700 -130 / -130 Intake: Oral 1200 / 1200 720 / 720 Output: Urine 1900 / 1900 850 / 850 Other: Date of Last Bowel Movement 05/10/18 05/10/18 Narrative: GENERAL: NAD SKIN: Warm and dry. HEAD: Normocephalic. EYES: No scleral icterus. No injection or drainage. NECK: Supple, trachea midline. No JVD or lymphadenopathy. CARDIOVASCULAR: Regular rate and rhythm without murmurs, gallops, or rubs. RESPIRATORY: Breath sounds equal bilaterally. No accessory muscle use. GASTROINTESTINAL: Abdomen soft, non-tender, nondistended. MUSCULOSKELETAL: No cyanosis, or edema. BACK: Nontender without obvious deformity. No CVA tenderness. Results Procedures completed during hospitalization: None Labs on day of discharge: Preliminary micro results at discharge 05/11/18 13:05 Aerobic Blood Culture - Preliminary Blood - Peripheral No growth in 2 days Anaerobic Blood Culture - Preliminary No growth in 2 days 05/11/18 13:10 Aerobic Blood Culture - Preliminary Blood - Peripheral No growth in 2 days Anaerobic Blood Culture - Preliminary No growth in 2 days - Impressions ITS Impressions Chest X-Ray 05/11/18 02:42 CONCLUSION: 1. No acute cardiopulmonary disease. Discharge Plan - Discharge Disposition Patient Disposition: Discharge Home - Discharge Condition Condition: Good - Discharge Order Discharge Orders: Discharge Order (Routine); Ordered 05/13/18 Ordered By: Ish Ospina - Physicians Team Primary Care Provider: Primary Care Physici,No Attending Provider: Ish Ospina
== END 2018-05-13 15:51 | disposition home or self-care (01) ==
LOC: NEPE 02:01 → NEDA 04:41 → N06 05:51
PROVIDERS: ADMIT Hospitalist; ATTEND Hospitalist